=== PATIENT | female | born 1950 | race Caucasian/White ===

== ENCOUNTER 2018-09-17 09:07 | Emergency (ER) | payer MEDICARE, OTHER ==
[2018-09-17 09:20] VITALS: RESP 18
--- NOTE | 2018-09-17 10:02 | ED ---
Back Pain HPI - General Chief Complaint: Back Pain/Injury Stated Complaint: back pain Time Seen by Provider: 09/17/18 09:32 Source: patient, RN notes reviewed Mode of arrival: ambulatory Limitations: no limitations - History of Present Illness Initial Comments: This a 68-year-old female presents emergency Department chief complaint of low back pain. Patient states she injured it early Monday morning. Patient states that she has to give her son 24-hour care states that he woke up in [place] screaming, having diarrhea and urinated on the floor in the bathroom. She states that she was able to get him in the bathtub to clean up but states that she went to lift him out of the bathtub and felt a pop in her low back. She's had pain ever since it does radiate slightly into her right hip but denies any pain or paresthesias of her lower extremity. Denies any saddle anesthesias, bowel or bladder incontinence or retention. Patient states she has no dysuria no hematuria no history of herniated disc. Patient denies any fevers or chills. Patient does state that he is worse with movement and states she gets good relief while laying flat on her back. - Related Data Home Medications Medication Instructions Recorded Confirmed metFORMIN HCL [Glucophage] 500 mg PO BID 01/21/16 09/17/18 sitaGLIPtin [Januvia] 100 mg PO DAILY 01/21/16 09/17/18 Lisinopril [Zestril] 10 mg PO DAILY 09/17/18 09/17/18 Metoprolol Tartrate [Lopressor] 12.5 mg PO BID 09/17/18 09/17/18 glipiZIDE [Glucotrol] 10 mg PO AC-BRKFST 09/17/18 09/17/18 Previous Rx's Medication Instructions Recorded Albuterol Inhaler [Ventolin Hfa 1 - 2 puff INHALATION RT-Q6H PRN 07/19/15 Inhaler] #1 puff Allergies Allergy/AdvReac Type Severity Reaction Status Date / Time No Known Allergies Allergy Verified 09/17/18 10:11 Review of Systems ROS Statement: Those systems with pertinent positive or pertinent negative responses have been documented in the HPI. ROS Other: All systems not noted in ROS Statement are negative. Past Medical History Past Medical History: Diabetes Mellitus, Hyperlipidemia, Hypertension, Myocardial Infarction ([place]) Additional Past Medical History / Comment(s): PERIPHERALLY NEUROPATHY,. SINUS ALLERGIES. Last Myocardial Infarction Date:: 06-14-15 History of Any Multi-Drug Resistant Organisms: None Reported Past Surgical History: Adenoidectomy, Heart Catheterization, Tonsillectomy, Tubal Ligation Additional Past Surgical History / Comment(s): Oopherectomy, kidney stent. COLONOSCOPY Past Anesthesia/Blood Transfusion Reactions: No Reported Reaction Past Psychological History: No Psychological Hx Reported Smoking Status: Current every day smoker Past Alcohol Use History: Daily Past Drug Use History: None Reported - Past Family History Mother Family Medical History: Pneumonia Father Family Medical History: GI Bleed, Myocardial Infarction (ID) Additional Family Medical History / Comment(s): PATIENT AGE 12 WHEN FATHER -- HEART ATTACK AND BLEEDING ULCERS, ALCOHOLIC General Exam Limitations: no limitations General appearance: alert, in no apparent distress Head exam: Present: atraumatic, normocephalic, normal inspection Neck exam: Present: normal inspection. Absent: tenderness, meningismus, lymphadenopathy Respiratory exam: Present: normal lung sounds bilaterally. Absent: respiratory distress, wheezes, rales, rhonchi, stridor Cardiovascular Exam: Present: regular rate, normal rhythm, normal heart sounds. Absent: systolic murmur, diastolic murmur, rubs, gallop, clicks GI/Abdominal exam: Present: soft, normal bowel sounds. Absent: distended, tenderness, guarding, rebound, rigid Extremities exam: Present: normal inspection, full ROM, normal capillary refill, other (Lower extremity strength equal bilaterally, neurovascular intact equal color equal warmth). Absent: tenderness, pedal edema, joint swelling, calf tenderness Back exam: Present: normal inspection, full ROM, tenderness (Mild right lumbar paraspinal tenderness), paraspinal tenderness. Absent: vertebral tenderness Neurological exam: Present: alert, oriented X3, CN II-XII intact Skin exam: Present: warm, dry, intact, normal color. Absent: rash Course Vital Signs 09/17/18 09:18 Temperature 98.0 F Pulse Rate 80 Respiratory 18 Rate Blood Pressure 169/64 O2 Sat by Pulse 98 Oximetry Medical Decision Making - Medical Decision Making 60-year-old female presented emergency Department chief complaint of low back pain. Patient had x-rays of lumbar spine shows evidence of mild compression fracture. Patient will follow-up with orthopedics. Patient advised to not lift, twist or bend. Patient understands these recommendations. Patient we discharged with pain medication return parameters were discussed. - Lab Data Lab Results 09/17/18 Range/Units 10:00 Urine Color Light Yellow Urine Appearance Cloudy H (Clear) Urine pH 5.0 (5.0-8.0) Ur Specific [place] 1.005 (1.001-1.035) Urine Protein Negative (Negative) Urine Glucose (UA) 2+ H (Negative) Urine Ketones Negative (Negative) Urine Blood Negative (Negative) Urine Nitrite Negative (Negative) Urine Bilirubin Negative (Negative) Urine Urobilinogen <2.0 (<2.0) mg/dL Ur Leukocyte Esterase Large H (Negative) Urine RBC 1 (0-5) /hpf Urine WBC 3 (0-5) /hpf Ur Squamous Epith Cells 7 H (0-4) /hpf Calcium Oxalate Crystal Rare H (None) /hpf Urine Bacteria Rare H (None) /hpf Urine Mucus Rare H (None) /hpf Disposition Clinical Impression: Vertebral compression fracture Disposition: HOME SELF-CARE Condition: Stable Instructions (If sedation given, give patient instructions): Acute Low Back Pain (ED) Additional Instructions: Please return to the Emergency Department if symptoms worsen or any other concerns. Is patient prescribed a controlled substance at d/c from ED?: No Referrals: Justin Clifford MD [Primary Care Provider] - 1-2 days Alicia Shaver DO [Doctor of Osteopathic Medicine] - 1-2 days
--- NOTE | 2018-09-17 10:20 | XR ---
EXAMINATION TYPE: XR lumbosacral spine min 4V DATE OF EXAM: 09/17/2018 COMPARISON: None HISTORY: Pain, low back TECHNIQUE: Five-view lumbar spine FINDINGS: There 5 lumbar-type vertebral bodies. Pedicles are intact. Some mild facet degenerative kylee nges present greater at L5-S1. There is narrowing of the disc height L4-5. Remaining disc heights are preserved. Grade 1 spondylolisthesis of L5 anterior on S1 is present. Some mild superior endplate co mpression of L1 may be present. This is indeterminate age. IMPRESSION: 1. Mild compression deformity superior endplate L1 of indeterminate age. Correlate with the patient' s symptoms. 2. Degenerative disc changes L4-5. 3. Grade 1 spondylolisthesis of L5 anterior on S1.
[2018-09-17 10:52] LABS: Appearance,Urine Cloudy (Clear); Bacteria,Urine Rare /hpf; Bilirubin,Urine Negative (Negative); Blood,Urine Negative (Negative); Calcium Oxalate Crystals,Urine Rare /hpf; Color,Urine Light Yellow; Glucose,Urine (UA) 2+ (Negative); Ketones,Urine Negative (Negative); Leukocyte Esterase,Urine Large (Negative); Mucus,Urine Rare /hpf; Nitrite,Urine Negative (Negative); Protein,Urine Negative (Negative); RBC,Urine 1 /hpf (0-5); Specific Gravity,Urine 1.005 (1.001-1.035); Squamous Epithelial Cell,Urine 7 /hpf (0-4); Urobilinogen,Urine <2.0 mg/dL (<2.0)
[2018-09-17] MEDS ORDERED: ACET/COD 300 MG/30 MG STARTER PACK 6 TAB BTL PO STA (11:00)
[2018-09-17 11:09] VITALS: BP 119/81; PULSE 64; TEMP 97.8
== END 2018-09-17 11:10 | disposition home or self-care (01) ==
LOC: EC 09:07
DX: S32.019A Unspecified fracture of first lumbar vertebra, initial encounter for closed fracture (principal); R19.7 Diarrhea, unspecified; I10 Essential (primary) hypertension; I25.2 Old myocardial infarction; E11.42 Type 2 diabetes mellitus with diabetic polyneuropathy; F17.200 Nicotine dependence, unspecified, uncomplicated; Z96.0 Presence of urogenital implants; Z98.51 Tubal ligation status; Z98.890 Other specified postprocedural states; Z79.84 Long term (current) use of oral hypoglycemic drugs; Z79.899 Other long term (current) drug therapy; X50.0XXA Overexertion from strenuous movement or load, initial encounter; Y92.009 Unspecified place in unspecified non-institutional (private) residence as the place of occurrence of the external cause; Y93.F2 Activity, caregiving, lifting
CPT/HCPCS: 72110; 81001; 99283

== ENCOUNTER 2020-01-31 22:42 | Inpatient (IN) | payer MEDICARE, OTHER ==
--- NOTE | 2020-01-31 23:31 | XR ---
EXAMINATION TYPE: XR Hip RT and AP Pelvis DATE OF EXAM: 01/31/2020 COMPARISON: NONE HISTORY: Hip pain. Fall yesterday. TECHNIQUE: 3 views FINDINGS: There is evidence of acute impacted subcapital fracture right femur. There is no dislocatio n. Pelvic ring is intact. Proximal left femur is intact. Sacroiliac joints appear normal. IMPRESSION: Acute impacted subcapital fracture right femur.
--- NOTE | 2020-01-31 23:36 | CT ---
EXAMINATION TYPE: CT brain wo con DATE OF EXAM: 01/31/2020 COMPARISON: 04/29/2017 HISTORY: Fall Headache CT DLP: 1099.4 mGycm Automated exposure control for dose reduction was used. There is mild cerebral cortical atrophy. There is no mass effect nor midline shift. There is no sign of intracranial hemorrhage. There is 3 x 1 cm area of hypodensity in the right anterior internal caps ule related to old infarct. The calvarium is intact. Cerebellum is intact. Sella turcica appears norm al. IMPRESSION: Cerebral atrophy. 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 No acute intracranial abnormality. No change co mpared to old exam.
[2020-01-31] MEDS ORDERED: THIAMINE 100 MG/ML 2 ML VIAL IM STA (23:41)
[2020-01-31] MEDS ORDERED: LORazepam 2 MG/ML INJ IV PRN ×3 (23:41)
[2020-01-31] MEDS ORDERED: MORPHINE SULFATE 4 MG/ML SYRINGE IV STA (23:46)
[2020-02-01] MEDS ORDERED: hydrALAZINE HCL 20 MG/ML 1 ML VIAL IVP STA (00:06)
--- NOTE | 2020-02-01 00:10 | ED ---
General Adult HPI - General Source: patient, RN notes reviewed, old records reviewed Mode of arrival: wheelchair Limitations: no limitations <Milton Cisneros - Last Filed: 02/01/20 01:11> <Chad Kuhn - Last Filed: 02/02/20 07:55> - General Chief complaint: Fall Stated complaint: Fall Time Seen by Provider: 01/31/20 22:50 - History of Present Illness Initial comments: 69-year-old female patient presents ED chief complaint of fall yesterday area patient reports that yesterday she was walking she fell forward tripping on a sidewalk hitting her face and landing on her right hip. Patient chief complaint is right hip pain. Denies any headache loss of consciousness or any other acute complaints. Systemic: Pt denies fatigue, fever/chills, rash. Pt denies weakness, night sweats, weight loss. Neuro: Pt denies headache, visual disturbances, syncope or pre-syncope. HEENT: Pt denies ocular discharge or irritation, otalgia, rhinorrhea, pharyngitis or notable lymphadenopathy. Cardiopulmonary: Pt denies chest pain, SOB, heart palpitations, dyspnea on exertion. Abdominal/GI: Pt denies abdominal pain, n/v/d. : Pt denies dysuria, burning w/ urination, frequency/urgency. Denies new onset urinary or bowel incontinence. Neuro: Pt denies new onset weakness, paresthesias. (Milton Cisneros) - Related Data Home Medications Medication Instructions Recorded Confirmed metFORMIN HCL [Glucophage] 500 mg PO BID 01/21/16 02/01/20 sitaGLIPtin [Januvia] 100 mg PO DAILY 01/21/16 02/01/20 Metoprolol Tartrate [Lopressor] 12.5 mg PO BID 09/17/18 02/01/20 glipiZIDE [Glucotrol] 10 mg PO AC-BRKFST 09/17/18 02/01/20 lisinopriL [Zestril] 10 mg PO DAILY 09/17/18 02/01/20 Albuterol Sulfate [Ventolin HFA] 1 - 2 puff INHALATION RT-Q6H PRN 02/01/20 02/01/20 Atorvastatin [Lipitor] 10 mg PO DAILY 02/01/20 02/01/20 Allergies Allergy/AdvReac Type Severity Reaction Status Date / Time No Known Allergies Allergy Verified 02/01/20 13:24 Review of Systems ROS Other: All systems not noted in ROS Statement are negative. <Milton Cisnreos - Last Filed: 02/01/20 01:11> ROS Other: All systems not noted in ROS Statement are negative. <HattieChad - Last Filed: 02/02/20 07:55> ROS Statement: Those systems with pertinent positive or pertinent negative responses have been documented in the HPI. Past Medical History Past Medical History: Diabetes Mellitus, Hyperlipidemia, Hypertension, Myocardial Infarction ([place]) Additional Past Medical History / Comment(s): PERIPHERALLY NEUROPATHY,. SINUS ALLERGIES. Last Myocardial Infarction Date:: 06-14-15 History of Any Multi-Drug Resistant Organisms: None Reported Past Surgical History: Adenoidectomy, Heart Catheterization, Tonsillectomy, Tubal Ligation Additional Past Surgical History / Comment(s): Oopherectomy, kidney stent. COLONOSCOPY Past Anesthesia/Blood Transfusion Reactions: No Reported Reaction Past Psychological History: No Psychological Hx Reported Smoking Status: Current every day smoker Past Alcohol Use History: Daily Past Drug Use History: None Reported - Past Family History Mother Family Medical History: Pneumonia Father Family Medical History: GI Bleed, Myocardial Infarction (MS) Additional Family Medical History / Comment(s): PATIENT AGE 12 WHEN FATHER -- HEART ATTACK AND BLEEDING ULCERS, ALCOHOLIC <Milton Cisneros - Last Filed: 02/01/20 01:11> - Past Family History Mother Family Medical History: Pneumonia Father Family Medical History: GI Bleed, Myocardial Infarction (MS) Additional Family Medical History / Comment(s): PATIENT AGE 12 WHEN FATHER -- HEART ATTACK AND BLEEDING ULCERS, ALCOHOLIC Brother(s) Family Medical History: Diabetes Mellitus Sister(s) Family Medical History: Cancer (Breast cancer) Daughter(s) Family Medical History: No Reported History Son(s) Family Medical History: No Reported History <Chad Kuhn - Last Filed: 02/02/20 07:55> General Exam Limitations: no limitations <Milton Cisneros - Last Filed: 02/01/20 01:11> - General Exam Comments Initial Comments: Constitutional: NAD, AOX3, Pt has pleasant affect. HEENT: NC/AT, trachea midline, neck supple, no lymphadenopathy. External ears appear normal, without discharge. Mucous membranes moist. Eyes PERRLA, EOM intact. There is no scleral icterus. No pallor noted. Cardiopulmonary: RRR, no murmurs, rubs or gallops, no JVD noted. Lungs CTAB in anterior and posterior oliver. No peripheral edema. Abdominal exam: Abdomen soft and non-distended. Abdomen non-tender to palpation in all 4 quadrants. Bowel sounds active in LLQ. No hepatosplenomegaly. No ecchymosis Neuro: CN II-XII intact. No nuchal rigidity. No raccon eyes, no gorman sign, no hemotympanum. No cervical spinal tenderness. MSK: Right hip is mildly tender to palpation. No other areas of tenderness. Distal pulses are intact and equal. Full active ROM in upper extremities, 5/5 stregnth. Full active range of motion left lower extremity. (Milton Cisneros) Course Vital Signs 01/31/20 02/01/20 02/01/20 22:46 00:40 02:26 Temperature 98.2 F 98.4 F 98.2 F Pulse Rate 95 82 82 Respiratory 18 14 16 Rate Blood Pressure 193/97 132/76 158/85 O2 Sat by Pulse 99 98 98 Oximetry Medical Decision Making - Lab Data Result diagrams: 02/01/20 00:17 02/01/20 00:17 - EKG Data -: EKG Interpreted by Az (and Dr. Moffett ) <Milton Cisneros - Last Filed: 02/01/20 01:11> - Lab Data Result diagrams: 02/01/20 00:17 02/01/20 08:08 <Chad Kuhn - Last Filed: 02/02/20 07:55> - Medical Decision Making 69-year-old female patient presents today for evaluation of a fall yesterday and had pain today. Patient reports she has been unable to walk on her hip seems to the pain. Plain film of right hip didn't display acute impacted subcapital fracture right femur. CT brain without contrast does not display any acute process. Dizziness when she presses. Left investigations are overall unremarkable. Patient was hypertensive and was given 1 dose of antihypertensive medication. EKG is nonischemic. Patient will be admitted for orthopedic evaluation. Patient is a regular drinker and was placed on a CIWA scale. Case discussed with Dr. Moffett. (Milton Cisneros) I saw this patient in conjunction with the physician surgical physician assistant. I performed independent history and physical exam. Agree with case management. (Chad Kuhn) - Lab Data Lab Results 01/31/20 02/01/20 02/01/20 Range/Units 23:40 00:17 00:17 WBC 10.4 (3.8-10.6) k/uL RBC 4.40 (3.80-5.40) m/uL Hgb 14.1 (11.4-16.0) gm/dL Hct 42.9 (34.0-46.0) % MCV 97.4 (80.0-100.0) fL MCH 32.1 (25.0-35.0) pg MCHC 32.9 (31.0-37.0) g/dL RDW 12.8 (11.5-15.5) % Plt Count 264 (150-450) k/uL Neutrophils % 74 % Lymphocytes % 14 % Monocytes % 10 % Eosinophils % 1 % Basophils % 0 % Neutrophils # 7.7 (1.3-7.7) k/uL Lymphocytes # 1.4 (1.0-4.8) k/uL Monocytes # 1.0 (0-1.0) k/uL Eosinophils # 0.1 (0-0.7) k/uL Basophils # 0.0 (0-0.2) k/uL PT 9.4 (9.0-12.0) sec INR 0.9 (<1.2) APTT 24.2 (22.0-30.0) sec Sodium (137-145) mmol/L Potassium (3.5-5.1) mmol/L Chloride (98-107) mmol/L Carbon Dioxide (22-30) mmol/L Anion Gap mmol/L BUN (7-17) mg/dL Creatinine (0.52-1.04) mg/dL Est GFR (CKD-EPI)AfAm (>60 ml/min/1.73 sqM) Est GFR (CKD-EPI)NonAf (>60 ml/min/1.73 sqM) Glucose (74-99) mg/dL Calcium (8.4-10.2) mg/dL Total Bilirubin (0.2-1.3) mg/dL AST (14-36) U/L ALT (4-34) U/L Alkaline Phosphatase (38-126) U/L Total Protein (6.3-8.2) g/dL Albumin (3.5-5.0) g/dL Urine Color Yellow Urine Appearance Clear (Clear) Urine pH 6.5 (5.0-8.0) Ur Specific [place] 1.015 (1.001-1.035) Urine Protein Trace H (Negative) Urine Glucose (UA) 4+ H (Negative) Urine Ketones Negative (Negative) Urine Blood Negative (Negative) Urine Nitrite Negative (Negative) Urine Bilirubin Negative (Negative) Urine Urobilinogen <2.0 (<2.0) mg/dL Ur Leukocyte Esterase Negative (Negative) Blood Type Confirm 02/01/20 02/01/20 Range/Units 00:17 00:17 WBC (3.8-10.6) k/uL RBC (3.80-5.40) m/uL Hgb (11.4-16.0) gm/dL Hct (34.0-46.0) % MCV (80.0-100.0) fL MCH (25.0-35.0) pg MCHC (31.0-37.0) g/dL RDW (11.5-15.5) % Plt Count (150-450) k/uL Neutrophils % % Lymphocytes % % Monocytes % % Eosinophils % % Basophils % % Neutrophils # (1.3-7.7) k/uL Lymphocytes # (1.0-4.8) k/uL Monocytes # (0-1.0) k/uL Eosinophils # (0-0.7) k/uL Basophils # (0-0.2) k/uL PT (9.0-12.0) sec INR (<1.2) APTT (22.0-30.0) sec Sodium 133 L (137-145) mmol/L Potassium 4.0 (3.5-5.1) mmol/L Chloride 99 (98-107) mmol/L Carbon Dioxide 27 (22-30) mmol/L Anion Gap 7 mmol/L BUN 10 (7-17) mg/dL Creatinine 0.44 L (0.52-1.04) mg/dL Est GFR (CKD-EPI)AfAm >90 (>60 ml/min/1.73 sqM) Est GFR (CKD-EPI)NonAf >90 (>60 ml/min/1.73 sqM) Glucose 185 H (74-99) mg/dL Calcium 9.5 (8.4-10.2) mg/dL Total Bilirubin 0.9 (0.2-1.3) mg/dL AST 30 (14-36) U/L ALT 20 (4-34) U/L Alkaline Phosphatase 102 (38-126) U/L Total Protein 7.3 (6.3-8.2) g/dL Albumin 4.6 (3.5-5.0) g/dL Urine Color Urine Appearance (Clear) Urine pH (5.0-8.0) Ur Specific [place] (1.001-1.035) Urine Protein (Negative) Urine Glucose (UA) (Negative) Urine Ketones (Negative) Urine Blood (Negative) Urine Nitrite (Negative) Urine Bilirubin (Negative) Urine Urobilinogen (<2.0) mg/dL Ur Leukocyte Esterase (Negative) Blood Type Confirm A Positive - EKG Data EKG Comments: Ventricular rate 79, [place] interval 158, QRS 88, QT/QTc 470/88. Possible prior inferior infarct AGE INDETERMINATE. ANTERIOR SEPTAL INFARCT AGE UNDETERMINED. NO CONCERN FOR ACUTE ISCHEMIA AT THIS TIME. (Milton Cisneros) Disposition Is patient prescribed a controlled substance at d/c from ED?: No <iMlton Cisneros - Last Filed: 02/01/20 01:11> <Chad Kuhn - Last Filed: 02/02/20 07:55> Clinical Impression: Hip fracture Disposition: ADMITTED IP TO THIS HOSP Condition: Serious
[2020-02-01 00:25] LABS: Basophils % (A) 0 %; Eosinophils # (A) 0.1 k/uL (0-0.7); Eosinophils % (A) 1 %; HCT 42.9 % (34.0-46.0); HGB 14.1 gm/dL (11.4-16.0); Lymphocytes # (A) 1.4 k/uL (1.0-4.8); Lymphocytes % (A) 14 %; MCH 32.1 pg (25.0-35.0); MCHC 32.9 g/dL (31.0-37.0); MCV 97.4 fL (80.0-100.0); Mean Platelet Volume 6.6; Monocytes % (A) 10 %; Neutrophils # (A) 7.7 k/uL (1.3-7.7); Neutrophils % (A) 74 %; Platelet Count 264 k/uL (150-450); RDW 12.8 % (11.5-15.5); WBC 10.4 k/uL (3.8-10.6)
[2020-02-01 00:35] LABS: ALT 20 U/L (4-34); AST 30 U/L (14-36); African American GFR (CKD) >90 (>60 ml/min/1.73 sqM); Albumin 4.6 g/dL (3.5-5.0); Alkaline Phosphatase 102 U/L (38-126); Anion Gap 7 mmol/L; Blood Urea Nitrogen 10 mg/dL (7-17); Calcium 9.5 mg/dL (8.4-10.2); Carbon Dioxide 27 mmol/L (22-30); Chloride 99 mmol/L (98-107); Glucose 185 mg/dL (74-99); Non-African American GFR(CKD) >90 (>60 ml/min/1.73 sqM); Sodium 133 mmol/L (137-145); Total Bilirubin 0.9 mg/dL (0.2-1.3); Total Protein 7.3 g/dL (6.3-8.2)
[2020-02-01 00:49] LABS: INR 0.9 (<1.2); Partial Thromboplastin Time 24.2 sec (22.0-30.0); Prothrombin Time 9.4 sec (9.0-12.0)
--- NOTE | 2020-02-01 01:10 | XR ---
EXAMINATION TYPE: XR chest 1V DATE OF EXAM: 02/01/2020 COMPARISON: 07/19/2015 HISTORY: Preop. Right hip fracture. TECHNIQUE: Single view FINDINGS: There is no heart failure nor confluent pneumonic infiltrate. Costophrenic angles are clear . Heart size is normal. Bony thorax is intact. IMPRESSION: No active cardiopulmonary disease. No change. Normal heart.
[2020-02-01] MEDS ORDERED: NALOXONE 0.4 MG/ML 1 ML VIAL IV PRN (01:13)
[2020-02-01] MEDS: SODIUM CHLORIDE 0.9% 1,000 ML IV SCH ×2 (02:33→17:02)
[2020-02-01 08:51] LABS: African American GFR (CKD) >90 (>60 ml/min/1.73 sqM); Anion Gap 5 mmol/L; Blood Urea Nitrogen 8 mg/dL (7-17); Carbon Dioxide 28 mmol/L (22-30); Chloride 100 mmol/L (98-107); Glucose 175 mg/dL (74-99); Non-African American GFR(CKD) >90 (>60 ml/min/1.73 sqM); Potassium 3.9 mmol/L (3.5-5.1); Sodium 133 mmol/L (137-145)
[2020-02-01] MEDS: THIAMINE 100 MG TAB PO SCH ×2 (09:30→18:10)
[2020-02-01] MEDS: MORPHINE SULFATE 4 MG/ML SYRINGE IV PRN ×2 (09:35→23:20)
--- NOTE | 2020-02-01 11:32 | P.HPOR ---
History of Present Illness H&P Date: 02/01/20 This is a 69 year-old female who is admitted for right hip fracture. Patient is seen and evaluated at bedside today. Patient states that she tripped and fell 2 days ago at a bon[place]. Patient states that she did hit her head, but she denies any loss of conciousness. Patient admits to pain in the right hip today. Patient's past medical history is significant for diabetes mellitus with peripheral neuropathy, hypertension, hyperlipidemia and myocardial infarction. Patient denies any fever/chills, numbness, weakness, tingling, abdominal pain, shortness of breath or chest pain. Review of Systems See HPI. Past Medical History Past Medical History: Diabetes Mellitus, Hyperlipidemia, Hypertension, My ocardial Infarction ([place]) Additional Past Medical History / Comment(s): PERIPHERALLY NEUROPATHY,. SINUS ALLERGIES. [place], getting hearing aides. Last Myocardial Infarction Date:: 06-14-15 History of Any Multi-Drug Resistant Organisms: None Reported Past Surgical History: Adenoidectomy, Heart Catheterization, Tonsillectomy, Tubal Ligation Additional Past Surgical History / Comment(s): Left Oopherectomy, kidney stent. COLONOSCOPY Past Anesthesia/Blood Transfusion Reactions: No Reported Reaction Smoking Status: Current every day smoker Past Alcohol Use History: Daily Additional Past Alcohol Use History / Comment(s): STARTED SMOKING AT AGE 13 and currently still is. Pack last 2 days to 1 day. Drinks 2 tall beers daily. - Past Family History Mother Family Medical History: Pneumonia Father Family Medical History: GI Bleed, Myocardial Infarction (AL) Additional Family Medical History / Comment(s): PATIENT AGE 12 WHEN FATHER -- HEART ATTACK AND BLEEDING ULCERS, ALCOHOLIC Medications and Allergies Home Medications Medication Instructions Recorded Confirmed Type Albuterol Inhaler (Mhu) [Ventolin 1 - 2 puff INHALATION RT-Q6H PRN 07/19/15 09/17/18 Rx Hfa Inhaler (Mhu)] #1 puff metFORMIN HCL [Glucophage] 500 mg PO BID 01/21/16 09/17/18 History sitaGLIPtin [Januvia] 100 mg PO DAILY 01/21/16 09/17/18 History Metoprolol Tartrate [Lopressor] 12.5 mg PO BID 09/17/18 09/17/18 History glipiZIDE [Glucotrol] 10 mg PO AC-BRKFST 09/17/18 09/17/18 History lisinopriL [Zestril] 10 mg PO DAILY 09/17/18 09/17/18 History Allergies Allergy/AdvReac Type Severity Reaction Status Date / Time No Known Allergies Allergy Verified 01/31/20 22:49 Physical Examination On exam patient is resting comfortably in bed in no acute distress. Patient is alert and oriented 3. Right lower extremity is warm and well perfused. There is pain with logroll of the right lower extremity. There is mild tenderness to palpation over the right hip. Skin is intact. There is no ecchymosis. Calf is soft and nontender to palpation. Sensation intact. Patient has good range of motion of the right foot and ankle. Dorsalis pedis pulse is 2+. Neurovascular status circulatory status are intact. There is mild facial bruising. Otherwise head is normocephalic. Patient has good range of motion of the neck without pain or difficulty. Exams of bilateral upper extremities and the left lower extremity are within normal limits. Results X-rays of the right hip and pelvis dated 02/01/2020 show a subcapital fracture of the right hip. Brain CT is negative for any acute process. - Labs Labs: Abnormal Lab Results - Last 24 Hours (Table) 02/01/20 02/01/20 Range/Units 00:17 08:08 Sodium 133 L 133 L (137-145) mmol/L Creatinine 0.44 L 0.46 L (0.52-1.04) mg/dL Glucose 185 H 175 H (74-99) mg/dL H & H 02/01/20 Range/Units 00:17 Hgb 14.1 (11.4-16.0) gm/dL Hct 42.9 (34.0-46.0) % Coagulation 02/01/20 Range/Units 00:17 INR 0.9 (<1.2) Result Diagrams: 02/01/20 00:17 02/01/20 08:08 Assessment and Plan (1) Hip fracture Current Visit: Yes Status: Acute Code(s): S72.009A - FRACTURE OF UNSP PART OF NECK OF UNSP FEMUR, INIT SNOMED Code(s): 528699972 (2) Fall Current Visit: Yes Status: Acute Code(s): W19.XXXA - UNSPECIFIED FALL, INITIAL ENCOUNTER SNOMED Code(s): 9669664 (3) Diabetes Current Visit: No Status: Acute Code(s): E11.9 - TYPE 2 DIABETES MELLITUS WITHOUT COMPLICATIONS SNOMED Code(s): 55783194 (4) HTN (hypertension) Current Visit: No Status: Acute Code(s): I10 - ESSENTIAL (PRIMARY) HYPERTENSION SNOMED Code(s): 43171931 (5) Hyperlipemia Current Visit: No Status: Acute Code(s): E78.5 - HYPERLIPIDEMIA, UNSPECIFIED SNOMED Code(s): 77760289 Plan: #1. Nonweightbearing to the right lower extremity. #2. NPO after midnight. #3. Continue pain control. #4. Appreciate input from medicine. #5. Planning for right hip hemiarthroplasty on 02/02/2020 pending medical clearance and consent.
[2020-02-01 12:17] LABS: Glucose,Whole Blood 224 mg/dL (75-99)
[2020-02-01 13:23] LABS: Appearance,Urine Clear (Clear); Bilirubin,Urine Negative (Negative); Blood,Urine Negative (Negative); Color,Urine Yellow; Glucose,Urine (UA) 4+ (Negative); Ketones,Urine Negative (Negative); Leukocyte Esterase,Urine Negative (Negative); Nitrite,Urine Negative (Negative); PH, Urine 6.5 (5.0-8.0); Protein,Urine Trace (Negative); Specific Gravity,Urine 1.015 (1.001-1.035); Urobilinogen,Urine <2.0 mg/dL (<2.0)
[2020-02-01] MEDS: INSULIN ASPART (NovoLOG) 100 UNIT/ML VIAL SQ SCH ×3 (13:40→20:14)
[2020-02-01] MEDS ORDERED: ENOXAPARIN 40 MG/0.4 ML SYRINGE SQ STA (16:58)
--- NOTE | 2020-02-01 16:59 | P.CONS ---
History of Present Illness - Reason for Consult Consult date: 02/01/20 Medical management - Chief Complaint Right hip fracture after fall - History of Present Illness 69-year-old pleasant female patient of Dr. Deandre Clifford. He she has underlying history of diabetes mellitus hyperlipidemia COPD, PA, diabetes polyneuropathy, admitted through the emergency room secondary to hip fracture that occurred 2 days ago. Apparently patient tripped and fell, at her friend's bonfire, patient denies any loss of consciousness, patient denies any lightheadedness or dizziness of facial pain, however there is abrasions in the face. Patient was seen in emergency room with x-ray showing acute impacted subcapital fracture right femur, chest x-ray x shows no acute disease, normal heart, no pleural effusion bony thorax intact EKG shows normal sinus rhythm, most likely old infe rior PA, no acute changes old anteroseptal infarct, patient currently is a smoker, has chronic cough, patient denies any dyspnea and exertion, no chest pain on exertion. Patient denies any history of CVA in the past, no PE DVT or ulcerations the past. Patient is on Januvia and metformin and glipizide for diabetes control, blood sugars in the hospital ranges between 175-224, creatinine of 0.46 urinalysis shows 4+ glucose no leukocytes. Patient is scheduled to have right hip hemiarthroplasty on 02/02/2020, patient would be cleared with ASA anesthesia risk risk of class II, however uncontrolled diabetes, has COPD, RCR I (revised cardiac risk index) of 0, normal creatinine and no history of CVA, no history of CHF. Patient is asymptomatic with her CAD, she is cleared with average risk patient denies any previous anesthesia problems in the past denies any prolonged intubation or difficulty of intubation, patient has chronic cough with chronic sputum production, pro-calcitonin level to be obtained, empiric Levaquin to be started, nebulized treatments Review of Systems Constitutional: Reports as per HPI, Denies anorexia, Denies chills, Denies chr onic headaches, Denies chronic pain, Denies daytime sleepiness, Denies fatigue, Denies fever, Denies lethargy, Denies malaise, Denies night sweats, Denies poor appetite, Denies sweats, Denies weakness, Denies weight gain, Denies weight loss Ears, nose, mouth and throat: Reports as per HPI, Denies ant. neck pain, Denies bleeding gums, Denies dental pain, Denies dysphagia, Denies epistaxis, Denies headache, Denies hoarseness, Denies mouth pain, Denies nasal congestion, Denies nasal discharge, Denies neck fullness/pressure, Denies neck lump, Denies nose pain, Denies odynophagia, Denies post-nasal drip, Denies sinus pain, Denies sinus pressure, Denies swelling in mouth, Denies swelling in throat, Denies sore throat, Denies vertigo, Denies voice changes Cardiovascular: Reports as per HPI Respiratory: Reports as per HPI, Reports cough (Chronic) Gastrointestinal: Reports as per HPI Genitourinary: Reports as per HPI Menstruation: Reports as per HPI Musculoskeletal: Reports as per HPI, Denies arm numbness/tingling, Denies atrophy, Denies fractures, Denies frequent falls, Denies gait dysfunction, Denies hot joints, Denies leg numbness/tingling, Denies limitation of motion, Denies loss of height, Denies low back pain, Denies morning stiffness, Denies muscle cramps, Denies muscle weakness, Denies myalgias, Denies neck pain, Denies neck stiffness, Denies prior amputations, Denies redness of joints, Denies shooting arm pain, Denies shooting leg pain Integumentary: Reports as per HPI (CC. He deformed toenails, which is curling close to 3 inches long), Reports change in hair/nails Neurological: Reports as per HPI Psychiatric: Reports as per HPI, Denies anhedonia, Denies anxiety, Denies anxiety attacks, Denies change in appetite, Denies change in libido, Denies change in sleep habits, Denies confusion, Denies depression, Denies difficulty concentrating, Denies disorientation, Denies hallucinations, Denies hopelessness, Denies hypersomnia, Denies insomnia, Denies irritability, Denies memory loss, Denies mood swings, Denies paranoia, Denies sadness/tearfulness, Denies sleep disturbances, Denies suicidal ideation Endocrine: Reports as per HPI Hematologic/Lymphatic: Reports as per HPI Allergic/Immunologic: Reports as per HPI Past Medical History Past Medical History: Diabetes Mellitus, Hyperlipidemia, Hypertension, Myocardial Infarction (PA) Additional Past Medical History / Comment(s): PERIPHERALLY NEUROPATHY,. SINUS ALLERGIES. RAMPART, getting hearing aides. Last Myocardial Infarction Date:: 06-14-15 History of Any Multi-Drug Resistant Organisms: None Reported Past Surgical History: Adenoidectomy, Heart Catheterization, Tonsillectomy, Tubal Ligation Additional Past Surgical History / Comment(s): Left Oopherectomy, kidney stent. COLONOSCOPY Past Anesthesia/Blood Transfusion Reactions: No Reported Reaction Smoking Status: Current every day smoker Past Alcohol Use History: Daily Additional Past Alcohol Use History / Comment(s): STARTED SMOKING AT AGE 13 and currently still is. Pack last 2 days to 1 day. Drinks 2 tall beers daily. - Past Family History Mother Family Medical History: Pneumonia Father Family Medical History: GI Bleed, Myocardial Infarction (PA) Additional Family Medical History / Comment(s): PATIENT AGE 12 WHEN FATHER -- HEART ATTACK AND BLEEDING ULCERS, ALCOHOLIC Brother(s) Family Medical History: Diabetes Mellitus Sister(s) Family Medical History: Cancer (Breast cancer) Daughter(s) Family Medical History: No Reported History Son(s) Family Medical History: No Reported History Medications and Allergies Home Medications Medication Instructions Recorded Confirmed Type metFORMIN HCL [Glucophage] 500 mg PO BID 01/21/16 02/01/20 History sitaGLIPtin [Januvia] 100 mg PO DAILY 01/21/16 02/01/20 History Metoprolol Tartrate [Lopressor] 12.5 mg PO BID 09/17/18 02/01/20 History glipiZIDE [Glucotrol] 10 mg PO AC-BRKFST 09/17/18 02/01/20 History lisinopriL [Zestril] 10 mg PO DAILY 09/17/18 02/01/20 History Albuterol Sulfate [Ventolin HFA] 1 - 2 puff INHALATION RT-Q6H PRN 02/01/20 02/01/20 History Atorvastatin [Lipitor] 10 mg PO DAILY 02/01/20 02/01/20 History Allergies Allergy/AdvReac Type Severity Reaction Status Date / Time No Known Allergies Allergy Verified 02/01/20 13:24 Physical Exam Vitals: Vital Signs Temp Pulse Pulse Resp BP BP Pulse Ox 02/01/20 12:27 98.0 F 79 16 185/80 99 02/01/20 06:00 99.2 F 81 20 146/78 96 02/01/20 02:58 97.7 F 89 17 153/81 98 02/01/20 02:26 98.2 F 82 16 158/85 98 02/01/20 00:40 98.4 F 82 14 132/76 98 01/31/20 22:46 98.2 F 95 18 193/97 99 Intake and Output 01/31/20 02/01/20 02/01/20 22:59 06:59 14:59 Intake Total 890 Balance 890 Intake: Intake, IV Titration 300 Amount Sodium Chloride 0.9% 1, 300 000 ml @ 75 mls/hr IV . [id number] [facility] Rx#:[id number] Oral 590 Other: Voiding Method Bedpan # Voids 1 # Bowel Movements 1 Weight 49.442 kg 49 kg - Constitutional General appearance: cooperative, no acute distress - EENT Eyes: anicteric sclerae, EOMI, PERRLA, dentition normal, normal appearance ENT: NA/AT, normal oropharynx - Neck Neck: no lymphadenopathy, normal ROM, no other, no rigidity, no stridor, no thy romegaly Carotids: bilateral: bruit absent - Respiratory Respiratory: right: wheezing, negative: prolonged expiration, prolonged inspira tion - Cardiovascular Rhythm: regular Heart sounds: normal: S1, S2 Abnormal Heart Sounds: no systolic murmur, no diastolic murmur, no rub, no S3 Gallop, no S4 Gallop, no click, no other - Gastrointestinal General gastrointestinal: normal bowel sounds, soft - Integumentary Integumentary: normal, normal turgor - Neurologic Neurologic: CNII-XII intact - Musculoskeletal Musculoskeletal: strength equal bilaterally - Psychiatric Psychiatric: A&O x's 3, appropriate affect, intact judgment & insight Results CBC & Chem 7: 02/01/20 00:17 02/01/20 08:08 Labs: Abnormal Lab Results - Last 24 Hours (Table) 01/31/20 02/01/20 02/01/20 Range/Units 23:40 00:17 08:08 Sodium 133 L 133 L (137-145) mmol/L Creatinine 0.44 L 0.46 L (0.52-1.04) mg/dL Glucose 185 H 175 H (74-99) mg/dL POC Glucose (mg/dL) (75-99) mg/dL Urine Protein Trace H (Negative) Urine Glucose (UA) 4+ H (Negative) 02/01/20 Range/Units 12:03 Sodium (137-145) mmol/L Creatinine (0.52-1.04) mg/dL Glucose (74-99) mg/dL POC Glucose (mg/dL) 224 H (75-99) mg/dL Urine Protein (Negative) Urine Glucose (UA) (Negative) Laboratory Results WBC 10.4 k/uL (3.8-10.6) 02/01/20 00:17 RBC 4.40 m/uL (3.80-5.40) 02/01/20 00:17 Hgb 14.1 gm/dL (11.4-16.0) 02/01/20 00:17 Hct 42.9 % (34.0-46.0) 02/01/20 00:17 MCV 97.4 fL (80.0-100.0) 02/01/20 00:17 MCH 32.1 pg (25.0-35.0) 02/01/20 00:17 MCHC 32.9 g/dL (31.0-37.0) 02/01/20 00:17 RDW 12.8 % (11.5-15.5) 02/01/20 00:17 Plt Count 264 k/uL (150-450) 02/01/20 00:17 Neutrophils % 74 % 02/01/20 00:17 Lymphocytes % 14 % 02/01/20 00:17 Monocytes % 10 % 02/01/20 00:17 Eosinophils % 1 % 02/01/20 00:17 Basophils % 0 % 02/01/20 00:17 Neutrophils # 7.7 k/uL (1.3-7.7) 02/01/20 00:17 Lymphocytes # 1.4 k/uL (1.0-4.8) 02/01/20 00:17 Monocytes # 1.0 k/uL (0-1.0) 02/01/20 00:17 Eosinophils # 0.1 k/uL (0-0.7) 02/01/20 00:17 Basophils # 0.0 k/uL (0-0.2) 02/01/20 00:17 PT 9.4 sec (9.0-12.0) 02/01/20 00:17 INR 0.9 (<1.2) 02/01/20 00:17 APTT 24.2 sec (22.0-30.0) 02/01/20 00:17 Sodium 133 mmol/L (137-145) L 02/01/20 08:08 Potassium 3.9 mmol/L (3.5-5.1) 02/01/20 08:08 Chloride 100 mmol/L (98-107) 02/01/20 08:08 Carbon Dioxide 28 mmol/L (22-30) 02/01/20 08:08 Anion Gap 5 mmol/L 02/01/20 08:08 BUN 8 mg/dL (7-17) 02/01/20 08:08 Creatinine 0.46 mg/dL (0.52-1.04) L 02/01/20 08:08 Est GFR (CKD-EPI)AfAm >90 (>60 ml/min/1.73 sqM) 02/01/20 08:08 Est GFR (CKD-EPI)NonAf >90 (>60 ml/min/1.73 sqM) 02/01/20 08:08 Glucose 175 mg/dL (74-99) H 02/01/20 08:08 POC Glucose (mg/dL) 224 mg/dL (75-99) H 02/01/20 12:03 POC Glu Train Engineer JACQUIE Gina Rivero 02/01/20 12:03 Calcium 9.0 mg/dL (8.4-10.2) 02/01/20 08:08 Total Bilirubin 0.9 mg/dL (0.2-1.3) 02/01/20 00:17 AST 30 U/L (14-36) 02/01/20 00:17 ALT 20 U/L (4-34) 02/01/20 00:17 Alkaline Phosphatase 102 U/L (38-126) 02/01/20 00:17 Total Protein 7.3 g/dL (6.3-8.2) 02/01/20 00:17 Albumin 4.6 g/dL (3.5-5.0) 02/01/20 00:17 Urine Color Yellow 01/31/20 23:40 Urine Appearance Clear (Clear) 01/31/20 23:40 Urine pH 6.5 (5.0-8.0) 01/31/20 23:40 Ur Specific Chancellor 1.015 (1.001-1.035) 01/31/20 23:40 Urine Protein Trace (Negative) H 01/31/20 23:40 Urine Glucose (UA) 4+ (Negative) H 01/31/20 23:40 Urine Ketones Negative (Negative) 01/31/20 23:40 Urine Blood Negative (Negative) 01/31/20 23:40 Urine Nitrite Negative (Negative) 01/31/20 23:40 Urine Bilirubin Negative (Negative) 01/31/20 23:40 Urine Urobilinogen <2.0 mg/dL (<2.0) 01/31/20 23:40 Ur Leukocyte Esterase Negative (Negative) 01/31/20 23:40 Assessment and Plan Plan: 1. Right impacted subcapital fracture right hip, status post traumatic fall, underlying osteoporosis, without any loss of consciousness, scheduled for right hemiarthroplasty on 02/02/[address] Malcolm patient is medically cleared with ASA class II however patient has uncontrolled diabetes, and is a smoker with some mild COPD exacerbation, we'll going to maximize her preoperative coronary condition with incentive spirometry, budesonide 0.5 mg twice a day, and DuoNeb scheduled 4 times a day, check for pro-calcitonin, start on IV Levaquin 2. Diabetes mellitus type 2 with peripheral neuropathy on Januvia and metformin glipizide, Accu-Cheks before meals and at bedtime check A1c 3. Hyperlipidemia, check for CPK to evaluate for rhabdomyolysis and determine safety of the medication 4. COPD with mild exacerbation, currently a smoker, started budesonide 0.5 mg twice a day, scheduled DuoNeb, check for pro-calcitonin, sputum culture no evidence of hypoxemia at this time, O2 when necessary will be provided incentive spirometry 5.Current tobacco use at one pack every 2 weeks, 6. Hoarse voice suspect chronic, patient needs investigation of chronic laryngitis as an outpatient to see ENT would need most likely laryngoscopy 6. Patient declined any tobacco cessation replacement program at this time 7. History of CAD, last cath was 2014, with 40% stenosis mid left anterior descending, 40% RCA, patient is currently asymptomatic, on we'll restart aspirin postop continue DIXON inhibitor beta rommel 8., DVT prophylaxis GI prophylaxis patient to start an aspirin 81 mg twice a day after surgery tomorrow 9. Hypertensive cardiovascular disease on lisinopril 10 mg daily metoprolol 12.5 mg twice a day Thank you Dr. Griffin in allowing us to participate in the care of your patient. We are going to follow her with you during this current hospital stay, recommendations to follow depending on her clinical progress
[2020-02-01 17:22] LABS: Glucose,Whole Blood 86 mg/dL (75-99)
[2020-02-01] MEDS ORDERED: ERGOCALCIFEROL 50,000 UNIT CAP PO SCH (18:00)
[2020-02-01] MEDS: LEVOFLOXACIN 500MG-D5W PMX 500 MG in DEXTROSE/WATER 1 100ML.BAG IVPB SCH (18:09)
[2020-02-01] MEDS: metFORMIN 500 MG TAB PO SCH (18:10)
[2020-02-01] MEDS: IPRATROPIUM-ALBUTEROL 3 ML NEB INHALATION SCH (19:26)
[2020-02-01] MEDS: BUDESONIDE 0.5 MG/2 ML NEBU INHALATION SCH (19:26)
[2020-02-01] MEDS: METOPROLOL TARTRATE 12.5 MG TAB PO SCH (20:10)
[2020-02-01 20:13] LABS: Glucose,Whole Blood 230 mg/dL (75-99)
[2020-02-02] MEDS: SODIUM CHLORIDE 0.9% 1,000 ML IV SCH ×3 (03:58→16:44)
[2020-02-02 06:58] LABS: Glucose,Whole Blood 125 mg/dL (75-99)
[2020-02-02] MEDS: IPRATROPIUM-ALBUTEROL 3 ML NEB INHALATION SCH ×3 (07:11→19:43)
[2020-02-02] MEDS: BUDESONIDE 0.5 MG/2 ML NEBU INHALATION SCH ×2 (07:11→19:43)
[2020-02-02] MEDS ORDERED: HYDROmorphone 0.5 MG/0.5 ML SYRINGE IVP PRN ×3 (07:32→10:32)
[2020-02-02] MEDS ORDERED: MIDAZOLAM 2 MG/2 ML VIAL IV PRN (07:32)
[2020-02-02] MEDS: metFORMIN 500 MG TAB PO SCH ×2 (07:58→17:49)
[2020-02-02] MEDS: INSULIN ASPART (NovoLOG) 100 UNIT/ML VIAL SQ SCH ×4 (07:58→20:07)
[2020-02-02] MEDS: THIAMINE 100 MG TAB PO SCH ×2 (08:39→17:49)
[2020-02-02] MEDS: LINAGLIPTIN 5 MG TABLET PO SCH (08:40)
[2020-02-02] MEDS: METOPROLOL TARTRATE 12.5 MG TAB PO SCH ×2 (08:43→20:10)
[2020-02-02] MEDS: lisinopriL 10 MG TAB PO SCH (08:43)
[2020-02-02] MEDS: ATORVASTATIN 10 MG TAB PO SCH (08:43)
[2020-02-02] MEDS ORDERED: HYDROcodone/APAP 5-325MG 1 EACH TAB PO PRN (10:32)
[2020-02-02] MEDS ORDERED: MAGNESIUM HYDROXIDE 2,400 MG/10 ML CUP PO PRN (10:32)
[2020-02-02] MEDS ORDERED: NALOXONE 0.4 MG/ML 1 ML VIAL IV PRN (10:32)
[2020-02-02 11:17] LABS: Glucose,Whole Blood 138 mg/dL (75-99)
[2020-02-02 11:30] LABS: Basophils % (A) 0 %; Eosinophils % (A) 0 %; HCT 32.8 % (34.0-46.0); Lymphocytes # (A) 1.3 k/uL (1.0-4.8); Lymphocytes % (A) 15 %; MCH 31.7 pg (25.0-35.0); MCHC 32.9 g/dL (31.0-37.0); MCV 96.4 fL (80.0-100.0); Mean Platelet Volume 6.8; Monocytes # (A) 0.8 k/uL (0-1.0); Monocytes % (A) 9 %; Neutrophils # (A) 6.1 k/uL (1.3-7.7); Neutrophils % (A) 72 %; Platelet Count 199 k/uL (150-450); RDW 12.5 % (11.5-15.5); WBC 8.5 k/uL (3.8-10.6)
[2020-02-02 11:34] LABS: HGB 10.8 gm/dL (11.4-16.0)
[2020-02-02] MEDS: LACTATED RINGERS 1,000 ML IV SCH (11:53)
[2020-02-02] MEDS ORDERED: IV FLUID CONTINUATION 1,000 ML IV ONE (12:50)
[2020-02-02] MEDS ORDERED: fentaNYL (PF) 50 MCG/ML 2 ML AMP ONE (13:50)
[2020-02-02] MEDS ORDERED: PROPOFOL 10 MG/ML 20 ML VIAL IV ONE (13:50)
[2020-02-02] MEDS ORDERED: MIDAZOLAM 2 MG/2 ML VIAL ONE (13:50)
--- NOTE | 2020-02-02 14:32 | P.OP ---
Date of Procedure: 02/02/20 Preoperative Diagnosis: Subcapital fracture right hip Postoperative Diagnosis: Subcapital fracture right hip Procedure(s) Performed: Right hip hemiarthroplasty Implants: Gill and nephew Polarstem size 2 standard Gill & Nephew tandem unipolar,43 mm Gill & Nephew tandem unipolar 12/14 taper sleeve, +0 mm All components were press-fit. Anesthesia: spinal Surgeon: Maksim Malcolm Mri Ct Tech #1: Mariangel Villavicencio Estimated Blood Loss (ml): 50 Pathology: other (Femoral head) Condition: stable Disposition: PACU Indications for Procedure: This is a 69-year-old female that sustained a ground-level fall yesterday, resulting of the subcapital fracture right hip. Patient was seen and evaluated and after discussing the surgical nonsurgical treatment options with her at length recommended hemiarthroplasty of her right hip and informed consent was obtained. Operative Findings: Operative findings are consistent with a subcapital fracture of the right hip Description of Procedure: Patient was seen and evaluated in the preoperative area, consent was reviewed and the operative site was marked with a skin marker. Patient was then brought to the operating room and given 2 g of Ancef intravenously. A spinal anesthetic was administered by the anesthesia department. Patient was then placed in a lateral decubitus position and held with a Montral hip positioner. The bony prominences were well-padded and an axillary roll was placed. The hip was then prepped and draped in the usual sterile fashion. A universal timeout was then performed which confirmed the patient's name, surgical site, ALLERGIES, and procedure. A standard anterolateral approach the hip was performed. Skin and subcutaneous tissues were sharply incised with an incision centered over the tip of the greater trochanter. The incision was carefully dissected down to the fascia. The fascia was then split in line with skin incision and a Charnley retractor was gently placed. The abductors were then identified, and the anterior one third of the abductors were released off the trochanter and one large sleeve. The fracture hematoma was evacuated and the proximal femur was exposed by ext ernally rotating the femur. The fracture site was readily visualized. Next, using an osteotomy guide, the proximal femur was osteotomized at the appropriate level of the above the lesser trochanter. This bone was then removed. Attention was then turned to the femoral head. Using a corkscrew, the femoral head was removed from the acetabulum without incident. The acetabulum was inspected, and found to have no significant arthrosis. Femoral head was then measured. Attention was then redirected to the femur. Proximal femur was re-exposed and a box osteotome was used to lateralize the proximal femur. A hand salter was then used to locate the femoral canal. Sequential broaching was then performed to the appropriate size. The calcar was then planed and trial head and neck were placed. The hip was then gently reduced. Leg lengths were checked and found to be equal. Hip was then taken through a full range of motion was stable throughout. The hip was then gently dislocated with the aid of a bone hook. The trial head and neck were then removed. The femoral broach was then inspected and found to have a secure fit. The broach was then removed. The hip was then copiously irrigated with antibiotic solution with a pulse lavage. Components were then opened and the femoral stem was then impacted into the proximal femur. The trunnion was cleaned and dried, and the femoral head and neck were then impacted. Hip was again gently reduced. Again leg lengths were checked and found to be equal, and the hip was taken through a full range of motion and found to be stable. The hip was again irrigated with pulsatile lavage, then followed by the Irrrisept solution. The abductors were then repaired through drill holes to the bone to the greater trochanter, utilizing #5 Ethibond suture. Next the fascia was repaired with #2 strata fix suture. The subcutaneous tissue was then repaired with 3-0 Vicryl. The subcuticular tissue was then repaired with 3-0 strata fix suture. Skin was then closed with Dermabond tape. A sterile dressing was then applied and the patient was transported to the recovery room in stable condition. Mri Ct Tech OCTAVIA Banegas was required due to the complexity of surgery the need for skilled surgical aides teacher. She assisted with positioning the patient, draping the patient, retraction during the surgery, and closure of the wound.
[2020-02-02] MEDS ORDERED: LACTATED RINGERS 1,000 ML IV ONE (14:55)
--- NOTE | 2020-02-02 15:28 | P.PN ---
Subjective Progress Note Date: 02/02/20 69-year-old pleasant female patient of Dr. Deandre Clifford. He she has underlying history of diabetes mellitus hyperlipidemia COPD, VT, diabetes polyneuropathy, admitted through the emergency room secondary to hip fracture that occurred 2 days ago. Apparently patient tripped and fell, at her friend's bonfire, patient denies any loss of consciousness, patient denies any lightheadedness or dizziness of facial pain, however there is abrasions in the face. Patient was seen in emergency room with x-ray showing acute impacted subcapital fracture right femur, chest x-ray x shows no acute disease, normal heart, no pleural effusion bony thorax intact EKG shows normal sinus rhythm, most likely old inferior VT, no acute changes old anteroseptal infarct, patient currently is a smoker, has chronic cough, patient denies any dyspnea and exertion, no chest pain on exertion. Patient denies any history of CVA in the past, no PE DVT or ulcerations the past. Patient is on Januvia and metformin and glipizide for diabetes control, blood sugars in the hospital ranges between 175-224, creatinine of 0.46 urinalysis shows 4+ glucose no leukocytes. Patient is scheduled to have right hip hemiarthroplasty on 02/02/2020, patient would be cleared with ASA anesthesia risk risk of class II, however uncontrolled di abetes, has COPD, RCR I (revised cardiac risk index) of 0, normal creatinine and no history of CVA, no history of CHF. Patient is asymptomatic with her CAD, she is cleared with average risk patient denies any previous anesthesia problems in the past denies any prolonged intubation or difficulty of intubation, patient has chronic cough with chronic sputum production, pro-calcitonin level to be obt ained, empiric Levaquin to be started, nebulized treatments 02/01. Patient is undergoing a right hemiarthroplasty, for subcapital fracture of the right hip blood sugars are in the 130s to 230s, blood pressure 07/19/1959 T- max 99.4 urinalysis negative for WBC pro-calcitonin 0.05, continue nebulized t reatments, can switch to oral antibiotic in the next 24 hours Review of Systems Constitutional: Reports as per HPI, Denies anorexia, Denies chills, Denies chr onic headaches, Denies chronic pain, Denies daytime sleepiness, Denies fatigue, Denies fever, Denies lethargy, Denies malaise, Denies night sweats, Denies poor appetite, Denies sweats, Denies weakness, Denies weight gain, Denies weight loss Ears, nose, mouth and throat: Reports as per HPI, Denies ant. neck pain, Denies bleeding gums, Denies dental pain, Denies dysphagia, Denies epistaxis, Denies headache, Denies hoarseness, Denies mouth pain, Denies nasal congestion, Denies nasal discharge, Denies neck fullness/pressure, Denies neck lump, Denies nose pain, Denies odynophagia, Denies post-nasal drip, Denies sinus pain, Denies sinus pressure, Denies swelling in mouth, Denies swelling in throat, Denies sore throat, Denies vertigo, Denies voice changes Cardiovascular: Reports as per HPI Respiratory: Reports as per HPI, Reports cough (Chronic) Gastrointestinal: Reports as per HPI Genitourinary: Reports as per HPI Menstruation: Reports as per HPI Musculoskeletal: Reports as per HPI, Denies arm numbness/tingling, Denies atrophy, Denies fractures, Denies frequent falls, Denies gait dysfunction, Denies hot joints, Denies leg numbness/tingling, Denies limitation of motion, Denies loss of height, Denies low back pain, Denies morning stiffness, Denies muscle cramps, Denies muscle weakness, Denies myalgias, Denies neck pain, Denies neck stiffness, Denies prior amputations, Denies redness of joints, Denies shooting arm pain, Denies shooting leg pain Integumentary: Reports as per HPI (CC. He deformed toenails, which is curling close to 3 inches long), Reports change in hair/nails Neurological: Reports as per HPI Psychiatric: Reports as per HPI, Denies anhedonia, Denies anxiety, Denies anxiety attacks, Denies change in appetite, Denies change in libido, Denies change in sleep habits, Denies confusion, Denies depression, Denies difficulty concentrating, Denies disorientation, Denies hallucinations, Denies hopelessness, Denies hypersomnia, Denies insomnia, Denies irritability, Denies memory loss, Denies mood swings, Denies paranoia, Denies sadness/tearfulness, Denies sleep disturbances, Denies suicidal ideation Endocrine: Reports as per HPI Hematologic/Lymphatic: Reports as per HPI Allergic/Immunologic: Reports as per HPI Objective - Vital Signs Vital signs: Vital Signs Temp 99.1 F 02/02/20 11:44 Pulse 60 02/02/20 11:44 Resp 18 02/02/20 11:44 BP 124/60 02/02/20 11:44 Pulse Ox 96 02/02/20 11:44 Intake & Output 02/01/20 02/02/20 02/02/20 18:59 06:59 18:59 Intake Total 900 1200 300 Output Total 50 Balance 900 1200 250 Intake: IV 300 Intake, IV Titration 900 Amount Sodium Chloride 0.9% 1, 900 000 ml @ 75 mls/hr IV . [id number] [facility] Rx#:[id number] Oral 900 300 Output: Estimated Blood Loss 50 Other: Voiding Method Bedpan Bedpan Bedpan # Voids 2 2 # Bowel Movements 1 - Constitutional General appearance: Present: cooperative, no acute distress - EENT Eyes: Present: EOMI, PERRLA, dentition normal ENT: Present: NA/AT, normal oropharynx - Neck Neck: Present: normal ROM - Respiratory Respiratory: bilateral: CTA, negative: diminished, dullness, rales, rhonchi - Cardiovascular Rhythm: regular Heart sounds: normal: S1, S2 Abnormal Heart Sounds: Absent: systolic murmur, diastolic murmur, rub, S3 Gallop, S4 Gallop, click, other - Gastrointestinal General gastrointestinal: Present: normal bowel sounds. Absent: absent bowel sounds, decreased bowel sounds, distended, hepatomegaly, hyperactive bowel sounds, organomegaly, rigid, scaphoid, soft, splenomegaly, tenderness, umbilical hernia, ventral hernia - Neurologic Neurologic: Present: CNII-XII intact - Psychiatric Psychiatric: Present: A&O x's 3, appropriate affect - Labs CBC & Chem 7: 02/02/20 10:56 02/01/20 08:08 Labs: Abnormal Lab Results - Last 24 Hours (Table) 02/01/20 02/02/20 02/02/20 Range/Units 20:12 06:56 10:56 RBC 3.40 L (3.80-5.40) m/uL Hgb 10.8 L D (11.4-16.0) gm/dL Hct 32.8 L (34.0-46.0) % POC Glucose (mg/dL) 230 H 125 H (75-99) mg/dL 02/02/20 Range/Units 11:14 RBC (3.80-5.40) m/uL Hgb (11.4-16.0) gm/dL Hct (34.0-46.0) % POC Glucose (mg/dL) 138 H (75-99) mg/dL Assessment and Plan Plan: 1. Right impacted subcapital fracture right hip, status post traumatic fall, underlying osteoporosis, without any loss of consciousness, scheduled for right hemiarthroplasty on 02/02/2020 postop day #[address] Malcolm patient is medically cleared with ASA class II however patient has uncontrolled diabetes, and is a smoker with some mild COPD exacerbation, we'll going to maximize her preoperative coronary condition with incentive spirometry, budesonide 0.5 mg twice a day, and DuoNeb scheduled 4 times a day, check for pro-calcitonin, start on IV Levaquin 2. Diabetes mellitus type 2 with peripheral neuropathy on Januvia and metformin glipizide, Accu-Cheks before meals and at bedtime check A1c 3. Hyperlipidemia, check for CPK to evaluate for rhabdomyolysis and determine safety of the medication 4. COPD with mild exacerbation, currently a smoker, started budesonide 0.5 mg twice a day, scheduled DuoNeb, check for pro-calcitonin, sputum culture no evidence of hypoxemia at this time, O2 when necessary will be provided incentive spirometry 5.Current tobacco use at one pack every 2 weeks, 6. Hoarse voice suspect chronic, patient needs investigation of chronic laryngitis as an outpatient to see ENT would need most likely laryngoscopy 6. Patient declined any tobacco cessation replacement program at this time 7. History of CAD, last cath was 2014, with 40% stenosis mid left anterior descending, 40% RCA, patient is currently asymptomatic, on we'll restart aspirin postop continue DIXON inhibitor beta rommel 8., DVT prophylaxis GI prophylaxis patient to start an aspirin 81 mg twice a day after surgery tomorrow 9. Hypertensive cardiovascular disease on lisinopril 10 mg daily metoprolol 12.5 mg twice a day Thank you Dr. Griffin in allowing us to participate in the care of your patient. We are going to follow her with you during this current hospital stay, recommendations to follow depending on her clinical progress
--- NOTE | 2020-02-02 15:37 | XR ---
EXAMINATION TYPE: XR Hip Limited RT DATE OF EXAM: 02/02/2020 COMPARISON: NONE HISTORY: Postop TECHNIQUE: Single view FINDINGS: There is a right hip prosthesis. Components are in anatomic position. IMPRESSION: No complicating process seen.
[2020-02-02] MEDS: HYDROmorphone 0.5 MG/0.5 ML SYRINGE IVP PRN ×2 (16:44→21:44)
[2020-02-02 17:09] LABS: Glucose,Whole Blood 114 mg/dL (75-99)
[2020-02-02] MEDS: LEVOFLOXACIN 500MG-D5W PMX 500 MG in DEXTROSE/WATER 1 100ML.BAG IVPB SCH (17:49)
[2020-02-02] MEDS: HYDROcodone/APAP 5-325MG 1 EACH TAB PO PRN (19:41)
[2020-02-02 20:09] LABS: Glucose,Whole Blood 161 mg/dL (75-99)
[2020-02-02] MEDS: SENNOSIDES-DOCUSATE SODIUM 1 EACH TAB PO SCH (20:10)
[2020-02-03] MEDS: SODIUM CHLORIDE 0.9% 1,000 ML IV SCH ×5 (00:52→20:45)
[2020-02-03] MEDS: HYDROmorphone 0.5 MG/0.5 ML SYRINGE IVP PRN ×2 (04:19→10:43)
[2020-02-03 07:32] LABS: Glucose,Whole Blood 131 mg/dL (75-99)
[2020-02-03] MEDS: IPRATROPIUM-ALBUTEROL 3 ML NEB INHALATION SCH ×3 (08:05→21:20)
[2020-02-03] MEDS: BUDESONIDE 0.5 MG/2 ML NEBU INHALATION SCH ×2 (08:05→21:19)
[2020-02-03] MEDS: glipiZIDE 10 MG TAB PO SCH (08:14)
[2020-02-03] MEDS: METOPROLOL TARTRATE 12.5 MG TAB PO SCH ×2 (08:14→20:43)
[2020-02-03] MEDS: metFORMIN 500 MG TAB PO SCH ×2 (08:14→18:07)
[2020-02-03] MEDS: LINAGLIPTIN 5 MG TABLET PO SCH (08:14)
[2020-02-03] MEDS: THIAMINE 100 MG TAB PO SCH ×2 (08:14→18:07)
[2020-02-03] MEDS: RIVAROXABAN 10 MG TAB PO SCH (08:14)
[2020-02-03] MEDS: lisinopriL 10 MG TAB PO SCH (08:14)
[2020-02-03] MEDS: ATORVASTATIN 10 MG TAB PO SCH (08:14)
[2020-02-03] MEDS: HYDROcodone/APAP 5-325MG 1 EACH TAB PO PRN ×3 (08:15→20:44)
[2020-02-03] MEDS: INSULIN ASPART (NovoLOG) 100 UNIT/ML VIAL SQ SCH ×4 (08:15→20:44)
[2020-02-03] MEDS: LACTATED RINGERS 1,000 ML IV SCH (10:39)
--- NOTE | 2020-02-03 11:39 | CDI ---
Documentation Clarification Form Date: 02/03/2020 11:32:45 AM From: Edel Marie CCS, CCDS Admit Date: 02/01/2020 01:50:00 AM Patient Name: Lizy Gill Visit Number: [id number] Discharge Date: ATTENTION: The Clinical Documentation Specialists (CDI) and [facility] Coding Staff appreciate your assistance in clarifying documentation. Please respond to the clarification below the line at the bottom and electronically sign. The CDI & [facility] Coding staff will review the response and follow-up if needed. Please note: Queries are made part of the Legal Health Record. If you have any questions, please contact the author of this message via ITS. Dr. Cady Humphrey: Per the 01/31 Medical Management Consult & subsequent Progress Note on 02/01: "Patient has uncontrolled diabetes." History/Risk Factors: DM II w/peripheral neuropathy, Hyperlipidemia, COPD, Smoker. Clinical Indicators: Patient presented to the ED on 01/31 with a Right Impacted Subcapital Fracture Right Hip, status post Right Hip Hemiarthroplasty. Treatment: Monitor Blood Glucose, po Glucotrol, po Metformin, Insulin sq, IV Ativan, IM Vit B1, IV Morphine Sulfate, IV Apresoline, IV Levaquin. In order to capture the severity of Illness and necessary documentation specificity, please clarify: Diabetes Mellitus Type II with Hyperglycemia Diabetes Mellitus Type II without Hyperglycemia Other, please specify Unable to Determine (Last Revision: March 2017) MTDD
[2020-02-03 12:25] LABS: Glucose,Whole Blood 124 mg/dL (75-99)
--- NOTE | 2020-02-03 13:31 | P.PN ---
Subjective Progress Note Date: 02/03/20 69-year-old pleasant female patient of Dr. Deandre Clifford. He she has underlying history of diabetes mellitus hyperlipidemia COPD, NV, diabetes polyneuropathy, admitted through the emergency room secondary to hip fracture that occurred 2 days ago. Apparently patient tripped and fell, at her friend's bonfire, patient denies any loss of consciousness, patient denies any lightheadedness or dizziness of facial pain, however there is abrasions in the face. Patient was seen in emergency room with x-ray showing acute impacted subcapital fracture right femur, chest x-ray x shows no acute disease, normal heart, no pleural effusion bony thorax intact EKG shows normal sinus rhythm, most likely old inferior NV, no acute changes old anteroseptal infarct, patient currently is a smoker, has chronic cough, patient denies any dyspnea and exertion, no chest pain on exertion. Patient denies any history of CVA in the past, no PE DVT or ulcerations the past. Patient is on Januvia and metformin and glipizide for diabetes control, blood sugars in the hospital ranges between 175-224, creatinine of 0.46 urinalysis shows 4+ glucose no leukocytes. Patient is scheduled to have right hip hemiarthroplasty on 02/02/2020, patient would be cleared with ASA anesthesia risk risk of class II, however uncontrolled [place], has COPD, RCR I (revised cardiac risk index) of 0, normal creatinine and no history of CVA, no history of CHF. Patient is asymptomatic with her CAD, she is cleared with average risk patient denies any previous anesthesia problems in the past denies any prolonged intubation or difficulty of intubation, patient has chronic cough with chronic sputum production, pro-calcitonin level to be obtained, empiric Levaquin to be started, nebulized treatments 02/01. Patient is undergoing a right hemiarthroplasty, for subcapital fracture of the right hip blood sugars are in the 130s to 230s, blood pressure 07/19/1959 T- max 99.4 urinalysis negative for WBC pro-calcitonin 0.05, continue nebulized tr eatments, can switch to oral antibiotic in the next 24 hours 02/02: Patient underwent right hemiarthroplasty yesterday with Dr. Malcolm. She is complaining of feeling tired. No chest pain or shortness of breath. She has been afebrile, heart rate 75, blood pressure 161/67, pulse ox 95% on room air. Blood sugars are running between 124 and 161. Urinalysis negative, no leukocytosis, pro-calcitonin negative. Levaquin will be discontinued as no source of infection found. Review Of Systems Constitutional: No fever, no chills, no night sweats. No weight change. No w eakness, fatigue or lethargy. No daytime sleepiness. EENT: No headache. No blurred vision or double vision, no loss of vision. No loss of Hearing, no ringing in the ears, no dizziness. No nasal drainage or congestion. No epistaxis. No sore throat. Lungs: No shortness of breath, cough, no sputum production. No wheezing. Cardiovascular: No chest pain, no lower extremity edema. No palpitations. No paroxysmal nocturnal dyspnea. No orthopnea. No lightheadedness or dizziness. No syncopal episodes. Abdominal: No abdominal pain. No nausea, vomiting. No diarrhea. No constipation. No bloody or tarry stools.. No loss of appetite. Genitourinary: No dysuria, increased frequency, urgency. No urinary retention. Musculoskeletal: No myalgias. No muscle weakness, no gait dysfunction, no f requent falls. No back pain. No neck pain. Integumentary: No wounds, no lesions. No rash or pruritus. No unusual bruising. No change in hair or nails. Neurologic: No aphasia. No facial droop. No change in mentation. No head injury. No headache. No paralysis. No paresthesia. Psychiatric: No depression. No anxiety. No mood swings. Endocrine: No abnormal blood sugars. No weight change. No excessive sweating or thirst. No cold intolerance. Physical Examination Gen: This is a 69-year-old female. Patient is resting in bed and appears to be comfortable and in no acute distress. HEENT: Head is atraumatic, normocephalic. Pupils equal, round. Sclerae is anicteric. NECK: Supple. No JVD. No lymphadenopathy. No thyromegaly. LUNGS: Clear to auscultation. No wheezes or rhonchi. No intercostal retractions. HEART: Regular rate and rhythm. No murmur. ABDOMEN: Soft. Bowel sounds are present. No masses. No tenderness. EXTREMITIES: No pedal edema. No calf tenderness. NEUROLOGICAL: Patient is awake, alert and oriented x3. Cranial nerves 2 through 12 are grossly intact. Assessment and plan 1. Right impacted subcapital fracture right hip, status post right hemiarthroplasty on 02/02/2020. 2. Diabetes mellitus type 2, uncontrolled with hyperglycemia, with peripheral neuropathy on Januvia and metformin glipizide, Accu-Cheks before meals and at bedtime check A1c 3. Hyperlipidemia, check for CPK to evaluate for rhabdomyolysis and determine safety of the medication 4. COPD with mild exacerbation, currently a smoker, started budesonide 0.5 mg twice a day, scheduled DuoNeb, check for pro-calcitonin, sputum culture no evidence of hypoxemia at this time, O2 when necessary will be provided incentive spirometry 5. Current tobacco use at one pack every 2 weeks, 6. Hoarse voice suspect chronic, patient needs investigation of chronic laryngitis as an outpatient to see ENT would need most likely laryngoscopy 7. Patient declined any tobacco cessation replacement program at this time 8. History of CAD, last cath was 2014, with 40% stenosis mid left anterior descending, 40% RCA, patient is currently asymptomatic, on we'll restart aspirin postop continue DIXON inhibitor beta rommel 9. DVT prophylaxis. Xarelto. 10. GI prophylaxis. Protonix. 11. Hypertensive cardiovascular disease on lisinopril 10 mg daily metoprolol 12.5 mg twice a day Discharge plan: [facility] in the [place]. Anticipate patient will be ready for discharge tomorrow. COVID-19 testing ordered. Impression and plan of care have been directed as dictated by the signing physician. Breann Damon nurse practitioner acting as scribe for signing physician. Objective - Vital Signs Vital signs: Vital Signs Temp 98.1 F 02/03/20 04:22 Pulse 75 02/03/20 04:22 Resp 20 02/03/20 04:22 BP 161/67 02/03/20 04:22 Pulse Ox 95 02/03/20 04:22 Intake & Output 02/02/20 02/03/20 02/03/20 18:59 06:59 18:59 Intake Total 900 1770 Output Total 50 Balance 850 1770 Intake: IV 300 Intake, IV Titration 600 880 Amount Sodium Chloride 0.9% 1, 480 000 ml @ 60 mls/hr IV . [id number] [facility] Rx#:[id number] Sodium Chloride 0.9% 1, 600 300 000 ml @ 75 mls/hr IV . [id number] [facility] Rx#:[id number] ceFAZolin 2 gm In Sodium 100 Chloride 0.9% 50 ml @ 100 mls/hr IVPB Q8HR [facility] Rx# :[id number] Oral 890 Output: Estimated Blood Loss 50 Other: Voiding Method Bedpan Bedpan # Voids 3 2 - Labs CBC & Chem 7: 02/02/20 10:56 02/01/20 08:08 Labs: Abnormal Lab Results - Last 24 Hours (Table) 02/02/20 02/02/20 02/02/20 Range/Units 10:56 11:14 17:08 RBC 3.40 L (3.80-5.40) m/uL Hgb 10.8 L D (11.4-16.0) gm/dL Hct 32.8 L (34.0-46.0) % POC Glucose (mg/dL) 138 H 114 H (75-99) mg/dL 02/02/20 02/03/20 Range/Units 20:06 07:31 RBC (3.80-5.40) m/uL Hgb (11.4-16.0) gm/dL Hct (34.0-46.0) % POC Glucose (mg/dL) 161 H 131 H (75-99) mg/dL
--- NOTE | 2020-02-03 14:45 | P.PN ---
Subjective Progress Note Date: 02/03/20 This is a 69-year-old female who is status post right hip hemiarthroplasty. This is postoperative day #1 and patient is seen and evaluated at bedside. Patient states that her pain is well controlled and she has been working with physical therapy. Patient denies any new complaints today. Objective - Vital Signs Vital signs: Vital Signs Temp 98 F 02/03/20 11:20 Pulse 60 02/03/20 11:20 Resp 12 02/03/20 11:20 BP 105/51 02/03/20 11:20 Pulse Ox 95 02/03/20 11:20 Intake & Output 02/02/20 02/03/20 02/03/20 18:59 06:59 18:59 Intake Total 900 1770 480 Output Total 50 Balance 850 1770 480 Intake: IV 300 Intake, IV Titration 600 880 480 Amount Sodium Chloride 0.9% 1, 480 480 000 ml @ 60 mls/hr IV . [id number] [facility] Rx#:[id number] Sodium Chloride 0.9% 1, 600 300 000 ml @ 75 mls/hr IV . [id number] [facility] Rx#:[id number] ceFAZolin 2 gm In Sodium 100 Chloride 0.9% 50 ml @ 100 mls/hr IVPB Q8HR [facility] Rx# :[id number] Oral 890 Output: Estimated Blood Loss 50 Other: Voiding Method Bedpan Bedpan Bedpan # Voids 3 2 2 - Exam Vital signs are stable. Patient is in no acute distress and is alert and oriented 3. Calf is soft and nontender to palpation. Dressing is clean, dry, and intact. Patient has full foot and ankle motion without pain or difficulty. Neurovascular status and circulatory status are intact. - Labs CBC & Chem 7: 02/02/20 10:56 02/01/20 08:08 Labs: Abnormal Lab Results - Last 24 Hours (Table) 02/02/20 02/02/20 02/03/20 Range/Units 17:08 20:06 07:31 POC Glucose (mg/dL) 114 H 161 H 131 H (75-99) mg/dL 02/03/20 Range/Units 12:24 POC Glucose (mg/dL) 124 H (75-99) mg/dL Assessment and Plan (1) Hip fracture Current Visit: Yes Status: Acute Code(s): S72.009A - FRACTURE OF UNSP PART OF NECK OF UNSP FEMUR, INIT SNOMED Code(s): 371866087 (2) Fall Current Visit: Yes Status: Acute Code(s): W19.XXXA - UNSPECIFIED FALL, INITIAL ENCOUNTER SNOMED Code(s): 8201897 (3) Diabetes Current Visit: No Status: Acute Code(s): E11.9 - TYPE 2 DIABETES MELLITUS WITHOUT COMPLICATIONS SNOMED Code(s): 21547138 (4) HTN (hypertension) Current Visit: No Status: Acute Code(s): I10 - ESSENTIAL (PRIMARY) HYPERTENSION SNOMED Code(s): 01119311 (5) Hyperlipemia Current Visit: No Status: Acute Code(s): E78.5 - HYPERLIPIDEMIA, UNSPECIFIED SNOMED Code(s): 40195837 Plan: Continue routine postop care and pain control. Continue hip dislocation precautions and use of abductor pillow for 6 weeks. Continue anticoagulation with Xarelto. Weightbearing as tolerated with a walker. Leave dressing in place for 10 days. Appreciate input from medicine. Anticipate discharge home with homecare or to ECF in the next 24-48 hours.
[2020-02-03 17:11] LABS: Glucose,Whole Blood 139 mg/dL (75-99)
[2020-02-03 17:30] LABS: INR 1.1 (<1.2); Prothrombin Time 11.1 sec (9.0-12.0)
[2020-02-03 20:13] LABS: Glucose,Whole Blood 162 mg/dL (75-99)
[2020-02-03] MEDS: SENNOSIDES-DOCUSATE SODIUM 1 EACH TAB PO SCH (20:43)
[2020-02-03] MEDS ORDERED: ATORVASTATIN 80 MG TAB PO SCH (21:00)
[2020-02-04] MEDS: HYDROcodone/APAP 5-325MG 1 EACH TAB PO PRN ×3 (03:14→14:42)
[2020-02-04 06:57] LABS: Glucose,Whole Blood 126 mg/dL (75-99)
[2020-02-04] MEDS: BUDESONIDE 0.5 MG/2 ML NEBU INHALATION SCH (07:05)
[2020-02-04] MEDS: IPRATROPIUM-ALBUTEROL 3 ML NEB INHALATION SCH ×2 (07:05→13:34)
[2020-02-04] MEDS: INSULIN ASPART (NovoLOG) 100 UNIT/ML VIAL SQ SCH ×2 (07:24→13:18)
[2020-02-04] MEDS ORDERED: PANTOPRAZOLE 40 MG TABLET PO SCH (07:30)
[2020-02-04] MEDS: METOPROLOL TARTRATE 12.5 MG TAB PO SCH (07:43)
[2020-02-04] MEDS: THIAMINE 100 MG TAB PO SCH (07:43)
[2020-02-04] MEDS: glipiZIDE 10 MG TAB PO SCH (07:43)
[2020-02-04] MEDS: metFORMIN 500 MG TAB PO SCH (07:43)
[2020-02-04] MEDS: RIVAROXABAN 10 MG TAB PO SCH (07:44)
[2020-02-04] MEDS: LINAGLIPTIN 5 MG TABLET PO SCH (07:44)
[2020-02-04] MEDS: lisinopriL 10 MG TAB PO SCH (07:44)
[2020-02-04 08:30] LABS: HCT 28.8 % (34.0-46.0); HGB 9.5 gm/dL (11.4-16.0); MCH 32.4 pg (25.0-35.0); MCHC 33.1 g/dL (31.0-37.0); MCV 98.1 fL (80.0-100.0); Mean Platelet Volume 7.7; Platelet Count 188 k/uL (150-450); RBC 2.93 m/uL (3.80-5.40); RDW 12.2 % (11.5-15.5); WBC 9.6 k/uL (3.8-10.6)
[2020-02-04 08:35] LABS: African American GFR (CKD) >90 (>60 ml/min/1.73 sqM); Anion Gap 3 mmol/L; Blood Urea Nitrogen 9 mg/dL (7-17); Calcium 7.8 mg/dL (8.4-10.2); Carbon Dioxide 28 mmol/L (22-30); Chloride 99 mmol/L (98-107); Cholesterol 89 mg/dL (<200); Glucose 99 mg/dL (74-99); HDL Cholesterol 41 mg/dL (40-60); LDL Cholesterol,Calculated 34 mg/dL (0-99); Non-African American GFR(CKD) >90 (>60 ml/min/1.73 sqM); Potassium 3.3 mmol/L (3.5-5.1); Sodium 130 mmol/L (137-145); Triglycerides 71 mg/dL (<150)
--- NOTE | 2020-02-04 10:48 | P.DS ---
Providers Date of admission: 02/01/20 01:50 Attending physician: Maskim Malcolm Consults: 02/01/20 01:13 Consult Physician Stat Consulting Provider: Amadou Correia Reason/Comments: hip fracture, pre op / medical management Do you want consulting provider notified?: Yes 02/01/20 17:22 Consult Physician Routine Consulting Provider: Adams Aragon Consult Reason/Comments: onychographosis severe with dm neuropathy Do you want consulting provider notified?: Yes Primary care physician: Justin Clifford - Discharge Diagnosis(es) (1) Hip fracture Current Visit: Yes Status: Acute (2) Fall Current Visit: Yes Status: Acute (3) Diabetes Current Visit: No Status: Acute (4) HTN (hypertension) Current Visit: No Status: Acute (5) Hyperlipemia Current Visit: No Status: Acute Hospital Course: This is a 69-year-old female who sustained a subcapital fracture of the right hip after a fall. The patient presented for evaluation in the emergency room. After discussion and consideration patient elects to proceed with right hip hemiarthroplasty. The patient is seen preoperatively by Dr. Malcolm and medically cleared for surgery by internal medicine. Patient is admitted to [facility] on 02/01/2020 and right hip hemiarthroplasty is performed on 02/02/2020. The procedures performed without complication or sequelae. The patient is doing well postoperatively. Labs and vital signs are stable on day of discharge. On day of discharge patient's hip incision is healing well. There is minimal erythema. There is no drainage noted at this time. There is minimal soft tissue swelling to the hip and thigh. Patient has full foot and ankle motion without difficulty or pain. Calf is soft and nontender to palpation. Neurovascular status to the right lower extremity is intact. Patient is discharged to rehab in good condition. Please see med rec for accurate list of home medications. Patient Condition at Discharge: Serious Plan - Discharge Summary Discharge Rx Participant: No New Discharge Prescriptions: Sd Pantoprazole [Protonix] 40 mg PO AC-BRKFST tablet. Budesonide [Pulmicort] 0.5 mg INHALATION RT-BID ml Thiamine [Vitamin B-1] 100 mg PO BID-W/MEALS tab Ergocalciferol [Vitamin D2 (DRISDOL)] 50,000 unit PO Q7D cap HYDROcodone/APAP 5-325MG [[place] 5-325] 1 - 2 tab PO Q6HR PRN #48 tab PRN Reason: Pain Sennosides [Senokot] 2 tab PO DAILY PRN #60 tablet PRN Reason: Constipation Rivaroxaban [Xarelto] 10 mg PO DAILY #35 tab Continue metFORMIN HCL [Glucophage] 500 mg PO BID sitaGLIPtin [Januvia] 100 mg PO DAILY glipiZIDE [Glucotrol] 10 mg PO AC-BRKFST Metoprolol Tartrate [Lopressor] 12.5 mg PO BID lisinopriL [Zestril] 10 mg PO DAILY Albuterol Sulfate [Ventolin HFA] 1 - 2 puff INHALATION RT-Q6H PRN PRN Reason: Shortness Of Breath Atorvastatin [Lipitor] 10 mg PO DAILY Discharge Medication List metFORMIN HCL [Glucophage] 500 mg PO BID 01/21/16 [History] sitaGLIPtin [Januvia] 100 mg PO DAILY 01/21/16 [History] Metoprolol Tartrate [Lopressor] 12.5 mg PO BID 09/17/18 [History] glipiZIDE [Glucotrol] 10 mg PO AC-BRKFST 09/17/18 [History] lisinopriL [Zestril] 10 mg PO DAILY 09/17/18 [History] Albuterol Sulfate [Ventolin HFA] 1 - 2 puff INHALATION RT-Q6H PRN 02/01/20 [History] Atorvastatin [Lipitor] 10 mg PO DAILY 02/01/20 [History] Budesonide [Pulmicort] 0.5 mg INHALATION RT-BID ml 02/04/20 [Rx] Ergocalciferol [Vitamin D2 (DRISDOL)] 50,000 unit PO Q7D cap 02/04/20 [Rx] HYDROcodone/APAP 5-325MG [[place] 5-325] 1 - 2 tab PO Q6HR PRN #48 tab 02/04/20 [Rx] Pantoprazole [Protonix] 40 mg PO AC-BRKFST tablet.dr 02/04/20 [Rx] Rivaroxaban [Xarelto] 10 mg PO DAILY #35 tab 02/04/20 [Rx] Sennosides [Senokot] 2 tab PO DAILY PRN #60 tablet 02/04/20 [Rx] Thiamine [Vitamin B-1] 100 mg PO BID-W/MEALS tab 02/04/20 [Rx] Follow up Appointment(s)/Referral(s): Maksim Malcolm DO [Doctor of Osteopathic Medicine] - 2 Weeks Justin Clifford MD [Primary Care Provider] - 1 Week (after discharge from [facility]) Activity/Diet/Wound Care/Special Instructions: Need orthopedics to order pain med and DVT prophylaxis orders and prescriptions for discharge to rehab Weightbearing as tolerated with walker. Leave dressing intact. Dressing may be removed by home care nurse or by patient in 10 days. May shower with dressing on. Continue hip dislocation precautions. Continue use of abductor pillow for 6 weeks while sleeping. Recommend use of compression stockings daily until follow up to help prevent swelling and blood clots. May remove at night before sleeping. Please follow-up with [facility] in 2 weeks and call with any questions or concerns, . Discharge Disposition: TRANSFER TO SNF/ECF
[2020-02-04 11:35] LABS: Glucose,Whole Blood 171 mg/dL (75-99)
[2020-02-04 12:08] VITALS: BP 101/60; PULSE 64; RESP 17; TEMP 99.4
[2020-02-04] MEDS ORDERED: POTASSIUM CHLORIDE ER 20 MEQ TAB.ER PO STA (13:45)
--- NOTE | 2020-02-04 13:48 | P.PN ---
Subjective Progress Note Date: 02/04/20 69-year-old pleasant female patient of Dr. Deandre Clifford. He she has underlying history of diabetes mellitus hyperlipidemia COPD, MO, diabetes polyneuropathy, admitted through the emergency room secondary to hip fracture that occurred 2 days ago. Apparently patient tripped and fell, at her friend's bonfire, patient denies any loss of consciousness, patient denies any lightheadedness or dizziness of facial pain, however there is abrasions in the face. Patient was seen in emergency room with x-ray showing acute impacted subcapital fracture right femur, chest x-ray x shows no acute disease, normal heart, no pleural effusion bony thorax intact EKG shows normal sinus rhythm, most likely old inferior MO, no acute changes old anteroseptal infarct, patient currently is a smoker, has chronic cough, patient denies any dyspnea and exertion, no chest pain on exertion. Patient denies any history of CVA in the past, no PE DVT or ulcerations the past. Patient is on Januvia and metformin and glipizide for diabetes control, blood sugars in the hospital ranges between 175-224, creatinine of 0.46 urinalysis shows 4+ glucose no leukocytes. Patient is scheduled to have right hip hemiarthroplasty on 02/02/2020, patient would be cleared with ASA anesthesia risk risk of class II, however uncontrolled tj hill, has COPD, RCR I (revised cardiac risk index) of 0, normal creatinine and no history of CVA, no history of CHF. Patient is asymptomatic with her CAD, she is cleared with average risk patient denies any previous anesthesia problems in the past denies any prolonged intubation or difficulty of intubation, patient has chronic cough with chronic sputum production, pro-calcitonin level to be obtained, empiric Levaquin to be started, nebulized treatments 02/01. Patient is undergoing a right hemiarthroplasty, for subcapital fracture of the right hip blood sugars are in the 130s to 230s, blood pressure 07/19/1959 T- max 99.4 urinalysis negative for WBC pro-calcitonin 0.05, continue nebulized tr eatments, can switch to oral antibiotic in the next 24 hours 02/02: Patient underwent right hemiarthroplasty yesterday with Dr. Malcolm. She is complaining of feeling tired. No chest pain or shortness of breath. She has been afebrile, heart rate 75, blood pressure 161/67, pulse ox 95% on room air. Blood sugars are running between 124 and 161. Urinalysis negative, no leukocytosis, pro-calcitonin negative. Levaquin will be discontinued as no source of infection found. 02/03: Patient is seen as a recheck today. Pain is currently controlled. She has been afebrile, heart rate 64, blood pressure 101/60, pulse ox 95% on room air. Repeat blood work reveals WBC 9.6, hemoglobin 9.5. Sodium 130, potassium 3.3, creatinine 0.51. Blood sugars running between 99 and 171. Potassium will be replaced prior to discharge. Medication reconciliation has been reviewed. Patient has been accepted at [facility] and will be discharged today once all arrangements are completed. Review Of Systems Constitutional: No fever, no chills, no night sweats. No weight change. No we akness, fatigue or lethargy. No daytime sleepiness. EENT: No headache. No blurred vision or double vision, no loss of vision. No loss of Hearing, no ringing in the ears, no dizziness. No nasal drainage or congestion. No epistaxis. No sore throat. Lungs: No shortness of breath, cough, no sputum production. No wheezing. Cardiovascular: No chest pain, no lower extremity edema. No palpitations. No paroxysmal nocturnal dyspnea. No orthopnea. No lightheadedness or dizziness. No syncopal episodes. Abdominal: No abdominal pain. No nausea, vomiting. No diarrhea. No constipation. No bloody or tarry stools.. No loss of appetite. Genitourinary: No dysuria, increased frequency, urgency. No urinary retention. Musculoskeletal: No myalgias. No muscle weakness, no gait dysfunction, no fr equent falls. No back pain. No neck pain. Integumentary: No wounds, no lesions. No rash or pruritus. No unusual bruising. No change in hair or nails. Neurologic: No aphasia. No facial droop. No change in mentation. No head injury. No headache. No paralysis. No paresthesia. Psychiatric: No depression. No anxiety. No mood swings. Endocrine: No abnormal blood sugars. No weight change. No excessive sweating or thirst. Physical Examination Gen: This is a 69-year-old female. Patient is resting in bed and appears to be comfortable and in no acute distress. HEENT: Head is atraumatic, normocephalic. Pupils equal, round. Sclerae is anicteric. NECK: Supple. No JVD. No lymphadenopathy. No thyromegaly. LUNGS: Clear to auscultation. No wheezes or rhonchi. No intercostal retractions. HEART: Regular rate and rhythm. No murmur. ABDOMEN: Soft. Bowel sounds are present. No masses. No tenderness. EXTREMITIES: No pedal edema. No calf tenderness. Dressing to right hip with no breakthrough bleeding, significant edema. NEUROLOGICAL: Patient is awake, alert and oriented x3. Cranial nerves 2 through 12 are grossly intact. Assessment and plan 1. Right impacted subcapital fracture right hip, status post right hemiarthroplasty on 02/02/2020. 2. Diabetes mellitus type 2, uncontrolled with hyperglycemia, with peripheral neuropathy on Januvia and metformin glipizide, Accu-Cheks before meals and at bedtime check A1c. Patient will resume home medications at discharge. 3. Hyperlipidemia, check for CPK to evaluate for rhabdomyolysis and determine safety of the medication 4. COPD with mild exacerbation, currently a smoker, started budesonide 0.5 mg twice a day, scheduled DuoNeb, check for pro-calcitonin, sputum culture no evidence of hypoxemia at this time, O2 when necessary will be provided incentive spirometry 5. Current tobacco use at one pack every 2 weeks, 6. Hoarse voice suspect chronic, patient needs investigation of chronic laryngitis as an outpatient to see ENT would need most likely laryngoscopy 7. Patient declined any tobacco cessation replacement program at this time 8. History of CAD, last cath was 2014, with 40% stenosis mid left anterior descending, 40% RCA, patient is currently asymptomatic, on we'll restart aspirin postop continue DIXON inhibitor beta rommel 9. DVT prophylaxis. Xarelto. 10. GI prophylaxis. Protonix. 11. Hypertensive cardiovascular disease on lisinopril 10 mg daily metoprolol 12.5 mg twice a day Discharge plan: [facility] in the [place]. COVID-19 infection not present. Impression and plan of care have been directed as dictated by the signing physician. Breann Damon nurse practitioner acting as scribe for signing physician. Objective - Vital Signs Vital signs: Vital Signs Temp 98.8 F 02/04/20 04:45 Pulse 68 08/11/20 07:15 Resp 16 02/04/20 04:45 BP 97/56 02/04/20 04:45 Pulse Ox 92 L 02/04/20 04:45 Intake & Output 02/03/20 02/04/20 02/04/20 18:59 06:59 18:59 Intake Total 480 960 Output Total 300 Balance 480 660 Intake: Intake, IV Titration 480 720 Amount Sodium Chloride 0.9% 1, 480 720 000 ml @ 60 mls/hr IV . [id number] [facility] Rx#:[id number] Oral 240 Output: Urine 300 Other: Voiding Method Bedpan Bedpan # Voids 2 1 - Labs CBC & Chem 7: 02/04/20 07:16 02/04/20 07:16 Labs: Abnormal Lab Results - Last 24 Hours (Table) 02/03/20 02/03/20 02/03/20 Range/Units 12:24 17:09 20:07 POC Glucose (mg/dL) 124 H 139 H 162 H (75-99) mg/dL 02/04/20 Range/Units 06:56 POC Glucose (mg/dL) 126 H (75-99) mg/dL
--- NOTE | 2020-02-06 15:28 | ECHOF ---
Referral Reason:LVF MEASUREMENTS -------- HEIGHT: 152.4 cm WEIGHT: 49.4 kg BP: 105/51 RVIDd: 2.8 cm (< 3.3) IVSd: 0.9 cm (0.6 - 1.1) LVIDd: 3.8 cm (3.9 - 5.3) LVPWd: 0.9 cm (0.6 - 1.1) IVSs: 1.5 cm LVIDs: 2.5 cm LVPWs: 1.2 cm LA Diam: 2.5 cm (2.7 - 3.8) Ao Diam: 3.4 cm (2.0 - 3.7) AV Cusp: 1.9 cm (1.5 - 2.6) MV EXCURSION: 10.152 mm (> 18.000) MV EF SLOPE: 43 mm/s (70 - 150) EPSS: 0.8 cm MV E Gian: 0.80 m/s MV DecT: 309 ms MV A Gian: 0.97 m/s MV E/A Ratio: 0.83 RAP: 5.00 mmHg RVSP: 37.00 mmHg FINDINGS -------- Sinus rhythm. This was a technically adequate study. The left ventricular size is normal. Left ventricular wall thickness is normal. Overall left vent ricular systolic function is normal with, an EF between 60 - 65 %. The right ventricle is normal in size. The left atrial size is normal. The right atrium is normal in size. Interatrial and interventricular septum intact. The aortic valve is trileaflet and appears structurally normal. The mitral valve is normal. Mild tricuspid regurgitation present. There is mild pulmonary hypertension. The right ventricular systolic pressure, as measured by Doppler, is 37.00mmHg. The pulmonic valve was not well visualized. The aortic root size is normal. Normal inferior vena cava with normal inspiratory collapse consistent with estimated right atrial pre ssure of 5 mmHg. There is no pericardial effusion. CONCLUSIONS -------- 1. The left ventricular size is normal. 2. Left ventricular wall thickness is normal. 3. Overall left ventricular systolic function is normal with, an EF between 60 - 65 %. 4. Mild tricuspid regurgitation present. 5. There is mild pulmonary hypertension. 6. The right ventricular systolic pressure, as measured by Doppler, is 37.00mmHg. 7. There is no pericardial effusion. BOAT HAND: Vielka Stewart RDCS
== END 2020-02-04 15:05 | DRG 470 ==
LOC: EC 22:42 → 5NMEDONC 02-01 01:50
PROVIDERS: ADMIT Orthopaedic Surgery; ATTEND Orthopaedic Surgery
PROC: 0SRR0JA Replacement of Right Hip Joint, Femoral Surface with Synthetic Substitute, Uncemented, Open Approach (ICD-10-PCS; principal; 2020-02-02 12:00)
DX: S72.011A Unspecified intracapsular fracture of right femur, initial encounter for closed fracture (principal); J44.1 Chronic obstructive pulmonary disease with (acute) exacerbation; E78.5 Hyperlipidemia, unspecified; F17.200 Nicotine dependence, unspecified, uncomplicated; J44.9 Chronic obstructive pulmonary disease, unspecified; I25.10 Atherosclerotic heart disease of native coronary artery without angina pectoris; E11.42 Type 2 diabetes mellitus with diabetic polyneuropathy; I11.9 Hypertensive heart disease without heart failure; E11.65 Type 2 diabetes mellitus with hyperglycemia; W01.0XXA Fall on same level from slipping, tripping and stumbling without subsequent striking against object, initial encounter; Z11.59 Encounter for screening for other viral diseases; Z98.51 Tubal ligation status; Z90.721 Acquired absence of ovaries, unilateral; Z98.890 Other specified postprocedural states; Z79.84 Long term (current) use of oral hypoglycemic drugs; Z79.899 Other long term (current) drug therapy; I25.2 Old myocardial infarction; Z79.4 Long term (current) use of insulin; Z80.3 Family history of malignant neoplasm of breast; Z82.49 Family history of ischemic heart disease and other diseases of the circulatory system; Z83.3 Family history of diabetes mellitus
CPT/HCPCS: 36415; 70450; 71045; 73501; 73502; 80048; 80053; 80061; 81003; 84145; 84443; 85025; 85027; 85610; 85730; 86850; 86900; 86901; 87635; 88305; 88311; 93005; 93306; 94640; 96361; 96372; 96374; 96375; 99285

== ENCOUNTER 2021-05-04 12:27 | Emergency (ER) | payer MEDICARE, OTHER ==
[2021-05-04 13:11] VITALS: BP 173/65; PULSE 80; RESP 16; TEMP 98.4
--- NOTE | 2021-05-04 13:44 | XR ---
EXAMINATION TYPE: XR Hip Complete 2 views RT, XR knee complete 3 views RT DATE OF EXAM: 05/04/2021 Comparison: 02/02/2020 Clinical History: 71-year-old female pain Findings: Right hip: Right hip hemiarthroplasty is demonstrated. No subluxation or dislocation. Femoral stem component is well seated without progressive fracture. We do note some axial thinning of [place] acetabular articul ar cartilage. Degenerative changes of the pubic symphysis. Osteopenia. Enthesopathy at the ischial tu berosity. Right knee: Vascular calcifications. Generalized muscle atrophy. Meniscal chondrocalcinosis. Moderate joint effus ion. Anterior soft tissue swelling. Osteopenia. No acute fracture, subluxation, dislocation seen. Impression: 1. Right hip: Uncomplicated right hip hemiarthroplasty though with degenerative thinning of [place] ac etabular articular cartilage. Osteitis pubis. No acute osseous abnormality seen. 2. Right knee: Anterior soft tissue swelling. Moderate knee joint effusion. Osteopenia. No acute osse ous abnormality seen. Given meniscal chondrocalcinosis and the joint effusion,, CPPD is a differentia l consideration. MRI if symptoms persist.
--- NOTE | 2021-05-04 16:19 | US ---
EXAMINATION TYPE: US venous doppler duplex LE RT DATE OF EXAM: 05/04/2021 4:14 PM COMPARISON: NONE CLINICAL HISTORY: 71-year-old female Right leg pain/swelling. Pt states right leg SIDE PERFORMED: Right TECHNIQUE: The lower extremity deep venous system is examined utilizing real time linear array sonog tersee with graded compression, doppler sonography and color-flow sonography. FINDINGS: VESSELS IMAGED: Common Femoral Vein Deep Femoral Vein Greater Saphenous Vein * Femoral Vein Popliteal Vein Small Saphenous Vein * Proximal Calf Veins (* superficial vessels) Right Leg: Negative for DVT. There is a small Darnell's cyst right pop fossa = 3.6 x 1.6 x 2.1 cm IMPRESSION: 1. No evidence for DVT within the right lower extremity imaged from the groin to the upper calf. 2. Small right-sided Darnell cyst measuring 3.6 cm.
[2021-05-04] MEDS ORDERED: predniSONE 50 MG TAB PO STA (16:33)
[2021-05-04] MEDS ORDERED: CEPHALEXIN 500MG STARTER PACK 4 CAP BTL PO STA (16:33)
--- NOTE | 2021-05-04 16:35 | ED ---
Extremity Problem HPI - General Chief complaint: Extremity Problem,Nontraumatic Stated complaint: knee & hip pain Time Seen by Provider: 05/04/21 15:12 Source: patient Mode of arrival: wheelchair Limitations: no limitations - History of Present Illness Initial comments: 71-year-old female patient presents the emergency department today for evaluation of right hip pain and right knee pain. Patient states she feels like her knee is swollen. Reports some redness over her right lower leg. States she has been taking Tylenol. She is currently pain-free but is concerned due to her symptoms. She denies any fever or chills. Denies any injury. Denies nausea, vomiting, dizziness, weakness. She has had right hip surgery previously for fracture. - Related Data Home Medications Medication Instructions Recorded Confirmed metFORMIN HCL [Glucophage] 500 mg PO BID 01/21/16 02/01/20 sitaGLIPtin [Januvia] 100 mg PO DAILY 01/21/16 02/01/20 Metoprolol Tartrate [Lopressor] 12.5 mg PO BID 09/17/18 02/01/20 glipiZIDE [Glucotrol] 10 mg PO AC-BRKFST 09/17/18 02/01/20 lisinopriL [Zestril] 10 mg PO DAILY 09/17/18 02/01/20 Albuterol Sulfate [Ventolin HFA] 1 - 2 puff INHALATION RT-Q6H PRN 02/01/20 02/01/20 Atorvastatin [Lipitor] 10 mg PO DAILY 02/01/20 02/01/20 Previous Rx's Medication Instructions Recorded Budesonide [Pulmicort] 0.5 mg INHALATION RT-BID ml 02/04/20 Ergocalciferol [Vitamin D2 50,000 unit PO Q7D cap 02/04/20 (DRISDOL)] HYDROcodone/APAP 5-325MG [[place] 1 - 2 tab PO Q6HR PRN #48 tab 02/04/20 5-325] Pantoprazole [Protonix] 40 mg PO AC-BRKFST tablet.dr 02/04/20 Rivaroxaban [Xarelto] 10 mg PO DAILY #35 tab 02/04/20 Sennosides [Senokot] 2 tab PO DAILY PRN #60 tablet 02/04/20 Thiamine [Vitamin B-1] 100 mg PO BID-W/MEALS tab 02/04/20 Cephalexin [Keflex] 500 mg PO Q6HR #40 cap 05/04/21 predniSONE 50 mg PO DAILY #5 tablet 05/04/21 Allergies Allergy/AdvReac Type Severity Reaction Status Date / Time No Known Allergies Allergy Verified 05/04/21 13:11 Review of Systems ROS Statement: Those systems with pertinent positive or pertinent negative responses have been documented in the HPI. ROS Other: All systems not noted in ROS Statement are negative. Past Medical History Past Medical History: Diabetes Mellitus, Hyperlipidemia, Hypertension, Myocardial Infarction (CT) Additional Past Medical History / Comment(s): PERIPHERALLY NEUROPATHY,. SINUS ALLERGIES. [place], getting hearing aides. Last Myocardial Infarction Date:: 06-14-15 History of Any Multi-Drug Resistant Organisms: None Reported Past Surgical History: Adenoidectomy, Heart Catheterization, Tonsillectomy, Tubal Ligation Additional Past Surgical History / Comment(s): Left Oopherectomy, kidney stent. COLONOSCOPY Past Anesthesia/Blood Transfusion Reactions: No Reported Reaction Past Psychological History: No Psychological Hx Reported Smoking Status: Current every day smoker Past Alcohol Use History: Daily - Past Family History Brother(s) Family Medical History: Diabetes Mellitus Sister(s) Family Medical History: Cancer (Breast cancer) Daughter(s) Family Medical History: No Reported History Son(s) Family Medical History: No Reported History Mother Family Medical History: Pneumonia Father Family Medical History: GI Bleed, Myocardial Infarction (CT) Additional Family Medical History / Comment(s): PATIENT AGE 12 WHEN FATHER -- HEART ATTACK AND BLEEDING ULCERS, ALCOHOLIC General Exam Limitations: no limitations General appearance: alert, in no apparent distress, other (This is a well- developed, well-nourished, nontoxic-appearing adult female patient in no acute distress.) ENT exam: Present: normal exam, normal oropharynx, mucous membranes moist Respiratory exam: Present: normal lung sounds bilaterally. Absent: respiratory distress, wheezes, rales, rhonchi, stridor Cardiovascular Exam: Present: regular rate, normal rhythm, normal heart sounds. Absent: systolic murmur, diastolic murmur, rubs, gallop, clicks Extremities exam: Present: full ROM, tenderness (Right posterior knee), normal capillary refill, other (There is mild soft tissue swelling surrounding the right posterior knee. Mild swelling noted to the leg generally. There is faint erythema noted over the [place]. Pedal and posttibial pulses are 2+.). Absent: pedal edema, joint swelling, calf tenderness Neurological exam: Present: alert, oriented X3, CN II-XII intact, normal gait Psychiatric exam: Present: normal affect, normal mood Skin exam: Present: warm, dry, intact, normal color. Absent: rash Course Vital Signs 05/04/21 13:06 Temperature 98.4 F Pulse Rate 80 Respiratory 16 Rate Blood Pressure 173/65 O2 Sat by Pulse 97 Oximetry Medical Decision Making - Medical Decision Making 71-year-old female patient presented to the emergency department today for evaluation of right hip and right knee pain. Physical examination did reveal mild soft tissue swelling surrounding the knee. There is faint erythema noted over the gay[place]. She is afebrile, vital signs. She had negative x-ray of the right hip. Right knee x-ray did reveal osteoarthritis, knee joint effusion, possible pseudogout. Ultrasound of the right leg was obtained and was negative for DVT. Did show a small right posterior Darnell cyst. I did discuss findings results with the patient. We will try a course of steroids. She'll be discharged follow-up with the child specialist for further evaluation as soon as possible. Return parameters were discussed in detail. She verbalizes understanding and agrees with this plan. Case discussed with my attending Dr. Padron. - Radiology Data Radiology results: report reviewed, image reviewed Ultrasound of the right lower extremity is obtained. Report was reviewed in its entirety. Impression by Dr. Bahena shows no evidence for DVT within the right lower extremity image from the groin to the upper calf. Small right-sided Darnell cyst measuring 3.6 cm. X-rays of the right hip and right knee are obtained. Report is reviewed in its entirety. Impression by Dr. Bahena shows uncomplicated right hip hemiarthroplasty with degenerative thinning of [place] acetabular articular cartilage. Osteitis pubis. No acute osseous abnormalities seen. Right knee shows anterior soft tissue swelling. Moderate knee joint effusion. Osteopenia. No acute osseous abnormalities seen. Given meniscal chondrocalcinosis in the joint effusion CPPD is a differential consideration. Disposition Clinical Impression: Effusion, right knee Disposition: HOME SELF-CARE Condition: Good Instructions (If sedation given, give patient instructions): Osteoarthritis (ED), Swollen Knee Joint (ED) Additional Instructions: Take medications as directed. Follow-up with child specialist for further evaluation as soon as possible. Return to the emergency department for any new, worsening, or concerning symptoms. Prescriptions: Cephalexin [Keflex] 500 mg PO Q6HR #40 cap predniSONE 50 mg PO DAILY #5 tablet Is patient prescribed a controlled substance at d/c from ED?: No Referrals: Justin Clifford MD [Primary Care Provider] - 1-2 days Maksim Malcolm DO [Doctor of Osteopathic Medicine] - 1-2 days Time of Disposition: 16:35
== END 2021-05-04 17:13 | disposition home or self-care (01) ==
LOC: EC 12:27
DX: M25.461 Effusion, right knee (principal); E11.9 Type 2 diabetes mellitus without complications; I10 Essential (primary) hypertension; I25.2 Old myocardial infarction; E78.5 Hyperlipidemia, unspecified; F17.200 Nicotine dependence, unspecified, uncomplicated; Z79.84 Long term (current) use of oral hypoglycemic drugs; Z79.899 Other long term (current) drug therapy
CPT/HCPCS: 73502; 73562; 93971; 99284; J7512

== ENCOUNTER → 2022-03-25 | Outpatient (CLI) | payer MEDICARE, OTHER ==
--- NOTE | 2022-03-26 05:17 | MR ---
EXAMINATION TYPE: MR brain wo/w con DATE OF EXAM: 03/25/2022 COMPARISON: [facility] HISTORY: Headache, hallucinations. CONTRAST: Standard multiplanar, multisequence MRI departmental protocol images were obtained without contrast a nd with 4.5 mL intravenous Gadavist gadolinium contrast. There is cerebral cortical atrophy. There is no mass effect nor midline shift. No evidence of intracr anial hemorrhage. There is some patchy coalescent areas of increased signal in the periventricular wh ite matter that measure up to 1 cm in thickness. This is more noticeable in the right parietal lobe c entrum semiovale. There is patchy increased signal in the shashank bilaterally on the T2 and FLAIR images . Diffusion images show no sign of an acute infarct. Cerebellum is intact. There is some thinning of the corpus callosum. No evidence of orbital mass. Sella turcica appears normal. Contrast images show no pathologic enhancement. There is normal enhancement of the venous sinuses. IMPRESSION: White matter signal changes involving the cerebral hemispheres and brainstem consistent with microvas cular ischemia or demyelinating disease. There is 1 cm area of low signal in the right internal capsu le that could be old hemorrhagic infarct. Pontine abnormality measures 1.7 cm. Cerebral atrophy.
== END | disposition home or self-care (01) ==
LOC: RADMRIMAIN 16:15
PROVIDERS: ATTEND Family Medicine
DX: R51.9 Headache, unspecified (principal); R44.3 Hallucinations, unspecified
CPT/HCPCS: 70553; A9585

== ENCOUNTER 2022-07-02 13:12 | Observation (INO) | payer MEDICARE, OTHER ==
--- NOTE | 2022-07-02 13:44 | ED ---
General Adult HPI - General Chief complaint: Recheck/Abnormal Lab/Rx Stated complaint: hypoglycemia Time Seen by Provider: 07/02/22 13:12 Source: patient, EMS, RN notes reviewed Mode of arrival: ambulatory Limitations: no limitations - History of Present Illness Initial comments: Patient is a pleasant 72-year-old female presenting to the emergency Department with hypoglycemic episode. Patient states she did not eat much today. Patient did take her diabetic medication as normal. Patient was found with low blood sugar. EMS did provide glucose with resolution of symptoms. Patient states she feels normal at this time and has no complaints. Patient denies any injury. - Related Data Home Medications Medication Instructions Recorded Confirmed metFORMIN HCL [Glucophage] 500 mg PO BID 01/21/16 07/02/22 sitaGLIPtin [Januvia] 100 mg PO DAILY 01/21/16 07/02/22 Metoprolol Tartrate [Lopressor] 12.5 mg PO BID 09/17/18 07/02/22 glipiZIDE [Glucotrol] 10 mg PO AC-BRKFST 09/17/18 07/02/22 lisinopriL [Zestril] 10 mg PO DAILY 09/17/18 07/02/22 Albuterol Sulfate [Ventolin HFA] 1 - 2 puff INHALATION RT-Q6H PRN 02/01/20 07/02/22 Atorvastatin [Lipitor] 10 mg PO DAILY 02/01/20 07/02/22 DULoxetine HCL [Cymbalta] 20 mg PO DAILY 07/02/22 07/02/22 Previous Rx's Medication Instructions Recorded Pantoprazole [Protonix] 40 mg PO AC-BRKFST tablet. 02/04/20 Allergies Allergy/AdvReac Type Severity Reaction Status Date / Time No Known Allergies Allergy Verified 07/02/22 16:40 Review of Systems ROS Statement: Those systems with pertinent positive or pertinent negative responses have been documented in the HPI. ROS Other: All systems not noted in ROS Statement are negative. Constitutional: Denies: fever Eyes: Denies: eye pain ENT: Denies: ear pain Respiratory: Denies: cough Cardiovascular: Denies: chest pain Endocrine: Denies: fatigue Gastrointestinal: Denies: abdominal pain Genitourinary: Denies: urgency Musculoskeletal: Denies: back pain Skin: Denies: rash Neurological: Denies: weakness Past Medical History Past Medical History: Diabetes Mellitus, Hyperlipidemia, Hypertension, Myocardial Infarction ([place]) Additional Past Medical History / Comment(s): PERIPHERALLY NEUROPATHY,. SINUS ALLERGIES. [place], getting hearing aides. Last Myocardial Infarction Date:: 06-14-15 History of Any Multi-Drug Resistant Organisms: None Reported Past Surgical History: Adenoidectomy, Heart Catheterization, Tonsillectomy, Tubal Ligation Additional Past Surgical History / Comment(s): Left Oopherectomy, kidney stent. COLONOSCOPY Past Anesthesia/Blood Transfusion Reactions: No Reported Reaction Past Psychological History: No Psychological Hx Reported Smoking Status: Current every day smoker Past Alcohol Use History: Abuse, Daily, Heavy Past Drug Use History: None Reported - Past Family History Brother(s) Family Medical History: Diabetes Mellitus Sister(s) Family Medical History: Cancer (Breast cancer) Daughter(s) Family Medical History: No Reported History Son(s) Family Medical History: No Reported History Mother Family Medical History: Pneumonia Father Family Medical History: GI Bleed, Myocardial Infarction ([place]) Additional Family Medical History / Comment(s): PATIENT AGE 12 WHEN FATHER -- HEART ATTACK AND BLEEDING ULCERS, ALCOHOLIC General Exam Limitations: no limitations General appearance: alert, in no apparent distress Head exam: Present: atraumatic Eye exam: Present: normal appearance, PERRL, EOMI ENT exam: Present: normal oropharynx Neck exam: Present: normal inspection. Absent: tenderness, meningismus Respiratory exam: Present: normal lung sounds bilaterally Cardiovascular Exam: Present: regular rate, normal rhythm GI/Abdominal exam: Present: soft. Absent: tenderness Extremities exam: Present: normal inspection, full ROM. Absent: tenderness Neurological exam: Present: alert, oriented X3, CN II-XII intact. Absent: motor sensory deficit Expanded Motor strength exam: RUE: 5, LUE: 5, RLE: 5, LLE: 5 Eye Response: (4) open spontaneously Motor Response: (6) obeys commands Verbal Response: (5) oriented Psychiatric exam: Present: normal affect, normal mood Skin exam: Present: normal color Course Vital Signs 07/02/22 13:13 Temperature 97.1 F L Pulse Rate 55 L Respiratory 16 Rate Blood Pressure 159/54 O2 Sat by Pulse 100 Oximetry Medical Decision Making - Medical Decision Making Was pt. sent in by a medical professional or institution (OCTAVIA Moses, BIOFU[employer]S OPERATIONS MANAGER, urgent care, hospital, or correction...) When possible be specific @ -No Did you speak to anyone other than the patient for history (EMS, parent, family, police, friend...)? What history was obtained from this source @ -EMS help provide history. Patient does not recall the episode well. Did you review nursing and triage notes (agree or disagree)? Why? @ -I reviewed and agree with nursing and triage notes Were old charts reviewed (outside hosp., previous admission, EMS record, old EKG, old radiological studies, urgent care reports/EKG's, correction records)? Report findings @ -No old charts were reviewed Differential Diagnosis (chest pain, altered mental status, abdominal pain women, abdominal pain men, vaginal bleeding, weakness, fever, dyspnea, syncope, headache, dizziness, GI bleed, back pain, seizure, CVA, palpatations, mental health)? @ -Differential Syncope: Valvular disease, hypertrophic cardiomyopathy, pulmonary embolism, tamponade, tachycardia, bradycardia, MS, hypovolemia, hemorrhage, dissection, anemia, intracranial hemorrhage, seizure, hypoglycemia, carbon monoxide poisoning, this is not meant to be an all-inclusive list. EKG interpreted by me (3pts min.). @ -As above X-rays interpreted by me (1pt min.). @ -None done CT interpreted by me (1pt min.). @ -None done U/S interpreted by me (1pt. min.). @ -None done What testing was considered but not performed or refused? (CT, X-rays, U/S, labs)? Why? @ -Considered imaging however patient had a reason for her unresponsiveness that has resolved appropriately with appropriate treatment What meds were considered but not given or refused? Why? @ -None Did you discuss the management of the patient with other professionals (professionals i.e. OCTAVIA Moses, [employer] OPERATIONS MANAGER, lab, RT, psych nurse, medical social worker, pile driver operator helper, teacher, traffic division commanding officer, medical case manager)? Give summary @ -Case was discussed with Dr. Dudley, who will admit covering Dr. Clifford, time Was smoking cessation discussed for >3mins.? @ -No Was critical care preformed (if so, how long)? @ -No Were there social determinants of health that impacted care today? How? (Homelessness, low income, unemployed, alcoholism, drug addiction, tra nsportation, low edu. Level, literacy, decrease access to med. care, custodial, rehab)? @ -No Was there de-escalation of care discussed even if they declined (Discuss DNR or withdrawal of care, Hospice)? DNR status @ -No What co-morbidities impacted this encounter? (DM, HTN, Smoking, COPD, CAD, Cancer, CVA, ARF, Chemo, Hep., AIDS, mental health diagnosis, sleep apnea, morbid obesity)? @ -None Was patient admitted / discharged? Hospital course, mention meds given and route, prescriptions, significant lab abnormalities, going to OR and other pertinent info. @ -Patient reevaluated and resting comfortably in bed. Patient states overall she does not feel well and will prefer to be kept in hospital overnight. We can further monitor blood sugar. Patient will also need additional fluids secondary to hyponatremia Undiagnosed new problem with uncertain prognosis? @ -No Drug Therapy requiring intensive monitoring for toxicity (Heparin, Nitro, Insulin, Cardizem)? @ -No Were any procedures done? @ -No Diagnosis/symptom? @ -Hypoglycemia, hyponatremia Acute, or Chronic, or Acute on Chronic? @ -Acute, acute Uncomplicated (without systemic symptoms) or Complicated (systemic symptoms)? @ -Uncomplicated Side effects of treatment? @ -No Exacerbation, Progression, or Severe Exacerbation? @ -No Poses a threat to life or bodily function? How? (Chest pain, [place], MS, pneumonia, PE, COPD, DKA, ARF, appy, cholecystitis, CVA, Diverticulitis, Homicidal, Suicidal, threat to staff... and all critical care pts) @ -Hypoglycemia and hyponatremia both pose potential threat to life in mental status - Lab Data Result diagrams: 07/02/22 14:13 07/02/22 14:13 Lab Results 07/02/22 07/02/22 07/02/22 Range/Units 14:13 14:13 14:34 WBC 3.8 (3.8-10.6) k/uL RBC 3.73 L (3.80-5.40) m/uL Hgb 12.0 (11.4-16.0) gm/dL Hct 35.6 (34.0-46.0) % MCV 95.3 (80.0-100.0) fL MCH 32.3 (25.0-35.0) pg MCHC 33.9 (31.0-37.0) g/dL RDW 13.9 (11.5-15.5) % Plt Count 185 (150-450) k/uL MPV 8.0 Neutrophils % 65 % Lymphocytes % 22 % Monocytes % 9 % Eosinophils % 1 % Basophils % 1 % Neutrophils # 2.5 (1.3-7.7) k/uL Lymphocytes # 0.8 L (1.0-4.8) k/uL Monocytes # 0.4 (0-1.0) k/uL Eosinophils # 0.0 (0-0.7) k/uL Basophils # 0.0 (0-0.2) k/uL Sodium 127 L (137-145) mmol/L Potassium 5.2 H (3.5-5.1) mmol/L Chloride 96 L (98-107) mmol/L Carbon Dioxide 26 (22-30) mmol/L Anion Gap 5 mmol/L BUN 12 (7-17) mg/dL Creatinine 0.63 (0.52-1.04) mg/dL Est GFR (CKD-EPI)AfAm >90 (>60 ml/min/1.73 sqM) Est GFR (CKD-EPI)NonAf 90 (>60 ml/min/1.73 sqM) Glucose 167 H (74-99) mg/dL POC Glucose (mg/dL) 100 (70-110) mg/dL POC Glu Polyethylene Bag Machine Operator ID Glenis Jaimes Calcium 8.5 (8.4-10.2) mg/dL Total Bilirubin 0.5 (0.2-1.3) mg/dL AST 35 (14-36) U/L ALT 24 (4-34) U/L Alkaline Phosphatase 48 (38-126) U/L Total Protein 6.6 (6.3-8.2) g/dL Albumin 4.0 (3.5-5.0) g/dL Disposition Clinical Impression: Hyponatremia, Hypoglycemia Disposition: ADMITTED IP TO THIS [facility] Is patient prescribed a controlled substance at d/c from ED?: No Referrals: Justin Clifford MD [Primary Care Provider] - 1-2 days Time of Disposition: 16:53
[2022-07-02 14:24] LABS: Basophils % (A) 1 %; Eosinophils % (A) 1 %; HCT 35.6 % (34.0-46.0); Lymphocytes # (A) 0.8 k/uL (1.0-4.8); Lymphocytes % (A) 22 %; MCH 32.3 pg (25.0-35.0); MCHC 33.9 g/dL (31.0-37.0); MCV 95.3 fL (80.0-100.0); Monocytes # (A) 0.4 k/uL (0-1.0); Monocytes % (A) 9 %; Neutrophils # (A) 2.5 k/uL (1.3-7.7); Neutrophils % (A) 65 %; Platelet Count 185 k/uL (150-450); RBC 3.73 m/uL (3.80-5.40); RDW 13.9 % (11.5-15.5); WBC 3.8 k/uL (3.8-10.6)
[2022-07-02 14:36] LABS: Glucose,Whole Blood 100 mg/dL (70-110)
[2022-07-02 14:47] LABS: ALT 24 U/L (4-34); AST 35 U/L (14-36); African American GFR (CKD) >90 (>60 ml/min/1.73 sqM); Alkaline Phosphatase 48 U/L (38-126); Anion Gap 5 mmol/L; Blood Urea Nitrogen 12 mg/dL (7-17); Calcium 8.5 mg/dL (8.4-10.2); Carbon Dioxide 26 mmol/L (22-30); Chloride 96 mmol/L (98-107); Glucose 167 mg/dL (74-99); Non-African American GFR(CKD) 90 (>60 ml/min/1.73 sqM); Potassium 5.2 mmol/L (3.5-5.1); Sodium 127 mmol/L (137-145); Total Bilirubin 0.5 mg/dL (0.2-1.3); Total Protein 6.6 g/dL (6.3-8.2)
[2022-07-02] MEDS ORDERED: NALOXONE 0.4 MG/ML 1 ML VIAL IV PRN (16:53)
[2022-07-02 17:07] LABS: Glucose,Whole Blood 66 mg/dL (70-110)
[2022-07-02 17:50] LABS: Glucose,Whole Blood 95 mg/dL (70-110)
[2022-07-02] MEDS: SODIUM CHLORIDE 0.9% 1,000 ML IV SCH (19:50)
[2022-07-02] MEDS: metFORMIN 500 MG TAB PO SCH (21:14)
[2022-07-02] MEDS: METOPROLOL TARTRATE 12.5 MG TAB PO SCH (21:14)
[2022-07-02 21:15] LABS: Glucose,Whole Blood 221 mg/dL (70-110)
[2022-07-03 02:53] LABS: Glucose,Whole Blood 88 mg/dL (70-110)
[2022-07-03 05:43] LABS: Glucose,Whole Blood 76 mg/dL (70-110)
[2022-07-03] MEDS: SODIUM CHLORIDE 0.9% 1,000 ML IV SCH ×2 (06:31→21:55)
[2022-07-03] MEDS: PANTOPRAZOLE 40 MG TABLET PO SCH (06:31)
[2022-07-03 06:32] LABS: Glucose,Whole Blood 118 mg/dL (70-110)
[2022-07-03] MEDS ORDERED: glipiZIDE 10 MG TAB PO SCH (07:30)
[2022-07-03] MEDS: lisinopriL 10 MG TAB PO SCH (08:50)
[2022-07-03] MEDS: ATORVASTATIN 10 MG TAB PO SCH (08:50)
[2022-07-03] MEDS: metFORMIN 500 MG TAB PO SCH ×2 (08:50→20:58)
[2022-07-03] MEDS: DULoxetine HCL 20 MG CAPSULE.DR PO SCH (08:50)
[2022-07-03] MEDS: METOPROLOL TARTRATE 12.5 MG TAB PO SCH ×2 (08:50→20:58)
--- NOTE | 2022-07-03 08:59 | P.HPIM ---
History of Present Illness H&P Date: 07/02/22 Chief Complaint: Altered mental status/hypoglycemia 72-year-old female presenting to the emergency Department with hypoglycemic episode. Patient was found on the floor of her apartment by somewhat. Patient states she did not eat much today. Patient did take her diabetic medication as normal. When EMS arrived patient was found with low blood sugar, 32. EMS provided 1 amp of D50 and sugars came up to 102 with resolution of symptoms. Patient states she feels normal at this time and has no complaints. Patient denies any injury. Workup completed in ED reveals a WBC of 3.8, hemoglobin of 12 and platelet count of 185, sodium 127, potassium 5.2, BUN/creatinine of 12/0.6 to the blood glucose 167 Patient is being admitted for observation for hypoglycemia and hyponatremia which both can contribute to mental status change Review of Systems REVIEW OF SYSTEMS: CONSTITUTIONAL: No fever, no malaise, no fatigue. HEENT: No recent visual problems or hearing problems. Denied any sore throat. CARDIOVASCULAR: No chest pain, orthopnea, PND, no palpitations, no syncope. PULMONARY: No shortness of breath, no cough, no hemoptysis. GASTROINTESTINAL: No diarrhea, no nausea, no vomiting, no abdominal pain. NEUROLOGICAL: No headaches, no weakness, no numbness. HEMATOLOGICAL: Denies any bleeding or petechiae. GENITOURINARY: Denies any burning micturition, frequency, or urgency. MUSCULOSKELETAL/RHEUMATOLOGICAL: Denies any joint pain, swelling, or any muscle pain. ENDOCRINE: Denies any polyuria or polydipsia. The rest of the 14-point review of systems is negative. Past Medical History Past Medical History: Diabetes Mellitus, Hyperlipidemia, Hypertension, Myoca rdial Infarction ([place]) Additional Past Medical History / Comment(s): PERIPHERALLY NEUROPATHY,. SINUS ALLERGIES. [place], getting hearing aides. Last Myocardial Infarction Date:: 06-14-15 History of Any Multi-Drug Resistant Organisms: None Reported Past Surgical History: Adenoidectomy, Heart Catheterization, Tonsillectomy, Tubal Ligation Additional Past Surgical History / Comment(s): Left Oopherectomy, kidney stent. COLONOSCOPY Past Anesthesia/Blood Transfusion Reactions: No Reported Reaction Past Psychological History: No Psychological Hx Reported Smoking Status: Current every day smoker Past Alcohol Use History: Abuse, Daily, Heavy Past Drug Use History: None Reported - Past Family History Brother(s) Family Medical History: Diabetes Mellitus Sister(s) Family Medical History: Cancer (Breast cancer) Daughter(s) Family Medical History: No Reported History Son(s) Family Medical History: No Reported History Mother Family Medical History: Pneumonia Father Family Medical History: GI Bleed, Myocardial Infarction ([place]) Additional Family Medical History / Comment(s): PATIENT AGE 12 WHEN FATHER -- HEART ATTACK AND BLEEDING ULCERS, ALCOHOLIC Medications and Allergies Home Medications Medication Instructions Recorded Confirmed Type metFORMIN HCL [Glucophage] 500 mg PO BID 01/21/16 07/02/22 History sitaGLIPtin [Januvia] 100 mg PO DAILY 01/21/16 07/02/22 History Metoprolol Tartrate [Lopressor] 12.5 mg PO BID 09/17/18 07/02/22 History glipiZIDE [Glucotrol] 10 mg PO AC-BRKFST 09/17/18 07/02/22 History lisinopriL [Zestril] 10 mg PO DAILY 09/17/18 07/02/22 History Albuterol Sulfate [Ventolin HFA] 1 - 2 puff INHALATION RT-Q6H PRN 02/01/2001/15 History Atorvastatin [Lipitor] 10 mg PO DAILY 02/01/20 07/02/22 History Pantoprazole [Protonix] 40 mg PO AC-BRKFST tablet. 02/04/20 07/02/22 Rx DULoxetine HCL [Cymbalta] 20 mg PO DAILY 07/02/22 07/02/22 History Allergies Allergy/AdvReac Type Severity Reaction Status Date / Time No Known Allergies Allergy Verified 07/02/22 16:40 Physical Exam Vitals: Vital Signs Temp Pulse Resp BP Pulse Ox 07/02/22 17:05 62 18 126/89 98 07/02/22 13:13 97.1 F L 55 L 16 159/54 100 Intake and Output 07/02/22 07/02/22 07/02/22 06:59 14:59 22:59 Other: Weight 49.895 kg PHYSICAL EXAMINATION: GENERAL: The patient is alert and oriented x3, not in any acute distress. Well developed, well nourished. HEENT: Pupils are round and equally reacting to light. EOMI. No scleral icterus. No conjunctival pallor. Normocephalic, atraumatic. No pharyngeal erythema. No thyromegaly. CARDIOVASCULAR: S1 and S2 present. No murmurs, rubs, or gallops. PULMONARY: Chest is clear to auscultation, no wheezing or crackles. ABDOMEN: Soft, nontender, nondistended, normoactive bowel sounds. No palpable organomegaly. MUSCULOSKELETAL: No joint swelling or deformity. EXTREMITIES: No cyanosis, clubbing, or pedal edema. NEUROLOGICAL: Gross neurological examination did not reveal any focal deficits. SKIN: No rashes. Results CBC & Chem 7: 07/02/22 14:13 07/02/22 14:13 Labs: Abnormal Lab Results - Last 24 Hours (Table) 07/02/22 07/02/22 07/02/22 Range/Units 14:13 14:13 17:01 RBC 3.73 L (3.80-5.40) m/uL Lymphocytes # 0.8 L (1.0-4.8) k/uL Sodium 127 L (137-145) mmol/L Potassium 5.2 H (3.5-5.1) mmol/L Chloride 96 L (98-107) mmol/L Glucose 167 H (74-99) mg/dL POC Glucose (mg/dL) 66 L (70-110) mg/dL Assessment and Plan Assessment: 1. Critical hypoglycemia; likely related to poor oral intake- - Patient was found on the floor of her apartment by family members and EMS was called; initial blood sugar upon arrival was found to be 32; patient received 1 amp of D50 with improvement blood sugar of 106 - We will hold off on oral hypoglycemic agents and admitted for observation; monitor Accu-Cheks every before meals and at bedtime with insulin sliding scale as needed 2. Hyponatremia; patient has been placed on IV fluid hydration in form of normal saline at a rate of 75 mL an hour; we will monitor electrolytes and make further recommendations 2. Diabetes mellitus type 2; patient takes metformin 500 mg twice a day, Januvia 100 mg daily and Glucotrol 10 mg daily - Plan is to hold off home diabetic regimen until blood glucose improves and oral intake improves; we will monitor Accu-Cheks before meals and at bedtime with low intensity sliding scale 3. Hypertension; metoprolol 12.5 mg twice a day, lisinopril 10 mg daily 4. Hyperlipidemia; Lipitor 10 mg daily 5. Asthma; not in exacerbation; albuterol inhaler every 6 hours when necessary 6. Depression; Cymbalta 20 mg daily DVT prophylaxis; SCDs CODE STATUS; full code
[2022-07-03] MEDS ORDERED: LINAGLIPTIN 5 MG TABLET PO SCH (09:00)
[2022-07-03 10:34] LABS: Basophils # (A) 0.04 X 10*3/uL (0.00-0.10); Basophils % (A) 0.7 %; Eosinophils # (A) 0.21 X 10*3/uL (0.04-0.35); Eosinophils % (A) 3.6 %; HCT 33.9 % (37.2-46.3); HGB 10.9 g/dL (12.0-15.0); Immature Grans, Automated 0.3 %; Lymphocytes # (A) 2.37 X 10*3/uL (0.90-5.00); Lymphocytes % (A) 41.1 %; MCH 30.9 pg (27.0-32.0); MCHC 32.2 g/dL (32.0-37.0); Mean Platelet Volume 9.2 fL (9.5-12.2); Monocytes # (A) 0.96 X 10*3/uL (0.20-1.00); Monocytes % (A) 16.6 %; NRBC Per 100 WBC 0 /100 WBCS (0.0-0.0); Neutrophils # (A) 2.17 X 10*3/uL (1.80-7.70); Neutrophils % (A) 37.7 %; Platelet Count 201 X 10*3/uL (140-440); RBC 3.53 X 10*6/uL (4.10-5.20); RDW 14.8 % (11.5-14.5); WBC 5.77 X 10*3/uL (4.50-10.00)
[2022-07-03 10:39] LABS: African American GFR (CKD) 98.3 (60.0-200.0); Albumin 3.7 g/dL (3.8-4.9); Albumin/Globulin Ratio 1.96 (1.60-3.17); Anion Gap 12.3 mmol/L (10.00-18.00); BUN/Creat Ratio 11.32 Ratio (12.00-20.00); Blood Urea Nitrogen 8.1 mg/dL (9.0-27.0); Calcium 8.8 mg/dL (8.7-10.3); Globulin 1.9 g/dL (1.6-3.3); Non-African American GFR(CKD) 84.8 (60.0-200.0); Potassium 4.2 mmol/L (3.5-5.5); Total Bilirubin 0.4 mg/dL (0.30-1.20); Total Protein 5.5 g/dL (6.2-8.2)
[2022-07-03 11:37] LABS: Glucose,Whole Blood 65 mg/dL (70-110)
[2022-07-03 11:52] LABS: Glucose,Whole Blood 47 mg/dL (70-110)
[2022-07-03 12:22] LABS: Glucose,Whole Blood 69 mg/dL (70-110)
[2022-07-03 12:45] LABS: Glucose,Whole Blood 93 mg/dL (70-110)
--- NOTE | 2022-07-03 16:57 | P.PN ---
Subjective Progress Note Date: 07/03/22 Principal diagnosis: Altered mental status/hypoglycemia Hyponatremia 72-year-old female presenting to the emergency Department with hypoglycemic episode. Patient was found on the floor of her apartment by somewhat. Patient states she did not eat much today. Patient did take her diabetic medication as normal. When EMS arrived patient was found with low blood sugar, 32. EMS provided 1 amp of D50 and sugars came up to 102 with resolution of symptoms. Patient states she feels normal at this time and has no complaints. Patient denies any injury. Workup completed in ED reveals a WBC of 3.8, hemoglobin of 12 and platelet count of 185, sodium 127, potassium 5.2, BUN/creatinine of 12/0.6 to the blood glucose 167 Patient is being admitted for observation for hypoglycemia and hyponatremia which both can contribute to mental status change -- Patient is awake and alert this morning; did have an episode of hypoglycemia with blood glucose started down in 40s this morning; she was given orange juice; does not have an IV access -- Patient is started on home dose of Glucotrol and blood sugars remain low normal; We will plan to discontinue Glucotrol altogether at this time; continue with Tradjenta and metformin as ordered - We will continue to monitor Accu-Cheks and make further recommendations accordingly Labs are reviewed and reveal them. sodium level of 135, potassium 4.2, BUN/creatinine of 8.1/0.7; white blood count at 5.7, hemoglobin is down to 10.9 from 12.2 yesterday; likely dilutional due to IV fluid resuscitation; monitor CBC closely; order stool occult blood and treat accordingly Objective - Vital Signs Vital signs: Vital Signs Temp 98.1 F 07/03/22 07:00 Pulse 50 L 07/03/22 07:00 Resp 16 07/03/22 07:00 BP 135/53 07/03/22 07:00 Pulse Ox 100 07/03/22 07:00 FiO2 Intake & Output 07/02/22 07/03/22 07/03/22 18:59 06:59 18:59 Weight 49.895 kg Other: Voiding Method Toilet # Voids 2 - Exam GENERAL: The patient is alert and oriented x3, not in any acute distress. Well developed, well nourished. HEENT: Pupils are round and equally reacting to light. EOMI. No scleral icterus. No conjunctival pallor. Normocephalic, atraumatic. No pharyngeal erythema. No thyromegaly. CARDIOVASCULAR: S1 and S2 present. No murmurs, rubs, or gallops. PULMONARY: Chest is clear to auscultation, no wheezing or crackles. ABDOMEN: Soft, nontender, nondistended, normoactive bowel sounds. No palpable organomegaly. MUSCULOSKELETAL: No joint swelling or deformity. EXTREMITIES: No cyanosis, clubbing, or pedal edema. NEUROLOGICAL: Gross neurological examination did not reveal any focal deficits. SKIN: No rashes. - Labs CBC & Chem 7: 07/03/22 06:13 07/03/22 06:13 Labs: Abnormal Lab Results - Last 24 Hours (Table) 07/02/22 07/02/22 07/02/22 Range/Units 14:13 14:13 17:01 RBC 3.73 L (3.80-5.40) m/uL Lymphocytes # 0.8 L (1.0-4.8) k/uL Sodium 127 L (137-145) mmol/L Potassium 5.2 H (3.5-5.1) mmol/L Chloride 96 L (98-107) mmol/L Glucose 167 H (74-99) mg/dL POC Glucose (mg/dL) 66 L (70-110) mg/dL 07/02/22 07/03/22 Range/Units 21:14 06:30 RBC (3.80-5.40) m/uL Lymphocytes # (1.0-4.8) k/uL Sodium (137-145) mmol/L Potassium (3.5-5.1) mmol/L Chloride (98-107) mmol/L Glucose (74-99) mg/dL POC Glucose (mg/dL) 221 H 118 H (70-110) mg/dL Assessment and Plan Assessment: 1. Critical hypoglycemia; likely related to poor oral intake- - Patient was found on the floor of her apartment by family members and EMS was called; initial blood sugar upon arrival was found to be 32; patient received 1 amp of D50 with improvement blood sugar of 106 - We will hold off on oral hypoglycemic agents and admitted for observation; monitor Accu-Cheks every before meals and at bedtime with insulin sliding scale as needed 2. Hyponatremia; patient has been placed on IV fluid hydration in form of normal saline at a rate of 75 mL an hour; we will monitor electrolytes and make further recommendations 2. Diabetes mellitus type 2; patient takes metformin 500 mg twice a day, Januvia 100 mg daily and Glucotrol 10 mg daily - Plan is to hold off home diabetic regimen until blood glucose improves and oral intake improves; we will monitor Accu-Cheks before meals and at bedtime with low intensity sliding scale 3. Hypertension; metoprolol 12.5 mg twice a day, lisinopril 10 mg daily 4. Hyperlipidemia; Lipitor 10 mg daily 5. Asthma; not in exacerbation; albuterol inhaler every 6 hours when necessary 6. Depression; Cymbalta 20 mg daily DVT prophylaxis; SCDs CODE STATUS; full code
[2022-07-03 17:18] LABS: Glucose,Whole Blood 211 mg/dL (70-110)
[2022-07-03 20:36] LABS: Glucose,Whole Blood 153 mg/dL (70-110)
[2022-07-04 02:22] LABS: Glucose,Whole Blood 100 mg/dL (70-110)
[2022-07-04] MEDS: PANTOPRAZOLE 40 MG TABLET PO SCH (06:04)
[2022-07-04 06:08] LABS: Glucose,Whole Blood 100 mg/dL (70-110)
[2022-07-04] MEDS ORDERED: glipiZIDE 5 MG TAB PO SCH (07:30)
[2022-07-04] MEDS: ATORVASTATIN 10 MG TAB PO SCH (08:12)
[2022-07-04] MEDS: lisinopriL 10 MG TAB PO SCH (08:12)
[2022-07-04] MEDS: METOPROLOL TARTRATE 12.5 MG TAB PO SCH (08:12)
[2022-07-04] MEDS: metFORMIN 500 MG TAB PO SCH (08:12)
[2022-07-04] MEDS: DULoxetine HCL 20 MG CAPSULE.DR PO SCH (08:12)
[2022-07-04 08:30] VITALS: RESP 16
[2022-07-04 08:47] LABS: HCT 32.6 % (37.2-46.3); HGB 10.7 g/dL (12.0-15.0); MCH 31.6 pg (27.0-32.0); MCHC 32.8 g/dL (32.0-37.0); MCV 96.2 fL (80.0-97.0); Mean Platelet Volume 9.3 fL (9.5-12.2); NRBC Per 100 WBC 0 /100 WBCS (0.0-0.0); Platelet Count 195 X 10*3/uL (140-440); RBC 3.39 X 10*6/uL (4.10-5.20); RDW 14.7 % (11.5-14.5); WBC 5.42 X 10*3/uL (4.50-10.00)
[2022-07-04 09:04] LABS: African American GFR (CKD) 85.4 (60.0-200.0); Anion Gap 2.3 mmol/L (10.00-18.00); BUN/Creat Ratio 10.5 Ratio (12.00-20.00); Blood Urea Nitrogen 8.4 mg/dL (9.0-27.0); Calcium 9.1 mg/dL (8.7-10.3); Carbon Dioxide 33.7 mmol/L (20.0-27.5); Non-African American GFR(CKD) 73.7 (60.0-200.0); Potassium 4.8 mmol/L (3.5-5.5)
[2022-07-04 12:19] LABS: Glucose,Whole Blood 131 mg/dL (70-110)
[2022-07-04 15:17] VITALS: BP 103/46; PULSE 56; TEMP 98.2
[2022-07-04] MEDS: SODIUM CHLORIDE 0.9% 1,000 ML IV SCH (15:48)
[2022-07-04 17:17] LABS: Glucose,Whole Blood 111 mg/dL (70-110)
--- NOTE | 2022-07-04 19:20 | P.DS ---
Providers Date of admission: 07/02/22 16:53 Attending physician: Marvin Kellogg MD Consults: 07/04/22 12:15 Consult Physician Urgent Consulting Provider: Maximus Weiss Consult Reason/Comments: bradycardia Do you want consulting provider notified?: Yes Primary care physician: [facility] Course: Diagnoses: Diabetes mellitus with hypoglycemia, present on admission, improved. Period Of unresponsiveness secondary to above, improved of correction of hypoglycemia asymptomatic bradycardia secondary to metoprolol Hypertension Dehydration, improved Chronic anemia, stable Hyperlipidemia Depression, not in active tissue History of asthma, not an active issue Hospital course: 72-year-old female presenting to the emergency Department with hypoglycemic episode. Patient was found on the floor of her apartment by somewhat. Patient states she did not eat much today. Patient did take her diabetic medication as normal. When EMS arrived patient was found with low blood sugar, 32. EMS prov ided 1 amp of D50 and sugars came up to 102 with resolution of symptoms. Patient states she feels normal at this time and has no complaints. 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 Weiss in one week and she agrees. Origin and she told me she has appointment with him on 07/19. But she estimates without appointment. Patient also known to drink alcohol 9-12 beers, confirmed with family member with think the patient will go back to drinking and smoking, she smokes about 1 pack per day per family, patient was counseled. CIWA score was calculated at was 0 upon discharge, patient also mentation at baseline with no respiratory symptoms. Patient denies chest pain. No Neurological, neurological or GI symptoms as per patient today, I talked to the patient and 2 occasions and both times she confirmed to me she feels fine and she wants to go home. Also family members including the daughter were informed with this recommendation and they were at bedside, confirmed with the bedside nurse Patient denies any other new symptoms. Patient declines to go to rehab and she wants to go home, home health care ordered Problems and management plan were discussed with the patient and he verbalized understanding and acceptance Patient was found stable and can be discharged home in guarded prognosis however he needs follow-up as an outpatient. Patient was instructed to follow up with PCP Dr. 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 Weiss in one week and she agrees to call and make appointments Physical exam Gen: patient is a AAOx3, no distress CVS: S1-S2, RRR, no murmur Lungs: B/L CTA, no wheezing Abdomen: soft, no distention, no tenderness, positive bowel sounds Extremity: no leg edema or induration Time spent more than 35 minutes Plan - Discharge Summary Discharge Rx Participant: No New Discharge Prescriptions: Continue metFORMIN HCL [Glucophage] 500 mg PO BID lisinopriL [Zestril] 10 mg PO DAILY Albuterol Sulfate [Ventolin HFA] 1 - 2 puff INHALATION RT-Q6H PRN PRN Reason: Shortness Of Breath Atorvastatin [Lipitor] 10 mg PO DAILY Pantoprazole [Protonix] 40 mg PO AC-BRKFST tablet. DULoxetine HCL [Cymbalta] 20 mg PO DAILY Discontinued sitaGLIPtin [Januvia] 100 mg PO DAILY glipiZIDE [Glucotrol] 10 mg PO AC-BRKFST Metoprolol Tartrate [Lopressor] 12.5 mg PO BID Discharge Medication List metFORMIN HCL [Glucophage] 500 mg PO BID 01/21/16 [History] lisinopriL [Zestril] 10 mg PO DAILY 09/17/18 [History] Albuterol Sulfate [Ventolin HFA] 1 - 2 puff INHALATION RT-Q6H PRN 02/01/20 [History] Atorvastatin [Lipitor] 10 mg PO DAILY 02/01/20 [History] Pantoprazole [Protonix] 40 mg PO AC-BRKFST tablet. 02/04/20 [Rx] DULoxetine HCL [Cymbalta] 20 mg PO DAILY 07/02/22 [History] Follow up Appointment(s)/Referral(s): Maximus Weiss MD [STAFF PHYSICIAN] - 1 Week (Office will call with appointment time and date.) Justin Clifford MD [Primary Care Provider] - 1-2 days (Please call tomorrow to set up an appointment ) Patient Instructions/Handouts: Cigarette Smoking and Your Health (GEN), Hypoglycemia in a Person with Diabetes (DC), Alcohol Intoxication (DC), Holter Monitor (GEN) Activity/Diet/Wound Care/Special Instructions: heart healthy diet activity is restricted till you see your doctor we recommend to check your glucose 4 times a day before each meal and at bed time , keep the results in a log book and bring it to your doctor upon your appointment date if your glucose is less than 70 or more than 400 then call 911 and come to emergency room check blood pressure too! Discharge Disposition: HOME WITH HOME HEALTH SERVICES
== END 2022-07-04 19:49 | disposition home health service (06) ==
LOC: EC 13:12 → 6NMEDSUR 16:53
PROVIDERS: ADMIT Internal Medicine; ATTEND Internal Medicine
DX: E11.649 Type 2 diabetes mellitus with hypoglycemia without coma (principal); T44.7X5A Adverse effect of beta-adrenoreceptor antagonists, initial encounter; R00.1 Bradycardia, unspecified; E87.1 Hypo-osmolality and hyponatremia; E86.0 Dehydration; D64.9 Anemia, unspecified; E78.5 Hyperlipidemia, unspecified; I10 Essential (primary) hypertension; I25.2 Old myocardial infarction; E11.42 Type 2 diabetes mellitus with diabetic polyneuropathy; F32.A Depression, unspecified; J45.909 Unspecified asthma, uncomplicated; F17.200 Nicotine dependence, unspecified, uncomplicated; Z98.51 Tubal ligation status; Z96.0 Presence of urogenital implants; Z79.84 Long term (current) use of oral hypoglycemic drugs; Z79.899 Other long term (current) drug therapy; Z83.3 Family history of diabetes mellitus
CPT/HCPCS: 99285; 36415; 93270; 80053 ×2; 80048; 85025 ×2; 85027; 83036; G0378 ×3

== ENCOUNTER 2023-03-01 20:04 | Observation (INO) | payer MEDICARE, OTHER ==
--- NOTE | 2023-03-01 21:35 | ED ---
General Adult HPI - General Source: patient, EMS, RN notes reviewed Mode of arrival: EMS Limitations: no limitations <Glenna Zuñiga - Last Filed: 03/03/23 16:24> - General Source: EMS, RN notes reviewed, old records reviewed Mode of arrival: EMS Limitations: no limitations - History of Present Illness -: hour(s) Location: buttocks, right, lower extremity Radiation: non-radiation Severity scale (1-10): 7 Quality: sharp Consistency: constant Improves with: none Worsens with: none Associated Symptoms: denies other symptoms Treatments Prior to Arrival: none <Cosme Martins - Last Filed: 03/06/23 23:25> - General Chief complaint: Fall Stated complaint: Fall Time Seen by Provider: 03/01/23 20:58 - History of Present Illness Initial comments: 72-year-old female presents to the emergency department with chief complaint of fall. She states that she was walking earlier with her walker when the wheel caught on a counter and she felt on her right-sided hip and hit her head on the floor. She reports pain to her medial thigh. Denies any other injury. She reports that she is not able to walk on the right leg. Denies numbness, t ingling. (Glenna Zuñiga) This is a 72-year-old female to ER after fall with severe pain pain in her hip pain or back pain and right-sided pelvis. Patient is unable to ambulate here in the emergency room at despite pain medication help. (Cosme Martins) - Related Data Home Medications Medication Instructions Recorded Confirmed lisinopriL [Zestril] 10 mg PO DAILY 09/17/18 03/02/23 Albuterol Sulfate [Ventolin HFA] 1 - 2 puff INHALATION RT-Q6H PRN 02/01/20 03/02/23 Atorvastatin [Lipitor] 10 mg PO DAILY 02/01/20 03/02/23 DULoxetine HCL [Cymbalta] 20 mg PO DAILY 07/02/22 03/02/23 Fluticasone Nasal [place] [Flonase 1 spray EA NOSTRIL DAILY 03/02/23 03/02/23 Nasal [place]] Pantoprazole [Protonix] 40 mg PO DAILY 03/02/23 03/02/23 sitaGLIPtin [Januvia] 50 mg PO DAILY 03/02/23 03/02/23 Previous Rx's Medication Instructions Recorded HYDROcodone/APAP 5-325MG [[place] 1 tab PO Q6HR PRN #32 tab 03/03/23 5-325] Allergies Allergy/AdvReac Type Severity Reaction Status Date / Time No Known Allergies Allergy Verified 07/02/22 16:40 Review of Systems ROS Other: All systems not noted in ROS Statement are negative. <Glenna Zuñiga - Last Filed: 03/03/23 16:24> ROS Other: All systems not noted in ROS Statement are negative. <Cosme Martins - Last Filed: 03/06/23 23:25> ROS Statement: Those systems with pertinent positive or pertinent negative responses have been documented in the HPI. Past Medical History Past Medical History: Diabetes Mellitus, Hyperlipidemia, Hypertension, Myocardial Infarction ([place]) Additional Past Medical History / Comment(s): PERIPHERALLY NEUROPATHY,. SINUS ALLERGIES. DEERING, getting hearing aides. Last Myocardial Infarction Date:: 06-14-15 History of Any Multi-Drug Resistant Organisms: None Reported Past Surgical History: Adenoidectomy, Heart Catheterization, Tonsillectomy, Tubal Ligation Additional Past Surgical History / Comment(s): Left Oopherectomy, kidney stent. COLONOSCOPY Past Anesthesia/Blood Transfusion Reactions: No Reported Reaction Past Psychological History: No Psychological Hx Reported Smoking Status: Current every day smoker Past Alcohol Use History: Abuse, Daily, Heavy Past Drug Use History: None Reported - Past Family History Brother(s) Family Medical History: Diabetes Mellitus Sister(s) Family Medical History: Cancer (Breast cancer) Daughter(s) Family Medical History: No Reported History Son(s) Family Medical History: No Reported History Mother Family Medical History: Pneumonia Father Family Medical History: GI Bleed, Myocardial Infarction ([place]) Additional Family Medical History / Comment(s): PATIENT AGE 12 WHEN FATHER -- HEART ATTACK AND BLEEDING ULCERS, ALCOHOLIC <Glenna Zuñiga - Last Filed: 03/03/23 16:24> General Exam Limitations: no limitations General appearance: alert, in no apparent distress Head exam: Present: atraumatic, normocephalic, normal inspection Eye exam: Present: normal appearance, PERRL, EOMI. Absent: scleral icterus, conjunctival injection, periorbital swelling ENT exam: Present: normal exam, mucous membranes moist Neck exam: Present: normal inspection. Absent: tenderness, meningismus, lymphadenopathy Respiratory exam: Present: wheezes. Absent: normal lung sounds bilaterally, respiratory distress, rales, rhonchi, stridor Cardiovascular Exam: Present: regular rate, normal rhythm, systolic murmur GI/Abdominal exam: Present: soft, normal bowel sounds. Absent: distended, tenderness, guarding, rebound, rigid Extremities exam: Present: full ROM, tenderness (Right medial thigh), normal capillary refill, pedal edema, other (DT and PT pulses 2+). Absent: calf tenderness Back exam: Present: normal inspection Neurological exam: Present: alert, oriented X3 Psychiatric exam: Present: normal affect, normal mood Skin exam: Present: warm, dry, intact, normal color. Absent: rash <Glenna Zuñiga - Last Filed: 03/03/23 16:24> General appearance: alert, in no apparent distress Head exam: Present: atraumatic, normocephalic, normal inspection Eye exam: Present: normal appearance, PERRL, EOMI. Absent: scleral icterus, conjunctival injection, periorbital swelling ENT exam: Present: normal exam, mucous membranes moist Neck exam: Present: normal inspection. Absent: tenderness, meningismus, lymphadenopathy Respiratory exam: Present: normal lung sounds bilaterally. Absent: respiratory distress, wheezes, rales, rhonchi, stridor Cardiovascular Exam: Present: regular rate, normal rhythm, normal heart sounds. Absent: systolic murmur, diastolic murmur, rubs, gallop, clicks GI/Abdominal exam: Present: soft, normal bowel sounds. Absent: distended, tenderness, guarding, rebound, rigid Extremities exam: Present: normal inspection, full ROM, normal capillary refill. Absent: tenderness, pedal edema, joint swelling, calf tenderness Back exam: Present: normal inspection Neurological exam: Present: alert, oriented X3, CN II-XII intact Psychiatric exam: Present: normal affect, normal mood Skin exam: Present: warm, dry, intact, normal color. Absent: rash <Cosme Martins - Last Filed: 03/06/23 23:25> Course <Cosme Martins - Last Filed: 09/11/23 23:25> Vital Signs 03/01/23 03/02/23 03/02/23 20:11 01:15 04:28 Temperature 98.1 F 97.4 F L Pulse Rate 60 63 60 Respiratory 18 18 18 Rate Blood Pressure 129/61 174/67 184/89 O2 Sat by Pulse 98 99 100 Oximetry 03/02/23 03/02/23 03/02/23 13:50 14:00 14:30 Temperature 97.8 F Pulse Rate 75 78 73 Respiratory 19 Rate Blood Pressure 154/93 O2 Sat by Pulse 100 Oximetry - Reevaluation(s) Reevaluation #1: 03/02/23 02:55 Medical record is reviewed (Cosme Martins) Reevaluation #2: 03/02/23 02:55 Patient remains in severe pain unable to ambulate (Cosme Martins) Reevaluation #3: 03/02/23 02:55 Patient informed results questions answered (Cosme Martins) Reevaluation #4: 03/02/23 02:55 Was pt. sent in by a medical professional or institution (, PA, DICTAPHONE TRANSCRIBER, urgent ca re, hospital, or half-way...) When possible be specific @ -no Did you speak to anyone other than the patient for history (EMS, parent, family, police, friend...)? What history was obtained from this source @ -no Did you review nursing and triage notes (agree or disagree)? Why? @ -agree Are old charts reviewed (outside hosp., previous admission, EMS record, old EKG, old radiological studies, urgent care reports/EKG's, half-way records)? Report findings @ -yes Differential Diagnosis (chest pain, altered mental status, abdominal pain women, abdominal pain men, vaginal bleeding, weakness, fever, dyspnea, syncope, headache, dizziness, GI bleed, back pain, seizure, CVA, palpatations, mental health, musculoskeletal)? @ -prior EKG interpreted by me (3pts min.). @ -yes X-rays interpreted by me (1pt min.). @ -yes CT interpreted by me (1pt min.). @ -yes U/S interpreted by me (1pt. min.). @ -no What testing was considered but not performed or refused? (CT, X-rays, U/S, labs)? Why? @ -none What meds were considered but not given or refused? Why? @ -none Did you discuss the management of the patient with other professionals (professionals i.e. , PA, DICTAPHONE TRANSCRIBER, lab, RT, psych nurse, social service worker, warehouse technician, teacher, chief sales officer, case finisher)? Give summary @ -no Was smoking cessation discussed for >3mins.? @ -no Was critical care preformed (if so, how long)? @ -no Were there social determinants of health that impacted care today? How? (Homelessness, low income, unemployed, alcoholism, drug addiction, transportation, low edu. Level, literacy, decrease access to med. care, retirement, rehab)? @ -none Was there de-escalation of care discussed even if they declined (Discuss DNR or withdrawal of care, Hospice)? DNR status @ -no What co-morbidities impacted this encounter? (DM, HTN, Smoking, COPD, CAD, Cancer, CVA, ARF, Chemo, Hep., AIDS, mental health diagnosis, sleep apnea, morbid obesity)? @ -none Was patient admitted / discharged? Hospital course, mention meds given and route, prescriptions, significant lab abnormalities, going to OR and other pertinent info. @ - 72 female with severe debility will be admitted for PTOT, patient is found to have pelvic fracture on computed tomography scan. We'll admit for pain control Admitted Undiagnosed new problem with uncertain prognosis? @ -no Drug Therapy requiring intensive monitoring for toxicity (Heparin, Nitro, Insulin, Cardizem)? @ -no Were any procedures done? @ -no Diagnosis/symptom? @ -Pelvic fracture, fall Acute, or Chronic, or Acute on Chronic? @ -Acute Uncomplicated (without systemic symptoms) or Complicated (systemic symptoms)? @ -Complicated Side effects of treatment? @ -no Exacerbation, Progression, or Severe Exacerbation? @ -exacerbation Poses a threat to life or bodily function? How? (Chest pain, [place], [place], pneumonia, PE, COPD, DKA, ARF, appy, cholecystitis, CVA, Diverticulitis, Homicidal, Suicidal, threat to staff... and all critical care pts) @ -yes extreme of age with falls (Cosme Martins) Reevaluation #5: 03/02/23 02:55 Differential Weakness: Hypoglycemia, shock, sepsis, hyponatremia, anemia, infection, [place], ETOH, adverse medicine reaction, overdose, stroke, this is not meant to be an all-inclusive list. (Cosme Martins) EKG Findings - EKG Comments: EKG Findings:: EKG is sinus bradycardia 58 MS 169 QRS 89 QTc 445 - EKG Results: EKG: interpreted by ERMD <Cosme Martins - Last Filed: 03/06/23 23:25> Medical Decision Making - Lab Data Result diagrams: 03/03/23 07:06 03/03/23 07:06 <Glenna Zuñiga - Last Filed: 03/03/23 16:24> - Lab Data Result diagrams: 03/04/23 06:12 03/04/23 06:12 - EKG Data -: EKG Interpreted by Me - Radiology Data Radiology results: report reviewed (CT brain C-spine chest and pelvis x-ray, CT right hip positive for pelvic fracture), image reviewed <Cosme Martins - Last Filed: 03/06/23 23:25> - Medical Decision Making Was pt. sent in by a medical professional or institution (, PA, DICTAPHONE TRANSCRIBER, urgent care, hospital, or half-way...) When possible be specific @ -No Did you speak to anyone other than the patient for history (EMS, parent, family, police, friend...)? What history was obtained from this source @ -No Did you review nursing and triage notes (agree or disagree)? Why? @ -I reviewed and agree with nursing and triage notes Were old charts reviewed (outside hosp., previous admission, EMS record, old EKG, old radiological studies, urgent care reports/EKG's, half-way records)? Report findings @ -No old charts were reviewed Differential Diagnosis (chest pain, altered mental status, abdominal pain women, abdominal pain men, vaginal bleeding, weakness, fever, dyspnea, syncope, headache, dizziness, GI bleed, back pain, seizure, CVA, palpatations, mental health, musculoskeletal)? @ -Differential Musculoskeletal Muscular strain, contusion, ligament sprain, fracture, arthritis, septic arthritis, bursitis, cellulitis, muscle spasm, nerve compression, DVT, arterial occlusion, herpes zoster, electrolyte abnormality, tumor.... This is not meant to be in all inclusive list EKG interpreted by me (3pts min.). @ -None X-rays interpreted by me (1pt min.). @ -X-ray right hip and pelvis obtained which shows no evidence of acute fracture CT interpreted by me (1pt min.). @ -CT brain and Cspine shows no evidence of intracranial hemorrhage or fracture U/S interpreted by me (1pt. min.). @ -None done What testing was considered but not performed or refused? (CT, X-rays, U/S, labs)? Why? @ -None What meds were considered but not given or refused? Why? @ -None Did you discuss the management of the patient with other professionals (professionals i.e. , PA, DICTAPHONE TRANSCRIBER, lab, RT, psych nurse, social service worker, warehouse technician, teacher, chief sales officer, case finisher)? Give summary @ -No Was smoking cessation discussed for >3mins.? @ -No Was critical care preformed (if so, how long)? @ -No Were there social determinants of health that impacted care today? How? (Homelessness, low income, unemployed, alcoholism, drug addiction, transportation, low edu. Level, literacy, decrease access to med. care, retirement, rehab)? @ -No Was there de-escalation of care discussed even if they declined (Discuss DNR or withdrawal of care, Hospice)? DNR status @ -No What co-morbidities impacted this encounter? (DM, HTN, Smoking, COPD, CAD, Cancer, CVA, ARF, Chemo, Hep., AIDS, mental health diagnosis, sleep apnea, morbid obesity)? @ -None Was patient admitted / discharged? Hospital course, mention meds given and route, prescriptions, significant lab abnormalities, going to OR and other pertinent info. @ -Admitted. Patient presented to the emergency department following a mechanical fall that occurred at home. Patient reports that she is having pain in her right medial thigh. She also reports hitting her head. CT brain showed no evidence of intracranial hemorrhage. XR right hip, pelvis showed no evidence of acute fracture. Patient given toradol, tylenol, lidocaine patch but is unable to ambulate. Patient signed out to Dr. Martins pending labs and admission for PT, OT. Undiagnosed new problem with uncertain prognosis? @ -No Drug Therapy requiring intensive monitoring for toxicity (Heparin, Nitro, Insulin, Cardizem)? @ -No Were any procedures done? @ -No Diagnosis/symptom? @ -fall Acute, or Chronic, or Acute on Chronic? @ -acute Uncomplicated (without systemic symptoms) or Complicated (systemic symptoms)? @ -uncomplicated Side effects of treatment? @ -No Exacerbation, Progression, or Severe Exacerbation? @ -No Poses a threat to life or bodily function? How? (Chest pain, [place], [place], pneumonia, PE, COPD, DKA, ARF, appy, cholecystitis, CVA, Diverticulitis, Homicidal, Suicidal, threat to staff... and all critical care pts) @ -No (Glenna Zuñiga) 72 female with severe debility will be admitted for PTOT, patient is found to have pelvic fracture on computed tomography scan. We'll admit for pain control (Cosme Martins) - Lab Data Lab Results 03/02/23 03/02/23 03/02/23 Range/Units 04:28 04:28 05:09 WBC 6.4 (3.8-10.6) k/uL RBC 3.93 (3.80-5.40) m/uL Hgb 12.2 (11.4-16.0) gm/dL Hct 37.1 (34.0-46.0) % MCV 94.5 (80.0-100.0) fL MCH 30.9 (25.0-35.0) pg MCHC 32.7 (31.0-37.0) g/dL RDW 13.2 (11.5-15.5) % Plt Count 332 (150-450) k/uL MPV 6.8 Neutrophils % 66 % Lymphocytes % 22 % Monocytes % 9 % Eosinophils % 1 % Basophils % 0 % Neutrophils # 4.2 (1.3-7.7) k/uL Lymphocytes # 1.4 (1.0-4.8) k/uL Monocytes # 0.5 (0-1.0) k/uL Eosinophils # 0.1 (0-0.7) k/uL Basophils # 0.0 (0-0.2) k/uL Sodium 133 L (137-145) mmol/L Potassium 5.2 H (3.5-5.1) mmol/L Chloride 100 (98-107) mmol/L Carbon Dioxide 29 (22-30) mmol/L Anion Gap 4 mmol/L BUN 11 (7-17) mg/dL Creatinine 0.59 (0.52-1.04) mg/dL Est GFR (CKD-EPI)AfAm >90 (>60 ml/min/1.73 sqM) Est GFR (CKD-EPI)NonAf >90 (>60 ml/min/1.73 sqM) Glucose 88 (74-99) mg/dL Calcium 9.2 (8.4-10.2) mg/dL Phosphorus 4.7 H (2.5-4.5) mg/dL Magnesium 1.9 (1.6-2.3) mg/dL Total Bilirubin 0.8 (0.2-1.3) mg/dL AST 31 (14-36) U/L ALT 24 (4-34) U/L Alkaline Phosphatase 88 (38-126) U/L Total Protein 6.6 (6.3-8.2) g/dL Albumin 3.7 (3.5-5.0) g/dL Urine Color Colorless Urine Appearance Clear (Clear) Urine pH 5.0 (5.0-8.0) Ur Specific [place] 1.005 (1.001-1.035) Urine Protein Negative (Negative) Urine Glucose (UA) Negative (Negative) Urine Ketones Negative (Negative) Urine Blood Negative (Negative) Urine Nitrite Negative (Negative) Urine Bilirubin Negative (Negative) Urine Urobilinogen <2.0 (<2.0) mg/dL Ur Leukocyte Esterase Negative (Negative) Serum Alcohol <10 mg/dL Disposition <Glenna Zuñiga - Last Filed: 03/03/23 16:24> Is patient prescribed a controlled substance at d/c from ED?: No Time of Disposition: 02:55 <Cosme Martins - Last Filed: 03/06/23 23:25> Clinical Impression: Fall, Weakness, Pubic bone fracture, Pubic ramus fracture Disposition: ADMITTED IP TO THIS HOSP Condition: Fair
--- NOTE | 2023-03-01 22:17 | CT ---
EXAMINATION TYPE: CT brain cspine wo con CT DLP: 1246.3 mGycm, Automated exposure control for dose reduction was used. DATE OF EXAM: 03/01/2023 9:53 PM COMPARISON: 01/31/2020 CLINICAL INDICATION:Female, 72 years old with history of fall, hit head; fall TECHNIQUE: Brain: Multiple axial CT images of the brain were obtained without IV contrast. Cspine: Axial CT images from the skull base to the inferior aspect of T2 we obtained without intraven ous contrast. Coronal and sagittal reformatted images were also reviewed. FINDINGS: Brain: Extra-axial spaces: No abnormal extra-axial fluid collections. Ventricular system: Dilatation in proportion to cerebral atrophy. Cerebral parenchyma: Remote right insular cortex injury. Cerebral atrophy. No acute intraparenchymal hemorrhage or mass effect. The snyder-white junction is well differentiated. Scattered hypoattenuating areas are seen within the white matter. Cerebellum: Unremarkable. Mass effect: No evidence of midline shift. Intracranial vasculature: Atherosclerotic calcifications of the intracranial vessels. Soft tissues: Normal. Calvarium/osseous structures: No depressed skull fracture. Paranasal sinuses and mastoid air cells: Clear. Visualized orbits: Orbital contents are intact. Cervical spine: Fracture: None. Osseous structures: Multilevel degenerative disc disease changes with endplate spurring and disc oste ophyte complex's. Degeneration changes of the TMJ bilaterally. Vertebral alignment: Within normal limits. Spinal canal/Neural Foramina: Disc osteophyte complexes at C4-C7 with at least mild spinal canal sten osis. Facet joint uncovertebral joint arthropathy scattered throughout the cervical spine with varyin g degrees of neural foraminal stenosis. Neck soft tissues: Prevertebral soft tissues are within normal limits. Other: The airway is patent. The lung apices are clear. IMPRESSION: 1. No acute intracranial process. 2. Nonspecific white matter changes, likely secondary to chronic small vessel ischemic disease. 3. No evidence of cervical spine fracture. 4. Moderate to severe multilevel degenerative disc disease.
--- NOTE | 2023-03-01 22:32 | XR ---
EXAM: XR Pelvis, 1 or 2 Views CLINICAL HISTORY: ITS.REASON XR Reason: fall TECHNIQUE: Frontal view of the pelvis. COMPARISON: No relevant prior studies available. FINDINGS: Bones/joints: RIGHT hip bipolar hemiarthroplasty. No periprosthetic fracture, loosening, or dislocation. Soft tissues: Unremarkable. IMPRESSION: RIGHT hip bipolar hemiarthroplasty. No periprosthetic fracture, loosening, or dislocation.
--- NOTE | 2023-03-01 22:33 | XR ---
EXAM: XR Right Femur, 2 Views CLINICAL HISTORY: ITS.REASON XR Reason: fall TECHNIQUE: Frontal and lateral views of the right femur. COMPARISON: No relevant prior studies available. FINDINGS: Bones/joints: RIGHT hip bipolar hemiarthroplasty. No periprosthetic fracture. Intact femur. Osseous demineralization. No dislocation. Soft tissues: Unremarkable. Vasculature: Vascular calcifications. IMPRESSION: RIGHT hip bipolar hemiarthroplasty. No periprosthetic fracture. Intact femur.
[2023-03-01] MEDS ORDERED: KETOROLAC 15 MG/ML 1 ML VIAL IM STA (22:54)
[2023-03-01] MEDS ORDERED: ACETAMINOPHEN TAB 500 MG TAB PO STA (22:54)
[2023-03-01] MEDS ORDERED: LIDOCAINE 5% PATCH TOPICAL STA (22:54)
[2023-03-02] MEDS ORDERED: SODIUM CHLORIDE 0.9% 1,000 ML IV STA (01:35)
[2023-03-02] MEDS ORDERED: MORPHINE SULFATE 4 MG/ML SYRINGE IV STA (01:35)
[2023-03-02] MEDS ORDERED: MORPHINE SULFATE 4 MG/ML SYRINGE IV PRN (02:52)
[2023-03-02] MEDS ORDERED: MORPHINE SULFATE 4 MG/ML SYRINGE IVP STA (02:52)
[2023-03-02 04:43] LABS: Basophils % (A) 0 %; Eosinophils # (A) 0.1 k/uL (0-0.7); Eosinophils % (A) 1 %; HCT 37.1 % (34.0-46.0); HGB 12.2 gm/dL (11.4-16.0); Lymphocytes # (A) 1.4 k/uL (1.0-4.8); Lymphocytes % (A) 22 %; MCH 30.9 pg (25.0-35.0); MCHC 32.7 g/dL (31.0-37.0); MCV 94.5 fL (80.0-100.0); Mean Platelet Volume 6.8; Monocytes # (A) 0.5 k/uL (0-1.0); Monocytes % (A) 9 %; Neutrophils # (A) 4.2 k/uL (1.3-7.7); Neutrophils % (A) 66 %; Platelet Count 332 k/uL (150-450); RBC 3.93 m/uL (3.80-5.40); RDW 13.2 % (11.5-15.5); WBC 6.4 k/uL (3.8-10.6)
[2023-03-02 05:05] LABS: ALT 24 U/L (4-34); AST 31 U/L (14-36); African American GFR (CKD) >90 (>60 ml/min/1.73 sqM); Albumin 3.7 g/dL (3.5-5.0); Alcohol <10 mg/dL; Alkaline Phosphatase 88 U/L (38-126); Anion Gap 4 mmol/L; Blood Urea Nitrogen 11 mg/dL (7-17); Calcium 9.2 mg/dL (8.4-10.2); Carbon Dioxide 29 mmol/L (22-30); Chloride 100 mmol/L (98-107); Glucose 88 mg/dL (74-99); Magnesium 1.9 mg/dL (1.6-2.3); Non-African American GFR(CKD) >90 (>60 ml/min/1.73 sqM); Phosphorus 4.7 mg/dL (2.5-4.5); Potassium 5.2 mmol/L (3.5-5.1); Sodium 133 mmol/L (137-145); Total Bilirubin 0.8 mg/dL (0.2-1.3); Total Protein 6.6 g/dL (6.3-8.2)
--- NOTE | 2023-03-02 05:23 | XR ---
EXAM: XR Chest, 1 View CLINICAL HISTORY: ITS.REASON XR Reason: pain TECHNIQUE: Frontal view of the chest. COMPARISON: Single view of the chest dated February 01, 2020. IMPRESSION: 1. Cardiomegaly which may be due in part to technique. 2. Mild thickening of the minor fissure with minimal measures opacities in the lungs. Findings may relate to mild interstitial pulmonary edema.
--- NOTE | 2023-03-02 05:30 | CT ---
EXAM: CT Right Lower Extremity Without Intravenous Contrast, Hip CLINICAL HISTORY: ITS.REASON CT Reason: pain TECHNIQUE: Axial computed tomography images of the right hip without intravenous contrast. CTDI is 18.7 mGy and DLP is 647.4 mGy-cm. This CT exam was performed using one or more of the following dose reduction techniques: automated exposure control, adjustment of the mA and/or kV according to patient size, and/or use of iterative reconstruction technique. COMPARISON: No relevant prior studies available. FINDINGS: Bones/joints: Acute fracture of the right superior pubic ramus (series 203 image 16). No evidence of acetabular involvement noted, though limited by bone demineralization. Consider MRI. Acute fracture of the right inferior pubic ramus. Consider pelvic imaging to evaluate for sacral fracture. Patient status post right hip hemiarthroplasty without evidence of periprosthetic fracture. No dislocation. Soft tissues: Unremarkable. Vasculature: Atherosclerotic disease. IMPRESSION: 1. Acute fracture of the right superior pubic ramus (series 203 image 16). No evidence of acetabular involvement noted, though limited by bone demineralization. Consider MRI. 2. Acute fracture of the right inferior pubic ramus. 3. Patient status post right hip hemiarthroplasty without evidence of periprosthetic fracture. <MYCVCSECTION> Communications: 03/02/23 05:36 Verify Receipt Verified receipt with Dr. Martins on 03/02 05:35 (-04:00)
--- NOTE | 2023-03-02 05:30 | CT ---
EXAM: CT Pelvis Without Intravenous Contrast CLINICAL HISTORY: ITS.REASON CT Reason: pain TECHNIQUE: Axial computed tomography images of the pelvis without intravenous contrast. CTDI is 18.7 mGy and DLP is 647.4 mGy-cm. This CT exam was performed using one or more of the following dose reduction techniques: automated exposure control, adjustment of the mA and/or kV according to patient size, and/or use of iterative reconstruction technique. COMPARISON: No relevant prior studies available. FINDINGS: Bowel: Unremarkable. No obstruction. No mucosal thickening. Appendix: No findings to suggest acute appendicitis. Intraperitoneal space: Unremarkable. No free air. No significant fluid collection. Bladder: Unremarkable. No stones. Reproductive: Unremarkable as visualized. Bones/joints: Patient is status post right hip hemiarthroplasty. There are acute fractures of the right superior and inferior pubic rami, best seen on dedicated hip imaging. No gross evidence of sacral fracture. No gross evidence of periprosthetic fracture. Consider MRI if there is further concern. No dislocation. Soft tissues: Unremarkable. Vasculature: Atherosclerotic disease. No lower abdominal aortic aneurysm. Lymph nodes: Unremarkable. No enlarged lymph nodes. IMPRESSION: Patient is status post right hip hemiarthroplasty. There are acute fractures of the right superior and inferior pubic rami, best seen on dedicated hip imaging. No gross evidence of sacral fracture. No gross evidence of periprosthetic fracture. Consider MRI if there is further concern.
[2023-03-02] MEDS ORDERED: THIAMINE 100 MG/ML 2 ML VIAL IM STA (05:36)
[2023-03-02] MEDS ORDERED: ONDANSETRON 4 MG/2 ML VIAL IVP PRN (05:36)
[2023-03-02] MEDS ORDERED: NALOXONE 0.4 MG/ML 1 ML VIAL IV PRN (05:36)
[2023-03-02] MEDS ORDERED: LORazepam 2 MG/ML INJ IV PRN ×4 (05:36)
[2023-03-02 06:51] LABS: Appearance,Urine Clear (Clear); Bilirubin,Urine Negative (Negative); Blood,Urine Negative (Negative); Color,Urine Colorless; Glucose,Urine (UA) Negative (Negative); Ketones,Urine Negative (Negative); Leukocyte Esterase,Urine Negative (Negative); Nitrite,Urine Negative (Negative); Protein,Urine Negative (Negative); Specific Gravity,Urine 1.005 (1.001-1.035); Urobilinogen,Urine <2.0 mg/dL (<2.0)
[2023-03-02] MEDS: MULTIVITAMINS, THERA 1 EACH TAB PO SCH (10:55)
[2023-03-02] MEDS: SODIUM CHLORIDE 0.9% 1,000 ML IV SCH (10:55)
[2023-03-02] MEDS: FOLIC ACID 1 MG TAB PO SCH (10:55)
[2023-03-02] MEDS: PANTOPRAZOLE 40 MG/10 ML VIAL IV SCH (10:55)
--- NOTE | 2023-03-02 11:16 | P.HPOR ---
History of Present Illness H&P Date: 03/02/23 Chief Complaint: Right hip pain 72-year-old female presents to the emergency department with chief complaint of fall. She states that she was walking earlier with her walker when the wheel caught on a counter and she felt on her right-sided hip and hit her head on the floor. She reports pain to her medial thigh. Denies any other injury. She reports that she is not able to walk on the right leg. Denies numbness, tingling. She was found to have a superior rami fracture and is admitted to orthopedics for further treatment and possible inpatient rehab placement. She states that she has been falling a lot at home. She does live alone and is having some difficulty managing. Past Medical History Past Medical History: Diabetes Mellitus, Hyperlipidemia, Hypertension, Myocardial Infarction (SD) Additional Past Medical History / Comment(s): PERIPHERALLY NEUROPATHY,. SINUS ALLERGIES. [place], getting hearing aides. Last Myocardial Infarction Date:: 06-14-15 History of Any Multi-Drug Resistant Organisms: None Reported Past Surgical History: Adenoidectomy, Heart Catheterization, Tonsillectomy, Tubal Ligation Additional Past Surgical History / Comment(s): Left Oopherectomy, kidney stent. COLONOSCOPY Past Anesthesia/Blood Transfusion Reactions: No Reported Reaction Past Psychological History: No Psychological Hx Reported Smoking Status: Current every day smoker Past Alcohol Use History: Abuse, Daily, Heavy Past Drug Use History: None Reported - Past Family History Brother(s) Family Medical History: Diabetes Mellitus Sister(s) Family Medical History: Cancer (Breast cancer) Daughter(s) Family Medical History: No Reported History Son(s) Family Medical History: No Reported History Mother Family Medical History: Pneumonia Father Family Medical History: GI Bleed, Myocardial Infarction (SD) Additional Family Medical History / Comment(s): PATIENT AGE 12 WHEN FATHER -- HEART ATTACK AND BLEEDING ULCERS, ALCOHOLIC Medications and Allergies Home Medications Medication Instructions Recorded Confirmed Type lisinopriL [Zestril] 10 mg PO DAILY 09/17/18 03/02/23 History Albuterol Sulfate [Ventolin HFA] 1 - 2 puff INHALATION RT-Q6H PRN 02/01/20 03/02/23 History Atorvastatin [Lipitor] 10 mg PO DAILY 02/01/20 03/02/23 History DULoxetine HCL [Cymbalta] 20 mg PO DAILY 07/02/22 03/02/23 History Fluticasone Nasal [place] [Flonase 1 spray EA NOSTRIL DAILY 03/02/23 03/02/23 History Nasal [place]] Pantoprazole [Protonix] 40 mg PO DAILY 03/02/23 03/02/23 History sitaGLIPtin [Januvia] 50 mg PO DAILY 03/02/23 03/02/23 History Allergies Allergy/AdvReac Type Severity Reaction Status Date / Time No Known Allergies Allergy Verified 07/02/22 16:40 Physical Examination This is a pleasant 72-year-old female in no acute distress. She is alert and oriented 3. Exam of the head neck reveal no obvious deformity. There is slight tenderness to palpation about the superior posterior aspect of her scalp. No open wounds or abrasions noted. She has full cervical spine motion without difficulty or pain. She is nontender over the spinous processes or paraspinal musculature. Exam of the upper extremities is unremarkable. She has full range of motion of the shoulders, elbows, wrists and fingers bilaterally. Neurovascular status to the upper extremities is intact. Exam the lower extremities reveals no obvious deformity, no shortening or rotational deformity noted. She has difficulty raising the right leg off the bed independently. There is mild pain to the right groin with hip rotation. She has full foot and ankle motion bilaterally without difficulty or pain. Neurovascular status to the lower extremities is intact. Results X-rays and CT scan of the pelvis reveal a minimally displaced superior rami fracture on the right. Total hip components in good position and alignment. No evidence of periprosthetic fracture. - Labs Labs: Abnormal Lab Results - Last 24 Hours (Table) 03/02/23 Range/Units 04:28 Sodium 133 L (137-145) mmol/L Potassium 5.2 H (3.5-5.1) mmol/L Phosphorus 4.7 H (2.5-4.5) mg/dL H & H 03/02/23 Range/Units 04:28 Hgb 12.2 (11.4-16.0) gm/dL Hct 37.1 (34.0-46.0) % Result Diagrams: 03/02/23 04:28 03/02/23 04:28 Assessment and Plan (1) Fall Current Visit: Yes Status: Acute Code(s): W19.XXXA - UNSPECIFIED FALL, INITIAL ENCOUNTER SNOMED Code(s): 2863426 (2) Pubic ramus fracture Current Visit: Yes Status: Acute Code(s): S32.599A - OTH FRACTURE OF UNSP PUBIS, INIT ENCNTR FOR CLOSED FRACTURE SNOMED Code(s): 59637958 (3) Weakness Current Visit: Yes Status: Acute Code(s): R53.1 - WEAKNESS SNOMED Code(s): 42293514 Plan: The clinical and radiographic findings are discussed with the patient. I have a lso spoken with her son over the phone. She is admitted to our service for further treatment and physical therapy/patient therapy evaluation and likely an inpatient rehab placement. There is no surgical indication at this time. The patient and family understand and agree with the plan.
[2023-03-02] MEDS ORDERED: LORazepam 1 MG TAB PO PRN ×3 (11:49)
[2023-03-02] MEDS ORDERED: LORazepam 0.5 MG TAB PO PRN (11:49)
[2023-03-02] MEDS ORDERED: cloNIDine HCL 0.1 MG TAB PO PRN (11:50)
--- NOTE | 2023-03-02 12:33 | CONS ---
CONSULTATION REASON FOR CONSULTATION: Advice regarding diabetes mellitus and other medical issues, requested by Orthopedics. HISTORY OF PRESENT ILLNESS: This is a 72-year-old woman with a past medical history of multiple medical problems including diabetes mellitus, hypertension, apparently had an accidental fall. The patient was complaining of right hip pain and difficulty walking. Evaluation revealed right superior pubic ramus fracture and acute fracture of the right inferior pubic ramus. The patient admitted for further evaluation. There is no history of any fever, rigor, or chills. PAST MEDICAL HISTORY: Reviewed, include diabetes mellitus. Rest of the history and rest of the chart are also reviewed. HOME MEDICATIONS: Reviewed, include Januvia. Rest of the medications and rest of the chart are also reviewed. ALLERGIES: None. FAMILY HISTORY: History of pneumonia in the family. SOCIAL HISTORY: History of alcohol abuse. History of nicotine dependence. REVIEW OF SYSTEMS: Fourteen-point review of systems is negative except as mentioned earlier. PHYSICAL EXAMINATION: VITAL SIGNS: Pulse is 63, blood pressure 174/67, respirations 18. HEENT: Conjunctivae normal. NECK: No jugular venous distention. CARDIOVASCULAR: S1, S2. RESPIRATIONS: Breath sounds diminished at the bases. ABDOMEN: Soft. Wound of the right hip is painful. NERVOUS SYSTEM: Nonfocal. SKIN: No ulcer, rash, bleeding. JOINTS: No active deforming arthropathy. LABORATORY DATA: Reviewed. ASSESSMENT: 1. Fall and right pelvis fracture of the right superior/inferior pubic rami. 2. Diabetes mellitus, type 2. 3. ETOH. 4. History of nicotine dependence. 5. Hypertension. 6. Hyperlipidemia. 7. Gait dysfunction. 8. Pain, controlled. 9. Multiple medical issues. RECOMMENDATIONS AND DISCUSSION: This is a 72-year-old woman, who presented with multiple complex medical issues. We will monitor the patient closely, continue current medical management, continue symptomatic treatment. I would recommend DVT prophylaxis, monitor blood sugars closely. Otherwise, I would also recommend CIWA protocol and possible inpatient rehab. Resume the home medications once they are confirmed. We will follow the patient closely with you. Overall prognosis guarded. Discussed with patient, understands. Further recommendation to follow. MMODL / IJN: [id number] /
[2023-03-02] MEDS: ALBUTEROL NEBULIZED 2.5 MG/3 ML INHALATION SCH ×2 (13:50→20:54)
[2023-03-02] MEDS: NICOTINE 14MG/24HR PATCH TRANSDERM SCH (14:36)
[2023-03-02] MEDS: cloNIDine HCL 0.1 MG TAB PO SCH ×2 (14:36→19:57)
[2023-03-02 17:06] LABS: Glucose,Whole Blood 166 mg/dL (70-110)
[2023-03-02 20:37] LABS: Glucose,Whole Blood 324 mg/dL (70-110)
[2023-03-02] MEDS ORDERED: ALBUTEROL NEBULIZED 2.5 MG/3 ML INHALATION PRN (21:29)
[2023-03-03] MEDS: SODIUM CHLORIDE 0.9% 1,000 ML IV SCH ×3 (06:07→22:42)
[2023-03-03] MEDS: ACETAMINOPHEN TAB 500 MG TAB PO PRN ×3 (06:43→21:41)
[2023-03-03 07:05] LABS: Glucose,Whole Blood 152 mg/dL (70-110)
[2023-03-03] MEDS: ALBUTEROL NEBULIZED 2.5 MG/3 ML INHALATION SCH ×3 (07:19→18:09)
[2023-03-03 07:37] LABS: Basophils % (A) 0 %; Eosinophils # (A) 0.1 k/uL (0-0.7); Eosinophils % (A) 1 %; HCT 30.5 % (34.0-46.0); Lymphocytes # (A) 1.1 k/uL (1.0-4.8); Lymphocytes % (A) 23 %; MCH 31.1 pg (25.0-35.0); MCHC 32.4 g/dL (31.0-37.0); Mean Platelet Volume 6.9; Monocytes # (A) 0.6 k/uL (0-1.0); Monocytes % (A) 12 %; Neutrophils % (A) 61 %; Platelet Count 243 k/uL (150-450); RBC 3.17 m/uL (3.80-5.40); RDW 13.3 % (11.5-15.5)
[2023-03-03 07:38] LABS: HGB 9.9 gm/dL (11.4-16.0)
[2023-03-03 11:03] LABS: ALT 16 U/L (8-44); AST 21 U/L (13-35); Albumin 3.2 d/dL (3.8-4.9); Alkaline Phosphatase 71 U/L (41-126); BUN/Creat Ratio 13.14 Ratio (12.00-20.00); Blood Urea Nitrogen 9.2 mg/dL (9.0-27.0); Calcium 8.3 mg/dL (8.7-10.3); Carbon Dioxide 23.5 mmol/L (21.6-31.8); Glucose 151 mg/dL (70-110); Magnesium 1.6 mg/dL (1.5-2.4)
[2023-03-03 11:04] LABS: Albumin/Globulin Ratio 1.88 Ratio (1.60-3.17); Chloride 100 mmol/L (96-109); Globulin 1.7 d/dL (1.6-3.3); Phosphorus 3.1 mg/dL (2.4-5.1); Potassium 4.3 mmol/L (3.5-5.5); Sodium 131 mmol/L (135-145); Total Bilirubin 0.4 mg/dL (0.3-1.2); Total Protein 4.9 d/dL (6.2-8.2)
--- NOTE | 2023-03-03 11:18 | P.PN ---
Subjective Progress Note Date: 03/03/23 Principal diagnosis: Pubic rami fracture. Right hip pain. Multiple falls. 72-year-old female presents to the emergency department with chief complaint of fall. She states that she was walking earlier with her walker when the wheel caught on a counter and she felt on her right-sided hip and hit her head on the floor. She reports pain to her medial thigh. Denies any other injury. She reports that she is not able to walk on the right leg. Denies numbness, tingling. She was found to have a superior rami fracture and is admitted to orthopedics for further treatment and possible inpatient rehab placement. She states that she has been falling a lot at home. She does live alone and is having some difficulty managing. 03/03/2023: The patient is doing fairly well from an orthopedic standpoint. She has no new complaints or concerns today. Vital signs are stable. Objective - Vital Signs Vital signs: Vital Signs Temp 98.4 F 03/03/23 07:40 Pulse 70 03/03/23 07:40 Resp 19 03/03/23 07:40 BP 161/73 03/03/23 07:40 Pulse Ox 98 03/03/23 07:40 FiO2 Intake & Output 03/02/23 03/03/23 03/03/23 18:59 06:59 18:59 Intake Total 240 Output Total 200 Balance 40 Weight 44.452 kg Intake: Oral 240 Output: Urine 200 Other: Voiding Method External Catheter Bedside Commode # Voids 3 1 # Bowel Movements 1 - Exam This is a pleasant 72-year-old female in no acute distress. She is alert and oriented 3. She is moving fairly well in bed. She is able to lift each leg off the bed with pain on the right. She has full foot ankle motion without difficulty. Neurovascular status to the lower extremities is intact. - Labs CBC & Chem 7: 03/03/23 07:06 03/03/23 07:06 Labs: Abnormal Lab Results - Last 24 Hours (Table) 03/02/23 03/02/23 03/03/23 Range/Units 16:55 20:35 07:03 RBC (3.80-5.40) m/uL Hgb (11.4-16.0) gm/dL Hct (34.0-46.0) % Sodium (135-145) mmol/L Glucose (70-110) mg/dL POC Glucose (mg/dL) 166 H 324 H 152 H (70-110) mg/dL Calcium (8.7-10.3) mg/dL Total Protein (6.2-8.2) d/dL Albumin (3.8-4.9) d/dL 03/03/23 03/03/23 Range/Units 07:06 07:06 RBC 3.17 L (3.80-5.40) m/uL Hgb 9.9 L D (11.4-16.0) gm/dL Hct 30.5 L (34.0-46.0) % Sodium 131 L (135-145) mmol/L Glucose 151 H (70-110) mg/dL POC Glucose (mg/dL) (70-110) mg/dL Calcium 8.3 L (8.7-10.3) mg/dL Total Protein 4.9 L (6.2-8.2) d/dL Albumin 3.2 L (3.8-4.9) d/dL Assessment and Plan (1) Fall Current Visit: Yes Status: Acute Code(s): W19.XXXA - UNSPECIFIED FALL, INITIAL ENCOUNTER SNOMED Code(s): 6547414 (2) Pubic ramus fracture Current Visit: Yes Status: Acute Code(s): S32.599A - OTH FRACTURE OF UNSP PUBIS, INIT ENCNTR FOR CLOSED FRACTURE SNOMED Code(s): 89487834 (3) Weakness Current Visit: Yes Status: Acute Code(s): R53.1 - WEAKNESS SNOMED Code(s): 32563078 Plan: The clinical and radiographic findings are discussed with the patient. I have also spoken with her son over the phone. She is admitted to our service for further treatment and physical therapy/patient therapy evaluation and likely an inpatient rehab placement. There is no surgical indication at this time. The patient and family understand and agree with the plan. She may be able to go to [facility] today if cleared and placement is arranged.
--- NOTE | 2023-03-03 11:28 | P.DS ---
Providers Date of admission: 03/02/23 05:36 Expected date of discharge: 03/03/23 Attending physician: Rashid Coleman Consults: 03/02/23 05:36 Consult Physician Routine Consulting Provider: Juan Trevino Consult Reason/Comments: [employer] Do you want consulting provider notified?: Yes Primary care physician: Justin Clifford - Discharge Diagnosis(es) (1) Fall Current Visit: Yes Status: Acute (2) Pubic ramus fracture Current Visit: Yes Status: Acute (3) Weakness Current Visit: Yes Status: Acute Hospital Course: 72-year-old female presents to the emergency department with chief complaint of fall. She states that she was walking earlier with her walker when the wheel caught on a counter and she felt on her right-sided hip and hit her head on the floor. She reports pain to her medial thigh. Denies any other injury. She reports that she is not able to walk on the right leg. Denies numbness, tingling. She was found to have a superior rami fracture and is admitted to orthopedics for further treatment and possible inpatient rehab placement. She states that she has been falling a lot at home. She does live alone and is having some difficulty managing. The patient has been evaluated by physical therapy. She is able to get up with the walker but is a bit unstable. It is recommended she go to inpatient rehab. She may be discharged today to inpatient rehab if cleared medically and placement is arranged. Please see [facility] rec for accurate list of home medications. Patient Condition at Discharge: Fair Plan - Discharge Summary Discharge Rx Participant: No New Discharge Prescriptions: New HYDROcodone/APAP 5-325MG [[place] 5-325] 1 tab PO Q6HR PRN #32 tab PRN Reason: Pain No Action lisinopriL [Zestril] 10 mg PO DAILY Albuterol Sulfate [Ventolin HFA] 1 - 2 puff INHALATION RT-Q6H PRN PRN Reason: Shortness Of Breath Atorvastatin [Lipitor] 10 mg PO DAILY sitaGLIPtin [Januvia] 50 mg PO DAILY Pantoprazole [Protonix] 40 mg PO DAILY Fluticasone Nasal [place] [Flonase Nasal [place]] 1 spray EA NOSTRIL DAILY DULoxetine HCL [Cymbalta] 20 mg PO DAILY Discharge Medication List lisinopriL [Zestril] 10 mg PO DAILY 09/17/18 [History] Albuterol Sulfate [Ventolin HFA] 1 - 2 puff INHALATION RT-Q6H PRN 02/01/20 [History] Atorvastatin [Lipitor] 10 mg PO DAILY 02/01/20 [History] DULoxetine HCL [Cymbalta] 20 mg PO DAILY 07/02/22 [History] Fluticasone Nasal [place] [Flonase Nasal [place]] 1 spray EA NOSTRIL DAILY 03/02/23 [History] Pantoprazole [Protonix] 40 mg PO DAILY 03/02/23 [History] sitaGLIPtin [Januvia] 50 mg PO DAILY 03/02/23 [History] HYDROcodone/APAP 5-325MG [[place] 5-325] 1 tab PO Q6HR PRN #32 tab 03/03/23 [Rx] Follow up Appointment(s)/Referral(s): Rashid Coleman MD [STAFF PHYSICIAN] - 3 Weeks Justin Clifford MD [Primary Care Provider] - 1-2 days Activity/Diet/Wound Care/Special Instructions: May bear weight as tolerated with walker. Follow-up with Dr. Coleman in 3 weeks for x-ray. Discharge Disposition: TRANSFER TO SNF/ECF
[2023-03-03 11:48] VITALS: BMI 18.5
--- NOTE | 2023-03-03 12:22 | PN ---
PROGRESS NOTE DATE OF SERVICE: 03/03/2023 SUBJECTIVE: This is a 72-year-old woman, who was admitted with fall and right pelvis fracture, is being closely monitored. No chest pain or palpitation. The patient is complaining of pelvis pain. OBJECTIVE: VITAL SIGNS: Pulse is 70, blood pressure 161/70, respirations 19. CHEST: Clear to auscultation. CARDIOVASCULAR: S1, S2. ABDOMEN: Soft. NERVOUS SYSTEM: Nonfocal. EXTREMITIES: Movements of the legs are painful. ASSESSMENT: 1. Fall and right pelvis fracture with right superior and inferior pubic rami. 2. Diabetes mellitus, type 2. 3. EtOH. 4. History of nicotine dependence. 5. Hypertension. 6. Hyperlipidemia. 7. Multiple medical issues. 8. Gait dysfunction. RECOMMENDATIONS: Recommend to continue current medical management, continue symptomatic management, and pain management. Recommend VTE prophylaxis. Repeat labs. I would also recommend PT/OT evaluation, possible ECF rehab. DVT prophylaxis. Further recommendations to follow. MMODL / IJN: [id number] /
[2023-03-03 12:30] LABS: Glucose,Whole Blood 220 mg/dL (70-110)
[2023-03-03] MEDS: THIAMINE 100 MG TAB PO SCH (12:43)
[2023-03-03] MEDS: ATORVASTATIN 10 MG TAB PO SCH (12:43)
[2023-03-03] MEDS: MULTIVITAMINS, THERA 1 EACH TAB PO SCH (12:44)
[2023-03-03] MEDS: DULoxetine HCL 20 MG CAPSULE.DR PO SCH (12:44)
[2023-03-03] MEDS: lisinopriL 10 MG TAB PO SCH (12:44)
[2023-03-03] MEDS: FOLIC ACID 1 MG TAB PO SCH (12:44)
[2023-03-03] MEDS: LINAGLIPTIN 5 MG TABLET PO SCH (12:44)
[2023-03-03] MEDS: cloNIDine HCL 0.1 MG TAB PO SCH ×2 (13:01→21:41)
[2023-03-03] MEDS: NICOTINE 14MG/24HR PATCH TRANSDERM SCH (13:01)
[2023-03-03] MEDS: PANTOPRAZOLE 40 MG/10 ML VIAL IV SCH (13:09)
[2023-03-03] MEDS: FLUTICASONE 50MCG/SPRAY NASAL 16GM EA NOSTRIL SCH (13:09)
[2023-03-03 17:10] LABS: Glucose,Whole Blood 321 mg/dL (70-110)
[2023-03-03 19:38] VITALS: RESP 16
[2023-03-03 20:06] LABS: Glucose,Whole Blood 280 mg/dL (70-110)
[2023-03-04 07:21] LABS: Glucose,Whole Blood 152 mg/dL (70-110)
[2023-03-04 08:05] LABS: Basophils % (A) 0 %; Eosinophils # (A) 0.1 k/uL (0-0.7); Eosinophils % (A) 2 %; HCT 29.9 % (34.0-46.0); HGB 9.4 gm/dL (11.4-16.0); Lymphocytes # (A) 1.3 k/uL (1.0-4.8); Lymphocytes % (A) 24 %; MCH 30.5 pg (25.0-35.0); MCHC 31.5 g/dL (31.0-37.0); MCV 96.9 fL (80.0-100.0); Mean Platelet Volume 7.9; Monocytes # (A) 0.6 k/uL (0-1.0); Monocytes % (A) 12 %; Neutrophils # (A) 3.1 k/uL (1.3-7.7); Neutrophils % (A) 59 %; Platelet Count 209 k/uL (150-450); RBC 3.08 m/uL (3.80-5.40); RDW 13.6 % (11.5-15.5); WBC 5.3 k/uL (3.8-10.6)
[2023-03-04] MEDS: ALBUTEROL NEBULIZED 2.5 MG/3 ML INHALATION SCH ×2 (08:27→11:53)
[2023-03-04 08:40] VITALS: BP 139/71; PULSE 59; TEMP 98.6
[2023-03-04 08:45] LABS: African American GFR (CKD) >90 (>60 ml/min/1.73 sqM); Anion Gap 4 mmol/L; Blood Urea Nitrogen 10 mg/dL (7-17); Calcium 8.3 mg/dL (8.4-10.2); Carbon Dioxide 26 mmol/L (22-30); Chloride 103 mmol/L (98-107); Glucose 126 mg/dL (74-99); Non-African American GFR(CKD) >90 (>60 ml/min/1.73 sqM); Sodium 133 mmol/L (137-145)
[2023-03-04] MEDS ORDERED: DEXTROSE 50% SYRINGE 50 ML IVP PRN ×2 (09:31)
[2023-03-04] MEDS: NICOTINE 14MG/24HR PATCH TRANSDERM SCH (09:35)
[2023-03-04] MEDS: cloNIDine HCL 0.1 MG TAB PO SCH (09:35)
[2023-03-04] MEDS: DULoxetine HCL 20 MG CAPSULE.DR PO SCH (09:35)
[2023-03-04] MEDS: ATORVASTATIN 10 MG TAB PO SCH (09:35)
[2023-03-04] MEDS: ACETAMINOPHEN TAB 500 MG TAB PO PRN (09:36)
[2023-03-04] MEDS: FOLIC ACID 1 MG TAB PO SCH (09:38)
[2023-03-04] MEDS: lisinopriL 10 MG TAB PO SCH (09:38)
[2023-03-04] MEDS: FLUTICASONE 50MCG/SPRAY NASAL 16GM EA NOSTRIL SCH (09:38)
[2023-03-04] MEDS: LINAGLIPTIN 5 MG TABLET PO SCH (09:38)
[2023-03-04] MEDS: THIAMINE 100 MG TAB PO SCH (09:38)
[2023-03-04] MEDS: MULTIVITAMINS, THERA 1 EACH TAB PO SCH (09:38)
[2023-03-04] MEDS: PANTOPRAZOLE 40 MG/10 ML VIAL IV SCH (10:10)
--- NOTE | 2023-03-04 12:03 | P.DS ---
Providers Date of admission: 03/02/23 05:36 Expected date of discharge: 03/04/23 Attending physician: Rashid Coleman Consults: 03/02/23 05:36 Consult Physician Routine Consulting Provider: Juan Trevino Consult Reason/Comments: [employer] Do you want consulting provider notified?: Yes Primary care physician: Justin Clifford - Discharge Diagnosis(es) (1) Pelvic pain Current Visit: Yes Status: Acute (2) History of myocardial infarction Current Visit: Yes Status: Acute (3) Current every day smoker Current Visit: Yes Status: Acute (4) Fall Current Visit: Yes Status: Acute (5) Pubic ramus fracture Current Visit: Yes Status: Acute (6) Diabetes Current Visit: No Status: Acute (7) HTN (hypertension) Current Visit: No Status: Acute (8) Hyperlipemia Current Visit: No Status: Acute Hospital Course: This is a pleasant 72-year-old female who presented with right minimally displaced superior pubic rami fracture status post fall. She is admitted for further treatment and evaluation. She has been improving with conservative treatment. Nursing states she was able to bedside chair today. She came for discharge to rehabilitation facility yesterday but was unable to obtain insurance authorization. They're continuing or her insurance authorization today. Patient does live at home alone and would have some difficulty mobilizing at home independently and was willing to go to rehabilitation at time of discharge. She is not currently complaining of lower extremity numbness or tingling. She does have some pain in her pelvis due to her fracture with increased range of motion. Patient does admit to some swelling in the bilateral lower extremities which has been improving. She has bruising clear for discharge by medicine. She may ambulate as tolerated with the assistance of a walker. She will plan to follow-up for further evaluation in the outpatient setting with Dr. Coleman in approximately 3 weeks for further evaluation. Was prescribed hydrocodone 5 mg/325 mg 1 tab every 6 hours as needed for pain, dispensed #32 at the time of discharge. Patient's other medical diagnoses include diabetes mellitus, hyperlipidemia, hypertension, and history of myocardial infarction. Patient does admit to current every day smoker. Physical Exam: Patient is awake, alert, and oriented 3 Vital signs stable Good chest excursion with deep inspiration and expiration No signs or symptoms of DVT; no calf pain Some generalized swelling in the lower extremities Neurovascular intact bilateral lower extremities Dorsiflexion and plantarflexion positive sustained bilateral lower extremities Some increased pelvic pain with internal and external rotation of the right hip Patient Condition at Discharge: Fair Plan - Discharge Summary Discharge Rx Participant: No New Discharge Prescriptions: New HYDROcodone/APAP 5-325MG [[place] 5-325] 1 tab PO Q6HR PRN #32 tab PRN Reason: Pain No Action lisinopriL [Zestril] 10 mg PO DAILY Albuterol Sulfate [Ventolin HFA] 1 - 2 puff INHALATION RT-Q6H PRN PRN Reason: Shortness Of Breath Atorvastatin [Lipitor] 10 mg PO DAILY sitaGLIPtin [Januvia] 50 mg PO DAILY Pantoprazole [Protonix] 40 mg PO DAILY Fluticasone Nasal [place] [Flonase Nasal [place]] 1 spray EA NOSTRIL DAILY DULoxetine HCL [Cymbalta] 20 mg PO DAILY Discharge Medication List lisinopriL [Zestril] 10 mg PO DAILY 09/17/18 [History] Albuterol Sulfate [Ventolin HFA] 1 - 2 puff INHALATION RT-Q6H PRN 02/01/20 [Hi story] Atorvastatin [Lipitor] 10 mg PO DAILY 02/01/20 [History] DULoxetine HCL [Cymbalta] 20 mg PO DAILY 07/02/22 [History] Fluticasone Nasal [place] [Flonase Nasal [place]] 1 spray EA NOSTRIL DAILY 03/02/23 [History] Pantoprazole [Protonix] 40 mg PO DAILY 03/02/23 [History] sitaGLIPtin [Januvia] 50 mg PO DAILY 03/02/23 [History] HYDROcodone/APAP 5-325MG [[place] 5-325] 1 tab PO Q6HR PRN #32 tab 03/03/23 [Rx] Follow up Appointment(s)/Referral(s): Rashid Coleman MD [STAFF PHYSICIAN] - 3 Weeks Justin Clifford MD [Primary Care Provider] - 1-2 days Activity/Diet/Wound Care/Special Instructions: May bear weight as tolerated with walker. Follow-up with Dr. Coleman in 3 weeks for x-ray. Discharge Disposition: TRANSFER TO SNF/ECF
[2023-03-04 12:19] LABS: Glucose,Whole Blood 237 mg/dL (70-110)
[2023-03-04] MEDS ORDERED: INSULIN ASPART (NovoLOG) 100 UNIT/ML VIAL SQ SCH (12:30)
[2023-03-04] MEDS: SODIUM CHLORIDE 0.9% 1,000 ML IV SCH (13:35)
--- NOTE | 2023-03-04 20:00 | PN ---
PROGRESS NOTE DATE OF SERVICE: 03/04/2023 SUBJECTIVE: This is a 72-year-old woman, who was admitted with fall and right pelvic fracture, is improving significantly. No chest pain. No palpitations. No fever. PHYSICAL EXAMINATION: VITAL SIGNS: Pulse is 59, blood pressure 130/76, respirations 16. CHEST: Clear to auscultation. CARDIOVASCULAR: S1, S2. ABDOMEN: Soft. NERVOUS SYSTEM: Nonfocal. LABORATORY DATA: Reviewed. ASSESSMENT: 1. Fall and right pelvis fracture with right superior/inferior pubic rami fracture. 2. Diabetes mellitus, type 2. 3. History of EtOH. 4. History of nicotine dependence. 5. Multiple medical issues. RECOMMENDATIONS: Recommend to continue current medications. Continue with pain management. DVT prophylaxis. Resume the home medications. Closely follow with primary physician in the outpatient setting. Further recommendations to follow. MEAGAN / PATN: [id number] /
== END 2023-03-04 13:53 ==
LOC: EC 20:04 → 5NMEDONC 03-02 05:36 → INTOOBSV 03-02 05:36 → 5NMEDONC 03-02 14:15
PROVIDERS: ADMIT Orthopaedic Surgery; ATTEND Orthopaedic Surgery
DX: S32.511A Fracture of superior rim of right pubis, initial encounter for closed fracture (principal); S32.591A Other specified fracture of right pubis, initial encounter for closed fracture; E11.42 Type 2 diabetes mellitus with diabetic polyneuropathy; I10 Essential (primary) hypertension; E78.5 Hyperlipidemia, unspecified; I25.2 Old myocardial infarction; H91.90 Unspecified hearing loss, unspecified ear; F17.200 Nicotine dependence, unspecified, uncomplicated; M79.651 Pain in right thigh; R29.6 Repeated falls; W18.30XA Fall on same level, unspecified, initial encounter; Y92.009 Unspecified place in unspecified non-institutional (private) residence as the place of occurrence of the external cause; Z79.899 Other long term (current) drug therapy; Z79.84 Long term (current) use of oral hypoglycemic drugs; Z96.641 Presence of right artificial hip joint; Z87.898 Personal history of other specified conditions; Z98.51 Tubal ligation status; Z90.721 Acquired absence of ovaries, unilateral; Z98.890 Other specified postprocedural states; Z83.3 Family history of diabetes mellitus; Z80.3 Family history of malignant neoplasm of breast; Z82.49 Family history of ischemic heart disease and other diseases of the circulatory system; Z81.1 Family history of alcohol abuse and dependence; Z83.79 Family history of other diseases of the digestive system
CPT/HCPCS: 96376; 96361 ×3; 96372; 96374; 96375; 99285; 36415; 94640 ×3; 93005; 97162; 97166; 80053 ×2; 80048; 84443; 83735 ×2; 84100 ×2; 85025 ×3; 81003; 80320; 87635; 73502; 73552; 71045; 72192; 72125; 70450; 73700; G0378 ×2; S4990 ×2; J2060; J1885; C9113 ×2